=== PATIENT | female | born 1965 | race Caucasian/White ===

== ENCOUNTER → 2016-10-14 | Outpatient (CLI) | payer MEDICAID | LOC: RAD 07:37 | PROVIDERS: ATTEND Surgery | DX: R11.2 Nausea with vomiting, unspecified (principal); R10.11 Right upper quadrant pain | CPT/HCPCS: 78264; A9541 ==

== ENCOUNTER → 2016-12-02 | Outpatient (CLI) | payer MEDICAID | LOC: OD 09:18 | PROVIDERS: ATTEND Surgery | DX: R73.09 Other abnormal glucose (principal) | CPT/HCPCS: 36415; 83036 ==

== ENCOUNTER 2017-11-18 21:47 | Emergency (ER) | payer MEDICAID ==
--- NOTE | 2017-11-18 22:54 | ER Document Report ---
ED Medical Screen (RME) - General Chief Complaint: High Blood Sugar Stated Complaint: BLOOD SUGAR PROBLEMS Time Seen by Provider: 11/18/17 22:50 Mode of Arrival: Wheelchair Information source: Relative Notes: 52-year-old female presents to ED for very agitated shaken unable to stand on her feet. She is a diabetic but she also has a history of a DVT in his heart attack. states that she told him around 4 PM she took her insulin and then when she was trying to put the noodles and she got shaky and sweaty and hot and could not make any sense. He states he last saw her at 1:30 in the afternoon. Her Accu-Chek when she first came to the emergency room was 111 her Accu-Chek right now is 102. She is very shaky and agitated still at this time. She is not making complete sense. states this is not her normal self. There is no facial droop pupils are slow to respond, she cannot stand up. Will start blood work urine and CT the head and she will be examined by another provider. I have greeted and performed a rapid initial assessment of this patient. A comprehensive ED assessment and evaluation of the patient, analysis of test results and completion of medical decision making process will be conducted by an additional ED providers. TRAVEL OUTSIDE OF THE [place] IN LAST 30 DAYS: No - Related Data Allergies/Adverse Reactions: aspirin [Aspirin] Allergy (Severe, Verified 11/03/12 10:02) Hives Influenza A (H1N1)Vaccine 2009 * [Influenza A (H1N1)Vaccine 2009] Allergy ( Severe, Verified 11/03/12 10:02) Anaphylaxis Influenza Virus Vaccines [Influenza Virus Vaccine] Allergy (Severe, Verified 10:02) Anaphylaxis Tetanus Vaccines and Toxoid [Tetanus] Allergy (Severe, Verified 11/03/12 10:02) Anaphylaxis latex [Latex] Allergy (Intermediate, Verified 11/03/12 10:02) Hives Penicillins Allergy (Intermediate, Verified 01/12/13 15:23) Nausea miconazole [Miconazole] Allergy (Mild, Verified 11/03/12 10:02) Edema levothyroxine sodium [Levothyroxine Sodium] Allergy (Verified 11/03/12 10:02) swelling Past Medical History - Past Medical History Cardiac Medical History: Reports: Hx Coronary Artery Disease, Hx Heart Attack, Hx Hypercholesterolemia, Hx Hypertension, Hx Pulmonary Embolism - 2006 Denies: Hx Atrial Fibrillation, Hx Congestive Heart Failure, Hx Peripheral Vascular Disease, Hx Heart Murmur Pulmonary Medical History: Reports: Hx Asthma, Hx Bronchitis, Hx Pneumonia, Hx Respiratory Failure Denies: Hx COPD, Hx Sleep Apnea, Hx Tuberculosis Neurological Medical History: Reports: Hx Cerebrovascular Accident - Memory loss , Hx Migraine. Denies: Hx Seizures Endocrine Medical History: Reports: Hx Diabetes Mellitus Type 2, Hx Hypothyroidism. Denies: Hx Graves' Disease, Hx Hyperthyroidism Renal/ Medical History: Reports: Hx Kidney Stones, Hx Pelvic Inflammatory Disease. Denies: Hx End Stage Renal Disease, Hx Ovarian Cysts, Hx Peritoneal Dialysis Malignancy Medical History: Denies: Hx Breast Cancer, Hx Cervical Cancer, Hx Leukemia, Hx Lung Cancer, Hx Ovarian Cancer GI Medical History: Reports: Hx Irritable Bowel, Hx Liver Failure - 2010, Hx Ulcer. Denies: Hx Crohn's Disease, Hx Gastroesophageal Reflux Disease, Hx Hiatal Hernia, Hx Pancreatitis Musculoskeltal Medical History: Reports Hx Arthritis, Denies Hx Fibromyalgia, Denies Hx Multiple Sclerosis, Denies Hx Muscular Dystrophy Psychiatric Medical History: Denies: Hx Bipolar Disorder, Hx Dementia, Hx Depression, Hx Post Traumatic Stress Disorder, Hx Schizophrenia Traumatic Medical History: Reports: Hx Fractures Infectious Medical History: Denies: Hx HIV Past Surgical History: Reports: Hx Cardiac Surgery - stent placed 2006, Hx Section - partial 2008, Hx Gynecologic Surgery - partial hysterectomy, Hx Hysterectomy, Hx Orthopedic Surgery - back, right knee, left ankle. Denies: Hx Appendectomy, Hx Bowel Surgery, Hx Cholecystectomy, Hx Colostomy, Hx Coronary Artery Bypass Graft, Hx Gastric Bypass Surgery, Hx Herniorrhaphy, Hx Mastectomy, Hx Pacemaker, Hx Tonsillectomy, Hx Tubal Ligation - Immunizations Hx Diphtheria, Pertussis, Tetanus Vaccination: No - allergic
--- NOTE | 2017-11-18 23:34 | RADIOLOGY REPORT (SQ) ---
EXAM DESCRIPTION: CT HEAD WITHOUT COMPLETED DATE/TIME: 11/18/2017 11:04 pm REASON FOR STUDY: confused shakey COMPARISON: None. TECHNIQUE: Axial images acquired through the brain without intravenous contrast. Images reviewed wi bone, brain and subdural windows. Images stored on PACS. All CT scanners at this facility use dose modulation, iterative reconstruction, and/or weight based d osing when appropriate to reduce radiation dose to as low as reasonably achievable (ALARA). [facility]: Dose Right [facility]: CareDose [facility]: Dose Right [facility]: Teradose 4D [facility]: [employer] RADIATION DOSE: CT Rad equipment meets quality standard of care and radiation dose reduction techniq ues were employed. CTDIvol: 67.0 mGy. DLP: 1182 mGy-cm. mGy. LIMITATIONS: None. FINDINGS: VENTRICLES: Normal size and contour. CEREBRUM: No masses. No hemorrhage. No midline shift. No evidence for acute infarction. Normal gra y/white matter differentiation. No areas of low density in the white matter. CEREBELLUM: No masses. No hemorrhage. No alteration of density. No evidence for acute infarction. EXTRAAXIAL SPACES: No fluid collections. No masses. ORBITS AND GLOBE: No intra- or extraconal masses. Normal contour of globe without masses. CALVARIUM: No fracture. PARANASAL SINUSES: Left maxillary fluid in bilateral maxillary, ethmoid, and frontal sinus mucosal th ickening. SOFT TISSUES: No mass or hematoma. OTHER: No other significant finding. IMPRESSION: No acute intracranial findings. Acute on chronic sinusitis. EVIDENCE OF ACUTE STROKE: NO. COMMENT: Quality ID # [id number]: Final reports with documentation of one or more dose reduction techniques (e.g., Automated exposure control, adjustment of the mA and/or kV according to patient size, use of iterative reconstruction technique) TECHNICAL DOCUMENTATION: JOB ID: [id number] [place]-72 2010 [employer]- All Rights Reserved
[2017-11-19] MEDS ORDERED: NORMAL SALINE 1000 ML 1,000 ML IV ONE (00:21)
--- NOTE | 2017-11-19 01:11 | ER Document Report ---
ED General - General Chief Complaint: High Blood Sugar Stated Complaint: BLOOD SUGAR PROBLEMS Time Seen by Provider: 11/18/17 22:50 Mode of Arrival: Wheelchair Notes: Patient is a 52-year-old female who presents with complaint of altered mental status. Patient and said the for last week her blood sugars have been fluctuating greatly. The blood sugars been running anywhere from 60-600. The said he left the house to go take care of some in town around 1:30 PM. When he returned around 7 PM he noticed that his was confused. Patient herself notes that she is having trouble walking and getting around and also that her speech has been slurred. She denies fevers. She does mentions that she has had a lot of nasal congestion and pressure in his sinuses that started last 24 hours. When I walked into the room she is blowing large amounts of mucus out of her nose. TRAVEL OUTSIDE OF THE [place] IN LAST 30 DAYS: No - Related Data Allergies/Adverse Reactions: aspirin [Aspirin] Allergy (Severe, Verified 11/03/12 10:02) Hives Influenza A (H1N1)Vaccine 2009 * [Influenza A (H1N1)Vaccine 2009] Allergy ( Severe, Verified 11/03/12 10:02) Anaphylaxis Influenza Virus Vaccines [Influenza Virus Vaccine] Allergy (Severe, Verified 10:02) Anaphylaxis Tetanus Vaccines and Toxoid [Tetanus] Allergy (Severe, Verified 11/03/12 10:02) Anaphylaxis latex [Latex] Allergy (Intermediate, Verified 11/03/12 10:02) Hives Penicillins Allergy (Intermediate, Verified 01/12/13 15:23) Nausea miconazole [Miconazole] Allergy (Mild, Verified 11/03/12 10:02) Edema levothyroxine sodium [Levothyroxine Sodium] Allergy (Verified 11/03/12 10:02) swelling Past Medical History - General Information source: Relative - Social History Smoking Status: Current Every Day Smoker Chew tobacco use (# tins/day): No Frequency of alcohol use: None Drug Abuse: None Family History: Reviewed & Not Pertinent Patient has suicidal ideation: No Patient has homicidal ideation: No - Past Medical History Cardiac Medical History: Reports: Hx Coronary Artery Disease, Hx Heart Attack, Hx Hypercholesterolemia, Hx Hypertension, Hx Pulmonary Embolism - 2006 Denies: Hx Atrial Fibrillation, Hx Congestive Heart Failure, Hx Peripheral Vascular Disease, Hx Heart Murmur Pulmonary Medical History: Reports: Hx Asthma, Hx Bronchitis, Hx Pneumonia, Hx Respiratory Failure Denies: Hx COPD, Hx Sleep Apnea, Hx Tuberculosis Neurological Medical History: Reports: Hx Cerebrovascular Accident - Memory loss , Hx Migraine. Denies: Hx Seizures Endocrine Medical History: Reports: Hx Diabetes Mellitus Type 2, Hx Hypothyroidism. Denies: Hx Graves' Disease, Hx Hyperthyroidism Renal/ Medical History: Reports: Hx Kidney Stones, Hx Pelvic Inflammatory Disease. Denies: Hx End Stage Renal Disease, Hx Ovarian Cysts, Hx Peritoneal Dialysis Malignancy Medical History: Denies: Hx Breast Cancer, Hx Cervical Cancer, Hx Leukemia, Hx Lung Cancer, Hx Ovarian Cancer GI Medical History: Reports: Hx Irritable Bowel, Hx Liver Failure - 2010, Hx Ulcer. Denies: Hx Crohn's Disease, Hx Gastroesophageal Reflux Disease, Hx Hiatal Hernia, Hx Pancreatitis Musculoskeltal Medical History: Reports Hx Arthritis, Denies Hx Fibromyalgia, Denies Hx Multiple Sclerosis, Denies Hx Muscular Dystrophy Psychiatric Medical History: Denies: Hx Bipolar Disorder, Hx Dementia, Hx Depression, Hx Post Traumatic Stress Disorder, Hx Schizophrenia Traumatic Medical History: Reports: Hx Fractures Infectious Medical History: Denies: Hx HIV Past Surgical History: Reports: Hx Cardiac Surgery - stent placed 2006, Hx Section - partial 2008, Hx Gynecologic Surgery - partial hysterectomy, Hx Hysterectomy, Hx Orthopedic Surgery - back, right knee, left ankle. Denies: Hx Appendectomy, Hx Bowel Surgery, Hx Cholecystectomy, Hx Colostomy, Hx Coronary Artery Bypass Graft, Hx Gastric Bypass Surgery, Hx Herniorrhaphy, Hx Mastectomy, Hx Pacemaker, Hx Tonsillectomy, Hx Tubal Ligation - Immunizations Hx Diphtheria, Pertussis, Tetanus Vaccination: No - allergic Review of Systems - Review of Systems Notes: My Normal Review Basic REVIEW OF SYSTEMS: CONSTITUTIONAL : Denies fever, chills, or sweats. Denies recent illness. EENT: Venous pressure. Nasal congestion. CARDIOVASCULAR: Denies chest pain. RESPIRATORY: Denies cough, cold, or chest congestion. Denies shortness of breath, difficulty breathing, or wheezing. GASTROINTESTINAL: Denies abdominal pain. Denies nausea, vomiting, or diarrhea. Denies constipation. Last BM: GENITOURINARY: Denies difficulty urinating, painful urination, burning, frequency, or blood in urine. MUSCULOSKELETAL: Denies neck or back pain or joint pain or swelling. SKIN: Denies rash or skin lesions. NEUROLOGICAL: Altered mental status with gait dysfunction. ALL OTHER SYSTEMS REVIEWED AND NEGATIVE. Physical Exam - Vital signs Vitals: Resp Pulse Ox 21 H 97 11/19/17 00:22 11/19/17 00:22 - Notes Notes: General Appearance: Well nourished, alert, cooperative, patient is awake and alert and cooperative and seems aware of what is going on around her however she also seems to be at times hallucinating and picking at things that are not there. Also at times is having garbled speech.. Vitals: reviewed, See vital signs table. Head: no swelling or tenderness to the head Eyes: PERRL, EOMI, Conjuctiva clear Mouth: No decreasd moisture Throat: No tonsillar inflammation, No airway obstruction, No lymphadenopathy Neck: Supple, no neck tenderness, No thyromegaly Nose: Patient is a large amount of yellowish greenish mucus in her nose. I do not see any black lesions or necrotic lesions in the nasopharynx. Lungs: No wheezing, No rales, No rhonci, No accessory muscle use, good air exchange bilaterally. Heart: Normal rate, Regular rythm, No murmur, no rub Abdomen: Normal BS, soft, No rigidity, No abdominal tenderness, No guarding, no rebound, no abdominal masses, no organomegaly Extremities: strength 5/5 in all extremities, good pulses in all extremities, no swelling or tenderness in the extremities, no edema. Skin: warm, dry, appropriate color, no rash Neuro: , oriented x 2, responds appropriately to most questions. Cranial nerves II through XII are intact except for occasional garbled speech. Upon trying to have the patient walk she has had difficulty standing up and getting off the bed. She is unable to get off the bed without my help to steady her. Without restarting her she immediately falls back onto the bed. She cannot take any steps forward. She has equal strength in all 4 extremities. She does not have any focal weakness on one side versus the other. Distal sensation is intact. Course - Re-evaluation Re-evalutation: 11/19/17 01:07 Patient does have some gati disturbances and corrdination issues on exam. This seems more concerning with a cerebellar stroke. She is outside window for thrombolytics as the says the las time he sw her asymptomatic was at 1: 30 pm. She does have some sinus congestion and her CT scan was read as acute on chronic sinusitis so I did call and speak with Dr. Woods, radiologist, and asked him if there were any findings on CT scan consistent with what would be seen with fungal sinusitis. He said there is not. I do understand that fungal sinusitis cannot be fully excluded with CT scan alone however they are usually some typical findings which the patient does not have on the scan. Also I think fungal sinusitis is much less likely being the patient's symptoms were very sudden in onset today. We will continue workup for transfer to the exact cause of the patient's coordination. 11/19/17 01:10 11/19/17 02:27 Patient's blood work came back with a leukocytosis of 27,000 suggests is that this could be meningitis. I will perform a lumbar puncture. I will place patient on isolation precautions. Also informed the and gave him a mask to wear in all as well as place mask and the patient. I have ordered Rocephin and inform the nurse to get that started. 11/19/17 02:57 Lumbar puncture was performed and CSF is clear and has been sent to the lab. 11/19/17 03:47 I have called lab and informed him the importance of needing to know the patient 's cell count on CSF. She says she is running it now and she will call me soon as the result is back. 11/19/17 03:59 Patient does not have elevated white blood cells in CSF. Her mental status is staying stable. She is able answer my questions appropriately but still has some coordination issues and is having headache and pressure in her sinuses. I am try to get in touch with infectious disease doctor and accepting facility to see if we need to start amphotericin B. I have called [facility] and [facility]. They are both on diversion and unable to help. I have called [facility]. They are also on diversion. I will will try to call [facility] in the next [place] to try to help. 11/19/17 04:00 11/19/17 04:23 I spoke with [facility]. They are contacting the infectious disease physician for me. 11/19/17 04:32 I am still having difficulty in touch with infectious disease doctor. Have not heard back from one. I went ahead and ordered amphotericin B as I do have suspicion for fungal sinusitis and I do not want delay treatment any further. 11/19/17 04:53 I did hear back from infectious disease and spoke with Dr. Jailyn Carbajal. She says that she feels that the patient needs to see ENT and have a sinus biopsy before starting antifungals being that the CT scan did not show evidence of fungal sinusitis. She will have me talk to the emergency medicine physician at [facility] to see if they can take the patient is an ER to ER transfer. The ER physician wants me to speak with the ENT doctor. I am waiting to hear back from the ENT doctor. 11/19/17 08:35 I did eventually speak with Dr. Sweeney, ENT physician, who agrees that the patient is to be evaluated. He requests that we do an ER to ER transfer and then he can come down and they can evaluate the patient determine whether not she does need to go to the OR for sinus biopsy. I again expressed to him that I do not know for sure if this is a fungal sinusitis but I have no way of ruling out and being that she has sinusitis on CT scan with altered mental status and she is a poorly controlled diabetic and she has large amount of mucus coming from her nose with a high leukocytosis I feel that this is a strong possibility. He agrees. I therefore spoke with the ER physician, Dr. Vanegas, is very kindly agreed to accept the patient for transfer. She received Rocephin and vancomycin. I will order repeat Accu-Chek to make sure her blood sugars are remaining stable. Dictation of this chart was performed using voice recognition software; therefore, there may be some unintended grammatical errors. 11/19/17 08:37 - Vital Signs Vital signs: Temp Pulse Resp BP Pulse Ox 98.8 F 16 116/82 100 11/19/17 06:19 11/19/17 07:36 11/19/17 07:00 11/19/17 07:36 - Laboratory Result Diagrams: 11/19/17 01:00 11/19/17 01:00 Laboratory results interpreted by me: 11/18/17 11/19/17 11/19/17 22:01 00:23 01:00 WBC 27.4 H RBC 5.29 H Hgb 15.7 H Band Neutrophils % 1 L Abs Neuts (Manual) 18.6 H Abs Lymphs (Manual) 6.0 H Abs Monocytes (Manual) 2.5 H Abs Basophils (Manual) 0.3 H Potassium Est GFR (Non-Af Amer) Glucose POC Glucose 111 H 63 L Calcium Direct Bilirubin Alkaline Phosphatase Ammonia Creatine Kinase Urine Protein Urine Glucose (UA) CSF Glucose Acetaminophen 11/19/17 11/19/17 11/19/17 01:00 02:38 03:30 WBC RBC Hgb Band Neutrophils % Abs Neuts (Manual) Abs Lymphs (Manual) Abs Monocytes (Manual) Abs Basophils (Manual) Potassium 3.1 L Est GFR (Non-Af Amer) 58 L Glucose 47 L POC Glucose Calcium 11.3 H Direct Bilirubin 0.5 H Alkaline Phosphatase 171 H Ammonia < 8.7 L Creatine Kinase 22 L Urine Protein Urine Glucose (UA) CSF Glucose 197 H Acetaminophen < 10 L 11/19/17 04:34 WBC RBC Hgb Band Neutrophils % Abs Neuts (Manual) Abs Lymphs (Manual) Abs Monocytes (Manual) Abs Basophils (Manual) Potassium Est GFR (Non-Af Amer) Glucose POC Glucose Calcium Direct Bilirubin Alkaline Phosphatase Ammonia Creatine Kinase Urine Protein 100 H Urine Glucose (UA) >=500 H CSF Glucose Acetaminophen Discharge - Discharge Referrals: PAUL KUMAR, [employer] [Primary Care Provider] - Follow up as needed
--- NOTE | 2017-11-19 01:12 | ER Document Report ---
ED NIH Stroke Scale - NIH Stroke Scale *: 1. NIH scale should be completed with appropriate accompanying assessment tools. *: 2. The NIH should reflect what the patient is capable of doing and should not be coached by the clinician. 1a. Level of Consciousness: 0=Alert;keenly responsive -: 1=Drowsy -: 2=Obtunded -: 3=Coma/unresponsive or reflex to noxious stimuli. 1a. Responses: 0 1b. Orientation Questions: a. What month is it? -: b. How old are you? -: 0=Answers both questions correctly. -: 1=Answers one question correctly or patient is intubated or has orotracheal trauma. -: 2=Answers neither question correctly. 1b. Responses: 0 1c. Response to commands: a. Open and close eyes? -: b. Redipper and release hand? -: Credit is given despite weakness. Demonstration of task is permitted. Substitute command if hands cannot be used. -: 0=Performs both tasks correctly -: 1=Performs one task correctly -: 2=Performs neither task correctly 1c. Responses: 0 2. Gaze: Establish eye contact and instruct patient to "Follow my finger" -: 0=Normal -: 1=Partial gaze palsy. Gaze is abnormal in one or both eyes, but where forced deviation or total gaze paresis is not present. -: 2=Forced deviation or total gaze paresis. 2. Responses: 0 3. Visual Kolb: Sees fingers in all four quadrants. -: 0=No visual loss. -: 1=Partial hemianopsia. -: 2=Complete hemianopsia. -: 3=Bilateral hemianopsia (including Cortical blindness) 3. Responses: 0 4. Facial Movement: Instruct patient to: -: a. Show me your teeth -: b. Raise your eyebrows -: c. Close your eyes -: d. Smile -: 0=Normal symmetrical movement -: 1=Minor paralysis (flattened nasolabial fold, asymmetry on smiling). -: 2=Partial paralysis (total or near total paralysis of lower face). -: 3=Complete paralysis of upper and lower face 4. Responses: 0 5. Motor functions (left arm): Alternate sides and extend each arm with palms down (90 degrees if sitting or 45 degrees for supine). -: 0=No drift;limb holds for full 10 seconds. -: 1=Drift; limb holds but drifts down before full 10 seconds, but does not hit bed. -: 2=Some effort against gravity; limb cannot get to or maintain position. -: 3=No effort against gravity; limb falls. -: 4=No movement. -: UN=Amputation, joint fusion, explain in comments. 5. Responses (left arm): 0 5. Motor Functions (right arm): Alternate sides and extend each arm with palms down (90 degrees if sitting or 45 degrees for supine). -: 0=No drift;limb holds for full 10 seconds. -: 1=Drift; limb holds but drifts down before full 10 seconds, but does not hit bed. -: 2=Some effort against gravity; limb cannot get to or maintain position. -: 3=No effort against gravity; limb falls. -: 4=No movement. -: UN=Amputation, joint fusion, explain in comments. 5. Responses (right arm): 0 6. Motor Functions (left leg): With patient lying supine, alternate sides and extend each leg (30 degrees always while supine). -: 0=No drift, leg holds position for full 5 seconds -: 1=Drift; leg falls before full 5 seconds but does not hit bed. -: 2=Some effort against gravity, leg falls to bed but some effort against gravity. -: 3=No effort against gravity, leg falls to bed immediately. -: 4=No movement. -: UN=Amputation, joint fusion; explain in comments. 6. Responses (left leg): 0 6. Motor Functions (right leg): With patient lying supine, alternate sides and extend each leg (30 degrees always while supine). -: 0=No drift, leg holds position for full 5 seconds -: 1=Drift; leg falls before full 5 seconds but does not hit bed. -: 2=Some effort against gravity, leg falls to bed but some effort against gravity. -: 3=No effort against gravity, leg falls to bed immediately. -: 4=No movement. -: UN=Amputation, joint fusion; explain in comments. 6. Responses (right leg): 0 7. Limb Ataxia: With eyes open instruct patient to: -: a. "Touch your finger to your nose". -: b. "Touch your heel to your arango" -: 0=Absent -: 1=Present in one limb. -: 2=Present in two limbs. -: UN=Amputation or joint fusion; explain in comments. 7. Responses: 2 8. Sensory: Test sensation using pinprick or noxious stimuli. Test as many body parts as possible. -: 0=Normal;no sensory loss -: 1=Mile to moderate sensory loss (patient feels pin prick but is less sharp on affected side). -: 2=Severe or total sensory loss. 8. Responses: 0 9. Best Language: Instruct patient to: -: a. "Describe what you see in this picture." -: b. "Name the items in this picture." -: c. "Read these sentences." -: 0=No aphasia, normal -: 1=Mild to moderate aphasia. -: 2=Severe aphasia -: 3=Mute, global aphasia, no usable speech or auditory comprehension. 9. Responses: 0 10. Articulation, Dysarthia: Instruct patient to: -: "Read these words" or "Repeat these words" -: 0=Normal -: 1=Mild to moderate; patient may slur some words but can be understood without difficulty. -: 2=Severe; patients speech so slurred as to be unintelligible in the absence of dysphasia. -: UN=Intubated or other physical barrier, explain in comments. 10. Responses: 1 11. Extinction or inattention: 0=No abnormality -: 1= Visual, tactile, auditory, spatial, or personal inattention or extinction to bilateral simulation in one or the sensory modalities. -: 2=Profound castro-inattention or castro-inattention to more than one modality; does not recognize own hand. 11. Responses: 0 Total Score: 3
[2017-11-19 01:18] LABS: HEMATOCRIT 45.7 % (36.0-47.0); HEMOGLOBIN 15.7 g/dL (12.0-15.5); MEAN CORPUSCULAR HEMOGLOBIN 29.6 pg (27.0-33.4); MEAN CORPUSCULAR HGB CONC 34.3 g/dL (32.0-36.0); MEAN CORPUSCULAR VOLUME 86 fl (80-97); PLATELET COUNT 354 10^3/uL (150-450); RED BLOOD COUNT 5.29 10^6/uL (3.72-5.28); RED CELL DISTRIBUTION WIDTH 12.5 % (11.5-14.0); WHITE BLOOD COUNT 27.4 10^3/uL (4.0-10.5)
[2017-11-19 01:20] LABS: VENOUS BLOOD HCO3 28.8 mmol/L (20-32); VENOUS BLOOD PH 7.4 (7.30-7.42)
[2017-11-19 01:36] LABS: ABSOLUTE MONOCYTES # (MANUAL) 2.5 10^3/uL (0.1-1.4); ABSOLUTE NEUTROPHILS# (MANUAL) 18.6 10^3/uL (1.7-8.2); ACETAMINOPHEN < 10 ug/mL (10-30); ALANINE AMINOTRANSFERASE 45 U/L (9-52); ALBUMIN 4.4 g/dL (3.5-5.0); ALCOHOL < 10 mg/dL (NONE DETECTED); ALKALINE PHOSPHATASE 171 U/L (38-126); ANION GAP 16 (5-19); ASPARTATE AMINO TRANSFERASE 33 U/L (14-36); BAND NEUTROPHILS % (MANUAL) 1 % (3-5); BASOPHILS % (MANUAL) 1 % (0-2); BILIRUBIN,DIRECT 0.5 mg/dL (0.0-0.4); BILIRUBIN,TOTAL 0.5 mg/dL (0.2-1.3); BLOOD UREA NITROGEN 10 mg/dL (7-20); CALCIUM 11.3 mg/dL (8.4-10.2); CARBON DIOXIDE 25 mmol/L (22-30); CHLORIDE 99 mmol/L (98-107); CREATINE KINASE 22 U/L (30-135); EOSINOPHILS % (MANUAL) 0 % (0-6); GLUCOSE 47 mg/dL (75-110); LYMPHOCYTES % (MANUAL) 19 % (13-45); MONOCYTES % (MANUAL) 9 % (3-13); POTASSIUM 3.1 mmol/L (3.6-5.0); SEGMENTED NEUTROPHILS % (MAN) 67 % (42-78); SODIUM 140.4 mmol/L (137-145); TOTAL CELLS COUNTED 100; TOTAL PROTEIN 8.1 g/dL (6.3-8.2)
[2017-11-19 01:39] LABS: PLATELET COMMENT ADEQUATE; RBC MORPHOLOGY COMMENT NORMO-CYTIC/CHROMIC; TOXIC GRANULATION 1+
--- NOTE | 2017-11-19 01:59 | RADIOLOGY REPORT (SQ) ---
EXAM DESCRIPTION: CHEST SINGLE VIEW CLINICAL HISTORY: altered mental status COMPARISON: 11/10/2015 FINDINGS: Single frontal view of the chest. Atherosclerotic calcification aortic arch. Leads overlie the chest. No consolidation, pneumothorax, or pleural effusion. No displaced rib fractures identified. Upper abdominal soft tissues are unremarkable. IMPRESSION: 1. No acute pulmonary process identified.
[2017-11-19] MEDS ORDERED: CEFTRIAXONE INJ 1000 MG VIAL IV ONE (02:22)
[2017-11-19] MEDS ORDERED: LIDOCAINE 1% INJ-PF (10 MG/ML) 30 ML SDV INJ ONE (02:27)
[2017-11-19 03:37] LABS: GLUCOSE,CSF 197 mg/dL (40-70); PROTEIN,CSF 49 mg/dL (12-60)
[2017-11-19 04:05] LABS: APPEARANCE ALL TUBES CLEAR; APPEARANCE TUBE 1 CLEAR; APPEARANCE TUBE 2 CLEAR; APPEARANCE TUBE 3 CLEAR; APPEARANCE TUBE 4 CLEAR; COLOR ALL TUBES COLORLESS; COLOR TUBE 1 COLORLESS; COLOR TUBE 2 COLORLESS; COLOR TUBE 3 COLORLESS; COLOR TUBE 4 COLORLESS; CSF TUBE NUMBER 1
[2017-11-19 04:06] LABS: CSF TOTAL VOLUME 4.5 CC; RED BLOOD CELL,CSF 0 /uL (0-10); VOLUME TUBE 2 1.5 CC
[2017-11-19 04:07] LABS: WHITE BLOOD CELL,CSF 0 /uL (0-5)
[2017-11-19] MEDS ORDERED: AMPHOTERICIN B 50 MG VIAL IV ONE (04:31)
[2017-11-19] MEDS ORDERED: VANCOMYCIN HCL INJ 1000 MG VIAL IV ONE (04:46)
[2017-11-19 04:48] LABS: A TYPE INFLUENZA AG NEGATIVE (NEGATIVE); B INFLUENZA AG NEGATIVE (NEGATIVE)
[2017-11-19 05:08] LABS: APPEARANCE,URINE SLIGHTLY-CLOUDY; BILIRUBIN,URINE NEGATIVE (NEGATIVE); COLOR,URINE YELLOW; GLUCOSE, URINE >=500 mg/dL (NEGATIVE); KETONES,URINE NEGATIVE (NEGATIVE); LEUKOCYTE ESTERASE,URINE NEGATIVE (NEGATIVE); NITRITE,URINE NEGATIVE (NEGATIVE); PROTEIN,URINE 100 mg/dL (NEGATIVE); URINE SPECIFIC GRAVITY 1.023; UROBILINOGEN,URINE NEGATIVE mg/dL (<2.0)
[2017-11-19 05:18] LABS: URINE AMPHETAMINES SCREEN NEGATIVE; URINE BARBITURATES SCREEN NEGATIVE; URINE BENZODIAZEPINES SCREEN NEGATIVE; URINE COCAINE SCREEN NEGATIVE; URINE MARIJUANA (THC) SCREEN NEGATIVE; URINE METHADONE SCREEN NEGATIVE; URINE PHENCYCLIDINE SCREEN NEGATIVE
[2017-11-19] MEDS ORDERED: INSULIN REG, HUMAN 100 UNIT/ML 3 ML VIAL (PYX) SUBCUT ONE (08:59)
[2017-11-19] MEDS ORDERED: MORPHINE SULFATE 10 MG/ML INJ IV ONE (09:00)
--- NOTE | 2017-11-19 09:17 | EKG REPORT ---
SEVERITY:- ABNORMAL ECG - SINUS TACHYCARDIA LEFT ATRIAL ABNORMALITY PROBABLE LEFT VENTRICULAR HYPERTROPHY BORDERLINE T ABNORMALITIES, INFERIOR LEADS BORDERLINE PROLONGED QT INTERVAL : Confirmed by: Darien Diggs 19-Nov-2017 09:17:09
[2017-11-19] MEDS ORDERED: FENTANYL CITRATE INJ/PF 100 MCG/2 ML AMPUL IV ONE (14:21)
[2017-11-19 19:23] VITALS: BP 130/95
== END 2017-11-19 19:20 | disposition short-term general hospital (02) ==
LOC: ER 21:47
PROC: 00JU3ZZ Inspection of Spinal Canal, Percutaneous Approach (ICD-10-PCS; principal; 2017-11-18)
DX: E11.65 Type 2 diabetes mellitus with hyperglycemia (principal); J32.9 Chronic sinusitis, unspecified; R51 Headache; D72.829 Elevated white blood cell count, unspecified; R41.82 Altered mental status, unspecified; Z79.4 Long term (current) use of insulin; I25.10 Atherosclerotic heart disease of native coronary artery without angina pectoris; I10 Essential (primary) hypertension; E78.00 Pure hypercholesterolemia, unspecified; Z86.718 Personal history of other venous thrombosis and embolism; I25.2 Old myocardial infarction; Z88.6 Allergy status to analgesic agent; Z88.7 Allergy status to serum and vaccine; Z88.0 Allergy status to penicillin; Z86.73 Personal history of transient ischemic attack (TIA), and cerebral infarction without residual deficits; Z87.442 Personal history of urinary calculi; Z90.710 Acquired absence of both cervix and uterus
CPT/HCPCS: 93005; 99283; 36415; 87040; 87070; 87205; 82553; 82962; 80307 ×3; 82140; 82550; 85025; 89050; 82945; 84157; 80053; 81001; 82803; 83605; 87804; 71045; 70450; 93010; 62270; J3010; J3490; J2270; J1815; J0696; J7030; J3370

== ENCOUNTER 2018-03-05 15:40 | Inpatient (IN) | payer MEDICAID ==
--- NOTE | 2018-03-05 16:33 | ER Document Report ---
ED Medical Screen (RME) - General Chief Complaint: Chest Pain Stated Complaint: CHEST PAIN Time Seen by Provider: 03/05/18 16:18 Mode of Arrival: Ambulatory Information source: Patient Notes: 52-year-old female presents altered patient admits to chest pain confusion slurred speech I have greeted and performed a rapid initial assessment of this patient. A comprehensive ED assessment and evaluation of the patient, analysis of test results and completion of the medical decision making process will be conducted by additional ED providers. PHYSICAL EXAMINATION: GENERAL: Chronically ill-appearing female HEAD: Atraumatic, normocephalic. EYES: Pupils equal round extraocular movements intact, conjunctiva are normal. ENT: Nares patent NECK: Normal range of motion LUNGS: No respiratory distress Musculoskeletal: Normal range of motion NEUROLOGICAL: Normal speech, normal gait. PSYCH: Normal mood, normal affect. SKIN: Dry lips TRAVEL OUTSIDE OF THE [place] IN LAST 30 DAYS: No - Related Data Allergies/Adverse Reactions: aspirin [Aspirin] Allergy (Severe, Verified 03/05/18 15:46) Hives Influenza A (H1N1)Vaccine 2009 * [Influenza A (H1N1)Vaccine 2009] Allergy ( Severe, Verified 03/05/18 15:46) Anaphylaxis Influenza Virus Vaccines [Influenza Virus Vaccine] Allergy (Severe, Verified 15:46) Anaphylaxis Tetanus Vaccines and Toxoid [Tetanus] Allergy (Severe, Verified 03/05/18 15:46) Anaphylaxis latex [Latex] Allergy (Intermediate, Verified 03/05/18 15:46) Hives Penicillins Allergy (Intermediate, Verified 03/05/18 15:46) Nausea miconazole [Miconazole] Allergy (Mild, Verified 03/05/18 15:46) Edema levothyroxine sodium [Levothyroxine Sodium] Allergy (Verified 03/05/18 15:46) swelling Past Medical History - Social History Chew tobacco use (# tins/day): No Frequency of alcohol use: None Drug Abuse: None - Past Medical History Cardiac Medical History: Reports: Hx Coronary Artery Disease, Hx Heart Attack, Hx Hypercholesterolemia, Hx Hypertension, Hx Pulmonary Embolism - 2006 Denies: Hx Atrial Fibrillation, Hx Congestive Heart Failure, Hx Peripheral Vascular Disease, Hx Heart Murmur Pulmonary Medical History: Reports: Hx Asthma, Hx Bronchitis, Hx Pneumonia, Hx Respiratory Failure Denies: Hx COPD, Hx Sleep Apnea, Hx Tuberculosis Neurological Medical History: Reports: Hx Cerebrovascular Accident - Memory loss , Hx Migraine. Denies: Hx Seizures Endocrine Medical History: Reports: Hx Diabetes Mellitus Type 2, Hx Hypothyroidism. Denies: Hx Graves' Disease, Hx Hyperthyroidism Renal/ Medical History: Reports: Hx Kidney Stones, Hx Pelvic Inflammatory Disease. Denies: Hx End Stage Renal Disease, Hx Ovarian Cysts, Hx Peritoneal Dialysis Malignancy Medical History: Denies: Hx Breast Cancer, Hx Cervical Cancer, Hx Leukemia, Hx Lung Cancer, Hx Ovarian Cancer GI Medical History: Reports: Hx Irritable Bowel, Hx Liver Failure - 2010, Hx Ulcer. Denies: Hx Crohn's Disease, Hx Gastroesophageal Reflux Disease, Hx Hiatal Hernia, Hx Pancreatitis Musculoskeltal Medical History: Reports Hx Arthritis, Denies Hx Fibromyalgia, Denies Hx Multiple Sclerosis, Denies Hx Muscular Dystrophy Psychiatric Medical History: Denies: Hx Bipolar Disorder, Hx Dementia, Hx Depression, Hx Post Traumatic Stress Disorder, Hx Schizophrenia Traumatic Medical History: Reports: Hx Fractures Infectious Medical History: Denies: Hx HIV Past Surgical History: Reports: Hx Cardiac Surgery - stent placed 2006, Hx Section - partial 2008, Hx Gynecologic Surgery - partial hysterectomy, Hx Hysterectomy, Hx Orthopedic Surgery - back, right knee, left ankle. Denies: Hx Appendectomy, Hx Bowel Surgery, Hx Cholecystectomy, Hx Colostomy, Hx Coronary Artery Bypass Graft, Hx Gastric Bypass Surgery, Hx Herniorrhaphy, Hx Mastectomy, Hx Pacemaker, Hx Tonsillectomy, Hx Tubal Ligation - Immunizations Hx Diphtheria, Pertussis, Tetanus Vaccination: No - allergic Physical Exam - Vital signs Vitals: Temp Pulse Resp BP Pulse Ox 96.7 F L 50 L 16 100/80 100 03/05/18 16:03/05/18 16:02 03/05/18 16:02 03/05/18 16:02 03/05/18 16:02 Course - Vital Signs Vital signs: Temp Pulse Resp BP Pulse Ox 96.7 F L 50 L 16 100/80 100 03/05/18 16:02 03/05/18 16:02 03/05/18 16:02 03/05/18 16:02 03/05/18 16:02
--- NOTE | 2018-03-05 16:50 | RADIOLOGY REPORT (SQ) ---
EXAM DESCRIPTION: CT HEAD WITHOUT COMPLETED DATE/TIME: 03/05/2018 4:42 pm REASON FOR STUDY: altered COMPARISON: 11/18/2017. TECHNIQUE: Axial images acquired through the brain without intravenous contrast. Images reviewed wi th bone, brain and subdural windows. Additional sagittal and coronal reconstructions were generated. Images stored on PACS. All CT scanners at this facility use dose modulation, iterative reconstruction, and/or weight based d osing when appropriate to reduce radiation dose to as low as reasonably achievable (ALARA). [facility]: Dose Right [facility]: CareDose [facility]: Dose Right [facility]: Teradose 4D [facility]: Smart StudioEX RADIATION DOSE: CT Rad equipment meets quality standard of care and radiation dose reduction techniq ues were employed. CTDIvol: 53.2 mGy. DLP: 991 mGy-cm. mGy. LIMITATIONS: None. FINDINGS: VENTRICLES: Normal size and contour. CEREBRUM: No masses. No hemorrhage. No midline shift. No evidence for acute infarction. Normal gra y/white matter differentiation. No areas of low density in the white matter. CEREBELLUM: No masses. No hemorrhage. No alteration of density. No evidence for acute infarction. EXTRAAXIAL SPACES: No fluid collections. No masses. ORBITS AND GLOBE: No intra- or extraconal masses. Normal contour of globe without masses. CALVARIUM: No fracture. PARANASAL SINUSES: Mucous membrane thickening in the right maxillary sinus. SOFT TISSUES: No mass or hematoma. OTHER: No other significant finding. IMPRESSION: NORMAL BRAIN CT WITHOUT CONTRAST. EVIDENCE OF ACUTE STROKE: NO. COMMENT: Quality ID # 436: Final reports with documentation of one or more dose reduction techniques (e.g., Automated exposure control, adjustment of the mA and/or kV according to patient size, use of iterative reconstruction technique) TECHNICAL DOCUMENTATION: JOB ID: [id number] [employer]- All Rights Reserved Reading location - IP/workstation name: [email or web address]
--- NOTE | 2018-03-05 16:55 | RADIOLOGY REPORT (SQ) ---
EXAM DESCRIPTION: CHEST SINGLE VIEW COMPLETED DATE/TIME: 03/05/2018 4:45 pm REASON FOR STUDY: altered COMPARISON: 11/19/2017 EXAM PARAMETERS: NUMBER OF VIEWS: One view. TECHNIQUE: Single frontal radiographic view of the chest acquired. RADIATION DOSE: NA LIMITATIONS: None. FINDINGS: LUNGS AND PLEURA: No opacities, masses or pneumothorax. No pleural effusion. MEDIASTINUM AND HILAR STRUCTURES: No masses. Contour normal. HEART AND VASCULAR STRUCTURES: Heart normal in size. Normal vasculature. BONES: No acute findings. HARDWARE: None in the chest. OTHER: No other significant finding. IMPRESSION: NO ACUTE RADIOGRAPHIC FINDING IN THE CHEST. TECHNICAL DOCUMENTATION: JOB ID: [id number] [employer]- All Rights Reserved Reading location - IP/workstation name: [email or web address]
[2018-03-05 17:02] LABS: INTERNATIONAL RATION (INR) 0.94
[2018-03-05 17:05] LABS: ABSOLUTE BASOPHILS # (AUTO) 0.2 10^3/uL (0.0-0.2); ABSOLUTE EOSINOPHILS # (AUTO) 0.4 10^3/uL (0.0-0.6); ABSOLUTE LYMPHOCYTES (AUTO) 5.7 10^3/uL (0.5-4.7); ABSOLUTE MONOCYTES (AUTO) 1.5 10^3/uL (0.1-1.4); ABSOLUTE NEUT (AUTO) 10.9 10^3/uL (1.7-8.2); BASOPHILS % (AUTO) 1.3 % (0-2); EOSINOPHILS % (AUTO) 2.1 % (0-6); HEMATOCRIT 44.7 % (36.0-47.0); HEMOGLOBIN 15.6 g/dL (12.0-15.5); LYMPHOCYTES % (AUTO) 30.7 % (13-45); MEAN CORPUSCULAR HGB CONC 34.8 g/dL (32.0-36.0); MEAN CORPUSCULAR VOLUME 89 fl (80-97); MONOCYTES % (AUTO) 7.9 % (3-13); PLATELET COUNT 372 10^3/uL (150-450); RED BLOOD COUNT 5.03 10^6/uL (3.72-5.28); TOTAL CELLS COUNTED % (AUTO) 100 %; WHITE BLOOD COUNT 18.7 10^3/uL (4.0-10.5)
[2018-03-05 17:06] LABS: PROTHROMBIN TIME 13.1 SEC (11.4-15.4)
[2018-03-05 17:10] LABS: ALANINE AMINOTRANSFERASE 65 U/L (9-52); ALBUMIN 4.7 g/dL (3.5-5.0); ALKALINE PHOSPHATASE 177 U/L (38-126); ANION GAP 15 (5-19); ASPARTATE AMINO TRANSFERASE 55 U/L (14-36); BILIRUBIN,DIRECT 0.5 mg/dL (0.0-0.4); BILIRUBIN,TOTAL 0.6 mg/dL (0.2-1.3); BLOOD UREA NITROGEN 15 mg/dL (7-20); CALCIUM 11.3 mg/dL (8.4-10.2); CARBON DIOXIDE 28 mmol/L (22-30); CHLORIDE 97 mmol/L (98-107); CREATINE KINASE 26 U/L (30-135); GLUCOSE 50 mg/dL (75-110); POTASSIUM 3.2 mmol/L (3.6-5.0); SODIUM 139.7 mmol/L (137-145); TOTAL PROTEIN 8.6 g/dL (6.3-8.2)
[2018-03-05] MEDS: NORMAL SALINE 1000 ML 1,000 ML IV PRN ×2 (17:20→21:14)
[2018-03-05 17:22] LABS: CREATINE KINASE MB 0.47 ng/mL (<4.55); TROPONIN I 0.022 ng/mL
[2018-03-05] MEDS ORDERED: POTASSIUM CHLORIDE 20 MEQ/15 ML UDCUP PO ONE (17:26)
[2018-03-05] MEDS ORDERED: RINGERS SOLUTION,LACTATED 1,000 ML IV ONE ×2 (17:28→21:09)
--- NOTE | 2018-03-05 17:35 | ER Document Report ---
ED General - General Chief Complaint: Chest Pain Stated Complaint: CHEST PAIN Time Seen by Provider: 03/05/18 16:18 Mode of Arrival: Ambulatory Information source: Patient, Relative Notes: This is a 52-year-old female with a history of coronary artery disease (1 stent) , diabetes (insulin requiring), CVA in the past, chronic back pain who presents to the emergency room with confusion after a syncopal episode at home in the setting of recent elevated blood sugar. Patient states she started a new cream on her legs for chronic pain (diclofenac, lidocaine, prilocaine, cyclobenzaprine , gabapentin) and she started to feel weird afterwards. Patient's states that the patient has been confused and that she fell and was complaining of generalized weakness. He denies that she had any head trauma and that she just got a slouched to the ground. He states that the patient definitely appears confused at this time. TRAVEL OUTSIDE OF THE [place] IN LAST 30 DAYS: No - HPI Onset: Just prior to arrival Onset/Duration: Gradual Quality of pain: No pain Severity: None Pain Level: Denies Associated symptoms: denies: Chest pain, Fever, Shortness of breath Exacerbated by: Denies Relieved by: Denies Similar symptoms previously: Yes Recently seen / treated by doctor: No - Related Data Allergies/Adverse Reactions: aspirin [Aspirin] Allergy (Severe, Verified 03/05/18 15:46) Hives Influenza A (H1N1)Vaccine 2009 * [Influenza A (H1N1)Vaccine 2008] Allergy ( Severe, Verified 03/05/18 15:46) Anaphylaxis Influenza Virus Vaccines [Influenza Virus Vaccine] Allergy (Severe, Verified 15:46) Anaphylaxis Tetanus Vaccines and Toxoid [Tetanus] Allergy (Severe, Verified 03/05/18 15:46) Anaphylaxis latex [Latex] Allergy (Intermediate, Verified 03/05/18 15:46) Hives Penicillins Allergy (Intermediate, Verified 03/05/18 15:46) Nausea miconazole [Miconazole] Allergy (Mild, Verified 03/05/18 15:46) Edema levothyroxine sodium [Levothyroxine Sodium] Allergy (Verified 03/05/18 15:46) swelling Past Medical History - General Information source: Patient - Social History Smoking Status: Current Every Day Smoker Chew tobacco use (# tins/day): No Frequency of alcohol use: None Drug Abuse: None Lives with: Spouse/Significant other Family History: Reviewed & Not Pertinent Patient has suicidal ideation: No Patient has homicidal ideation: No - Past Medical History Cardiac Medical History: Reports: Hx Coronary Artery Disease, Hx Heart Attack, Hx Hypercholesterolemia, Hx Hypertension, Hx Pulmonary Embolism - 2006 Denies: Hx Atrial Fibrillation, Hx Congestive Heart Failure, Hx Peripheral Vascular Disease, Hx Heart Murmur Pulmonary Medical History: Reports: Hx Asthma, Hx Bronchitis, Hx Pneumonia, Hx Respiratory Failure Denies: Hx COPD, Hx Sleep Apnea, Hx Tuberculosis Neurological Medical History: Reports: Hx Cerebrovascular Accident - Memory loss , Hx Migraine. Denies: Hx Seizures Endocrine Medical History: Reports: Hx Diabetes Mellitus Type 2, Hx Hypothyroidism. Denies: Hx Graves' Disease, Hx Hyperthyroidism Renal/ Medical History: Reports: Hx Kidney Stones, Hx Pelvic Inflammatory Disease. Denies: Hx End Stage Renal Disease, Hx Ovarian Cysts, Hx Peritoneal Dialysis Malignancy Medical History: Denies: Hx Breast Cancer, Hx Cervical Cancer, Hx Leukemia, Hx Lung Cancer, Hx Ovarian Cancer GI Medical History: Reports: Hx Irritable Bowel, Hx Liver Failure - 2010, Hx Ulcer. Denies: Hx Crohn's Disease, Hx Gastroesophageal Reflux Disease, Hx Hiatal Hernia, Hx Pancreatitis Musculoskeltal Medical History: Reports Hx Arthritis, Denies Hx Fibromyalgia, Denies Hx Multiple Sclerosis, Denies Hx Muscular Dystrophy Psychiatric Medical History: Denies: Hx Bipolar Disorder, Hx Dementia, Hx Depression, Hx Post Traumatic Stress Disorder, Hx Schizophrenia Traumatic Medical History: Reports: Hx Fractures Infectious Medical History: Denies: Hx HIV Past Surgical History: Reports: Hx Cardiac Surgery - stent placed 2006, Hx Section - partial 2008, Hx Gynecologic Surgery - partial hysterectomy, Hx Hysterectomy, Hx Orthopedic Surgery - back, right knee, left ankle. Denies: Hx Appendectomy, Hx Bowel Surgery, Hx Cholecystectomy, Hx Colostomy, Hx Coronary Artery Bypass Graft, Hx Gastric Bypass Surgery, Hx Herniorrhaphy, Hx Mastectomy, Hx Pacemaker, Hx Tonsillectomy, Hx Tubal Ligation - Immunizations Hx Diphtheria, Pertussis, Tetanus Vaccination: No - allergic Review of Systems - Review of Systems Constitutional: denies: Chills, Fever EENT: No symptoms reported Cardiovascular: See HPI, Syncope Respiratory: No symptoms reported Gastrointestinal: No symptoms reported Genitourinary: No symptoms reported Female Genitourinary: No symptoms reported Musculoskeletal: No symptoms reported Skin: No symptoms reported Hematologic/Lymphatic: No symptoms reported Neurological/Psychological: See HPI, Confusion Physical Exam - Vital signs Vitals: Temp Pulse Resp BP Pulse Ox 96.7 F L 50 L 16 100/80 100 03/05/18 16:02 03/05/18 16:02 03/05/18 16:02 03/05/18 16:02 03/05/18 16:02 Notes: Physical exam: GENERAL: 52-year-old female, she is alert and answering questions, she does appear somewhat confused. Her blood pressure is 82/60. Her heart rate is 95. HEAD: Atraumatic, normocephalic. Is no evidence of any type of head impact. EYES: Pupils equal round and reactive to light, extraocular movements intact, sclera anicteric, conjunctiva are normal. ENT: TMs normal, nares patent, oropharynx clear without exudates. Moist mucous membranes. NECK: Normal range of motion, supple without obvious mass or JVD. Patient's cervical spine is nontender. LUNGS: Breath sounds clear to auscultation bilaterally and equal. No wheezes rales or rhonchi. HEART: Regular rate and rhythm without murmurs, rubs or gallops. ABDOMEN: Soft, normoactive bowel sounds. No tenderness to palpation. No guarding, no rebound. No masses appreciated. EXTREMITIES: Normal range of motion, no pitting or edema. No clubbing or cyanosis. NEUROLOGICAL: Cranial nerves II through XII grossly intact. Patient is moving all extremities she does appear weak generalized. She has no focal motor weakness. She denies any sensory loss. Her reflexes are symmetrical. Her finger to nose is grossly okay. PSYCH: Normal mood, normal affect. SKIN: Warm, Dry, normal turgor, no rashes or lesions noted. Course - Re-evaluation Re-evalutation: 03/05/18 22:12 Note: Patient initially presented with a syncopal episode in the setting of suspected medication interaction/drug use. Patient was afebrile and had no symptoms of infection. Workup showed a leukocytosis and an elevated lactate. This began a workup for infection which is so far been fruitless. Head CT was clear. LP was performed and the fluid looks clear to this point. Chest x-ray/ CTA of the chest shows no evidence of infection. The patient's skin is clear. The urine is negative. Blood and urine cultures have been sent along with CSF cultures and antibiotics have been started. It is possible this is still a medicine related encephalopathy, but sepsis without a source is a definite possibility. Patient to be admitted to the hospital. 03/05/18 22:16 Patient does have a magnesium of 1.5 and was given IV mag - Vital Signs Vital signs: Temp Pulse Resp BP Pulse Ox 98.4 F 50 L 13 101/66 94 03/05/18 20:12 03/05/18 16:02 03/05/18 22:00 03/05/18 22:00 03/05/18 22:00 - Laboratory Result Diagrams: 03/05/18 16:49 03/05/18 16:49 Laboratory results interpreted by me: 03/05/18 03/05/18 03/05/18 16:49 16:49 16:49 WBC 18.7 H Hgb 15.6 H Absolute Neutrophils 10.9 H Absolute Lymphocytes 5.7 H Absolute Monocytes 1.5 H APTT 23.0 L Potassium 3.2 L Chloride 97 L Glucose 50 L Lactic Acid Calcium 11.3 H Magnesium Direct Bilirubin 0.5 H AST 55 H ALT 65 H Alkaline Phosphatase 177 H Creatine Kinase 26 L Total Protein 8.6 H Urine Glucose (UA) CSF Glucose CSF Total Protein 03/05/18 03/05/18 03/05/18 16:49 18:05 19:05 WBC Hgb Absolute Neutrophils Absolute Lymphocytes Absolute Monocytes APTT Potassium Chloride Glucose Lactic Acid 4.2 H Calcium Magnesium 1.5 L Direct Bilirubin AST ALT Alkaline Phosphatase Creatine Kinase Total Protein Urine Glucose (UA) >=500 H CSF Glucose CSF Total Protein 03/05/18 19:44 WBC Hgb Absolute Neutrophils Absolute Lymphocytes Absolute Monocytes APTT Potassium Chloride Glucose Lactic Acid Calcium Magnesium Direct Bilirubin AST ALT Alkaline Phosphatase Creatine Kinase Total Protein Urine Glucose (UA) CSF Glucose 201 H CSF Total Protein 65 H - Diagnostic Test Radiology reviewed: Image reviewed, Reports reviewed - CT of the head shows no acute bleed or obvious stroke. Chest x-ray is clear. - EKG Interpretation by Me Rate: Tachycardia Rhythm: NSR - EKG shows sinus tachycardia with a ventricular rate of 103, no acute ST-T wave changes, there is LVH pattern Procedures - Lumbar Puncture Lumbar puncture Time completed: 20:41 Consent obtained: Yes - Verbal consent from ex- Lumbar puncture pre-procedure: Chloraprep applied, Sterile drapes applied Patient position: Sitting Needle size: 18 Lumbar puncture location: L4-L5 Anesthetic type: 1% Lidocaine mL's of anesthetic: 4 Amount/type of drainage: Clear Number of attempts: 2 Complications: No Critical Care Note - Critical Care Note Total time excluding time spent on procedures (mins): 60 Discharge - Discharge Clinical Impression: Encephalopathy, Sepsis Condition: Serious Disposition: ADMITTED INPATIENT Admitting Provider: Garrett Eng is covering Unit Admitted: [facility]
--- NOTE | 2018-03-05 18:20 | EKG REPORT ---
SEVERITY:- ABNORMAL ECG - SINUS TACHYCARDIA BIATRIAL ABNORMALITIES PROBABLE LVH WITH SECONDARY REPOL ABNRM BORDERLINE PROLONGED QT INTERVAL : Confirmed by: Elfego Lugo MD 05-Mar-2018 18:19:12
--- NOTE | 2018-03-05 18:43 | RADIOLOGY REPORT (SQ) ---
EXAM DESCRIPTION: CTA CHEST COMPLETED DATE/TIME: 03/05/2018 6:26 pm REASON FOR STUDY: syncope COMPARISON: None. TECHNIQUE: CT scan of the chest performed using helical scanning technique with dynamic intravenous contrast injection. Images reviewed with lung, soft tissue and bone windows. Reconstructed coronal and sagittal MPR images reviewed. Additional 3 dimensional post-processing performed to develop Maximal Intensity Projection images ([place] P). All images stored on PACS. All CT scanners at this facility use dose modulation, iterative reconstruction, and/or weight based d osing when appropriate to reduce radiation dose to as low as reasonably achievable (ALARA). [facility]: Dose Right [facility]: CareDose [facility]: Dose Right [facility]: Teradose 4D [facility]: [place] CONTRAST TYPE AND DOSE: contrast/concentration: Isovue 370.00 mg/ml; Total Contrast Delivered: 62.0 ml; Total Saline Delivered: 73.7 ml Contrast bolus optimized for the pulmonary arteries. Not diagnostic for the aorta. RENAL FUNCTION: BUN 15 CREATININE 0.86 RADIATION DOSE: CT Rad equipment meets quality standard of care and radiation dose reduction techniq ues were employed. CTDIvol: 5.0 - 24.8 mGy. DLP: 567 mGy-cm. . LIMITATIONS: None. FINDINGS: LUNGS AND PLEURA: No masses, infiltrates, pneumothorax. No pleural effusions, calcificati ons. AORTA AND GREAT VESSELS: No aneurysm. Contrast bolus not optimized for the aorta. HEART: No pericardial effusion. No significant coronary artery calcifications. PULMONARY ARTERIES: No emboli visualized in the main pulmonary arteries or the segmental branches. HILAR AND MEDIASTINAL STRUCTURES: No identified masses or abnormal nodes. HARDWARE: None in the chest. UPPER ABDOMEN: No significant findings. Limited exam. THYROID AND OTHER SOFT TISSUES: Small low-density area in the right lobe of the thyroid. BONES: No acute or significant finding. 3D MIPS: Confirm above findings. OTHER: No other significant finding. IMPRESSION: 1. There is no evidence of pulmonary embolus. 2. There is a small low-density lesion in the right lobe of the thyroid, possibly a cyst. COMMENT: Quality ID # [id number]: Final reports with documentation of one or more dose reduction techniques (e.g., Automated exposure control, adjustment of the mA and/or kV according to patient size, use of iterative reconstruction technique) TECHNICAL DOCUMENTATION: JOB ID: [id number]- All Rights Reserved Reading location - IP/workstation name: [email or web address]
[2018-03-05] MEDS: MAGNESIUM SULFATE/D5W 1 GM/100 ML RTUPB IV SCH ×2 (18:52→20:26)
[2018-03-05 19:31] LABS: APPEARANCE,URINE CLEAR; BILIRUBIN,URINE NEGATIVE (NEGATIVE); COLOR,URINE STRAW; GLUCOSE, URINE >=500 mg/dL (NEGATIVE); KETONES,URINE NEGATIVE (NEGATIVE); LEUKOCYTE ESTERASE,URINE NEGATIVE (NEGATIVE); NITRITE,URINE NEGATIVE (NEGATIVE); PROTEIN,URINE NEGATIVE (NEGATIVE); UROBILINOGEN,URINE NEGATIVE mg/dL (<2.0)
[2018-03-05] MEDS ORDERED: LIDOCAINE 1% INJ-PF (10 MG/ML) 30 ML SDV ONE (19:36)
[2018-03-05] MEDS ORDERED: CEFTRIAXONE 2 GM/D5W RTU 2 GM/50 ML RTUPB IV ONE (19:49)
[2018-03-05 20:01] LABS: URINE AMPHETAMINES SCREEN NEGATIVE; URINE BARBITURATES SCREEN NEGATIVE; URINE BENZODIAZEPINES SCREEN NEGATIVE; URINE COCAINE SCREEN NEGATIVE; URINE MARIJUANA (THC) SCREEN NEGATIVE; URINE METHADONE SCREEN NEGATIVE; URINE PHENCYCLIDINE SCREEN NEGATIVE
[2018-03-05 20:35] LABS: GLUCOSE,CSF 201 mg/dL (40-70); PROTEIN,CSF 65 mg/dL (12-60)
[2018-03-05 20:39] LABS: CSF TUBE NUMBER 1
[2018-03-05 20:40] LABS: APPEARANCE ALL TUBES CLEAR; COLOR ALL TUBES COLORLESS; RED BLOOD CELL,CSF 372 /uL (0-10)
[2018-03-05 20:41] LABS: CSF TUBE NUMBER 4; WHITE BLOOD CELL,CSF 0 /uL (0-5)
[2018-03-05 20:42] LABS: APPEARANCE ALL TUBES CLEAR; COLOR ALL TUBES COLORLESS; RED BLOOD CELL,CSF 0 /uL (0-10); WHITE BLOOD CELL,CSF 1 /uL (0-5)
[2018-03-05] MEDS ORDERED: POTASSI CL 20 MEQ/50 ML RIDER 20 MEQ/50 ML RTUPB IV ONE (20:42)
[2018-03-05] MEDS ORDERED: LEVOFLOXACIN 500 MG/D5W RTU 500 MG/100 ML RTUPB IV ONE (21:06)
[2018-03-06] MEDS ORDERED: ACETAMINOPHEN 325 MG TABLET PO PRN (01:01)
[2018-03-06] MEDS ORDERED: DEXTROSE 40% GEL 15 GM TUBE PO PRN (04:41)
[2018-03-06] MEDS ORDERED: DEXTROSE 50%-WATER SYRINGE 12.5 GM/25 ML DOSE IV PRN (04:41)
[2018-03-06] MEDS ORDERED: GLUCAGON,HUMAN RECOMB 1 MG INJ IM PRN (04:41)
[2018-03-06] MEDS ORDERED: DEXTROSE 40% GEL 15 GM TUBE X 2 PO PRN (04:41)
[2018-03-06] MEDS ORDERED: DEXTROSE 50%-WATER SYRINGE 25 GM/50 ML DOSE IV PRN (04:41)
[2018-03-06] MEDS: LANSOPRAZOLE 30 MG TAB.RAP.DR PO SCH (06:23)
[2018-03-06 06:36] LABS: ABSOLUTE BASOPHILS # (AUTO) 0.1 10^3/uL (0.0-0.2); ABSOLUTE EOSINOPHILS # (AUTO) 0.2 10^3/uL (0.0-0.6); ABSOLUTE LYMPHOCYTES (AUTO) 2.9 10^3/uL (0.5-4.7); ABSOLUTE MONOCYTES (AUTO) 0.5 10^3/uL (0.1-1.4); BASOPHILS % (AUTO) 1.2 % (0-2); EOSINOPHILS % (AUTO) 2.7 % (0-6); HEMATOCRIT 39.4 % (36.0-47.0); HEMOGLOBIN 13.6 g/dL (12.0-15.5); LYMPHOCYTES % (AUTO) 32.8 % (13-45); MEAN CORPUSCULAR HGB CONC 34.5 g/dL (32.0-36.0); MEAN CORPUSCULAR VOLUME 90 fl (80-97); MONOCYTES % (AUTO) 5.9 % (3-13); PLATELET COUNT 236 10^3/uL (150-450); RED CELL DISTRIBUTION WIDTH 13.4 % (11.5-14.0); SEGMENTED NEUTROPHILS % (AUTO) 57.4 % (42-78); TOTAL CELLS COUNTED % (AUTO) 100 %; WHITE BLOOD COUNT 8.7 10^3/uL (4.0-10.5)
[2018-03-06 06:58] LABS: ALANINE AMINOTRANSFERASE 47 U/L (9-52); ALBUMIN 3.1 g/dL (3.5-5.0); ALKALINE PHOSPHATASE 147 U/L (38-126); ANION GAP 11 (5-19); ASPARTATE AMINO TRANSFERASE 40 U/L (14-36); BILIRUBIN,DIRECT 0.4 mg/dL (0.0-0.4); BILIRUBIN,TOTAL 0.4 mg/dL (0.2-1.3); BLOOD UREA NITROGEN 18 mg/dL (7-20); CALCIUM 9.2 mg/dL (8.4-10.2); CARBON DIOXIDE 23 mmol/L (22-30); CHLORIDE 109 mmol/L (98-107); GLUCOSE 121 mg/dL (75-110); SODIUM 142.7 mmol/L (137-145); TOTAL PROTEIN 6.1 g/dL (6.3-8.2)
[2018-03-06] MEDS: ENOXAPARIN SODIUM INJ 40 MG/0.4 ML DISP.SYRIN SUBCUT SCH (08:48)
[2018-03-06] MEDS: NORMAL SALINE 1000 ML 1,000 ML IV PRN (12:21)
[2018-03-06] MEDS: INSULIN LISPRO 100 UNIT/ML 3 ML VIAL SUBCUT PRN ×3 (12:21→22:06)
[2018-03-06] MEDS: CEFTRIAXONE SODIUM 1,000 MG in DEXTROSE 5%-WATER 50 ML IV SCH (17:09)
--- NOTE | 2018-03-06 17:16 | PDOC H&P ---
History of Present Illness Admission Date/PCP: 03/05/18 21:27 DEVAN PUGH-C Patient complains of: Altered mental state History of Present Illness: DEMETRICE MOORE is a 52 year old female who have not seen Dr Tucker for over ten years. She is currently under the care of DEVAN Carreon. She presented to the ED with complain of change in mental status and syncopal episode after use of a topical cream with Lidocaine. She denied any preceding fever, chills, headache, or dizziness. She denied any preceding palpitation or chest pain. She denied any difficulty with her breathing. Patient reported use of topical cream for management of her chronic back pain but her recently dispensed cream contain Lidocaine which is new to her. Her spouse witnessed her fall and denied any head injury or seizure activity. He asserted that she was definitely confused at home. Her initial evaluation in the ED was remarkable for hypothermia, hypotension, tachycardia, tachypenia, and leukocytosis. In view of concern for infectious process she had sepsis workup including chest X ray, CT head, and Lumbar puncture but no identified source of infection. She was advised hospitalization for further evaluation and management. At the time of my bedside assessment she reported recurrent UTI over several months with history of Kidney stones. Her morbidities are extensive and include Coronary Artery Disease, Old [place] s/p stent angioplasty, Hypertension, Hyperlipidemia, Cerebrovascular Accident with Memory loss, Migraine, Diabetes Mellitus Type 2, Hypothyroidism, Irritable Bowel, History Liver Failure - 2010, Peptic Ulcer, chronic back pain and Osteoarthritis Past Medical History Cardiac Medical History: Reports: Coronary Artery Disease, Myocardial Infarction , Hyperlipidema, Hypertension, Pulmonary Embolism - 2006 Denies: Atrial Fibrillation, Congestive Heart Failure, Peripheral Vascular Disease, Heart Murmur Pulmonary Medical History: Reports: Asthma, Bronchitis, Pneumonia, Respiratory Failure Denies: Chronic Obstructive Pulmonary Disease (COPD), Sleep Apnea, Tuberculosis Neurological Medical History: Reports: Migraine Denies: Seizures Endocrine Medical History: Reports: Diabetes Mellitus Type 2, Hypothyroidism Denies: Hyperthyroidism Renal/ Medical History: Denies: End Stage Renal Disease Malignancy Medical History: Denies: Breast Cancer, Cervical Cancer, Leukemia, Lung Cancer, Ovarian Cancer GI Medical History: Denies: Crohn's Disease, Gastroesophageal Reflux Disease, Hiatal Hernia Musculoskeltal Medical History: Reports: Arthritis Denies: Fibromyalgia Psychiatric Medical History: Reports: Depression Denies: Bipolar Disorder, Dementia, Post Traumatic Stress Disorder Hematology: Denies: Anemia, Hemophilia, Sickle Cell Disease Infectious Medical History: Denies: HIV Past Surgical History Past Surgical History: Reports: Section - partial 2009, Hysterectomy, Orthopedic Surgery - back, right knee, left ankle Denies: Amputation, Appendectomy, Cholecystectomy, Colostomy, Coronary Artery Bypass Graft, Gastric Bypass Surgery, Herniorrhaphy, Mastectomy, Pacemaker, Tonsillectomy, Tubal Ligation Social History Information Source: Patient Lives with: Spouse/Significant other Smoking Status: Current Every Day Smoker Cigarettes Packs Per Day: 0.5 Number of Years Smokin Frequency of Alcohol Use: None Hx Recreational Drug Use: No Hx Prescription Drug Abuse: No - Advance Directive Resuscitation Status: Full Code Family History Family History: Reviewed & Not Pertinent Parental Family History Reviewed: Yes Children Family History Reviewed: Yes Sibling(s) Family History Reviewed.: Yes Medication/Allergy Home Medications: Cyclobenzaprine HCl [Flexeril 10 mg Tablet] 10 mg PO Q8 03/06/18 Gabapentin [Neurontin 300 mg Capsule] 600 mg PO Q8 03/06/18 Hum Insulin NPH/Reg Insulin Hm [Novolin 70-30 100 Unit/Ml Vial] 13 unit SQ DAILY 03/06/18 Allergies/Adverse Reactions: aspirin [Aspirin] Allergy (Severe, Verified 03/05/18 15:46) Hives Influenza A (H1N1)Vaccine 2009 * [Influenza A (H1N1)Vaccine 2008] Allergy ( Severe, Verified 03/05/18 15:46) Anaphylaxis Influenza Virus Vaccines [Influenza Virus Vaccine] Allergy (Severe, Verified 15:46) Anaphylaxis Tetanus Vaccines and Toxoid [Tetanus] Allergy (Severe, Verified 03/05/18 15:46) Anaphylaxis latex [Latex] Allergy (Intermediate, Verified 03/05/18 15:46) Hives Penicillins Allergy (Intermediate, Verified 03/05/18 15:46) Nausea miconazole [Miconazole] Allergy (Mild, Verified 03/05/18 15:46) Edema levothyroxine sodium [Levothyroxine Sodium] Allergy (Verified 03/05/18 15:46) swelling Review of Systems Constitutional: ABSENT: chills, fever(s), headache(s), weight gain, weight loss Eyes: ABSENT: visual disturbances Nose, Mouth, and Throat: ABSENT: as per HPI, headache(s), mouth pain, sore throat, vertigo, other Cardiovascular: ABSENT: as per HPI, chest pain, dyspnea on exertion, edema, orthropnea, palpitations, other Respiratory: ABSENT: as per HPI, cough, dyspnea, hemoptysis, sputum, other Gastrointestinal: ABSENT: as per HPI, abdominal pain, bloating, coffee ground emesis, constipation, diarrhea, dysphagia, heartburn, hematemesis, hematochezia , melena, nausea, vomiting, other Musculoskeletal: PRESENT: back pain Integumentary: ABSENT: rash, wounds Neurological: PRESENT: confusion. ABSENT: as per HPI, abnormal gait, abnormal movements, abnormal speech, convulsions, dizziness, focal weakness, frequent falls, lack of coordination, memory loss, numbness, paresthesias, restless legs , syncope, tingling, tremor(s), vertigo, weakness, other Psychiatric: ABSENT: anxiety, depression, homidical ideation, suicidal ideation Endocrine: ABSENT: cold intolerance, heat intolerance, polydipsia, polyuria Hematologic/Lymphatic: ABSENT: easy bleeding, easy bruising, lymphadenopathy Allergic/Immunologic: ABSENT: seasonal rhinorrhea Physical Exam Vital Signs: Temp Pulse Resp BP Pulse Ox 98.0 F 73 16 172/80 H 97 03/06/18 15:34 03/06/18 15:34 03/06/18 15:34 03/06/18 15:34 03/06/18 15:34 Intake & Output 03/05/18 03/06/18 03/07/18 06:59 06:59 06:59 Intake Total 471 591 Output Total 600 100 Balance -129 491 Weight 55.7 kg General appearance: PRESENT: no acute distress, well-developed, well-nourished Head exam: PRESENT: atraumatic, normocephalic Eye exam: PRESENT: conjunctiva pink, EOMI, PERRLA. ABSENT: scleral icterus Ear exam: PRESENT: normal external ear exam Mouth exam: PRESENT: moist, tongue midline Throat exam: ABSENT: post pharyngeal erythema, tonsillar erythema, tonsillar exudate, tonsillogmegaly, other Neck exam: PRESENT: full ROM. ABSENT: carotid bruit, JVD, lymphadenopathy, thyromegaly Respiratory exam: PRESENT: clear to auscultation tobi Cardiovascular exam: PRESENT: RRR. ABSENT: diastolic murmur, rubs, systolic murmur Vascular exam: PRESENT: normal capillary refill. ABSENT: pallor GI/Abdominal exam: PRESENT: normal bowel sounds, soft. ABSENT: distended, guarding, mass, organolmegaly, rebound, tenderness Rectal exam: PRESENT: deferred Extremities exam: ABSENT: pedal edema Musculoskeletal exam: PRESENT: ambulatory Neurological exam: PRESENT: alert, awake, oriented to person, oriented to place , oriented to time, oriented to situation, CN II-XII grossly intact. ABSENT: motor sensory deficit Psychiatric exam: PRESENT: appropriate affect, normal mood. ABSENT: homicidal ideation, suicidal ideation Skin exam: PRESENT: dry, intact, warm. ABSENT: cyanosis, rash Results Laboratory Results: 03/06/18 05:31 03/06/18 05:31 03/06/18 03/06/18 05:31 05:31 WBC 8.7 RBC 4.40 Hgb 13.6 Hct 39.4 MCV 90 MCH 31.0 MCHC 34.5 RDW 13.4 Plt Count 236 Seg Neutrophils % 57.4 Lymphocytes % 32.8 Monocytes % 5.9 Eosinophils % 2.7 Basophils % 1.2 Absolute Neutrophils 5.0 Absolute Lymphocytes 2.9 Absolute Monocytes 0.5 Absolute Eosinophils 0.2 Absolute Basophils 0.1 Sodium 142.7 Potassium 4.0 Chloride 109 H Carbon Dioxide 23 Anion Gap 11 BUN 18 Creatinine 0.48 L Est GFR ( Amer) > 60 Est GFR (Non-Af Amer) > 60 Glucose 121 H Calcium 9.2 Total Bilirubin 0.4 AST 40 H ALT 47 Alkaline Phosphatase 147 H Total Protein 6.1 L Albumin 3.1 L Impressions: Chest X-Ray 03/05/18 16:31 IMPRESSION: NO ACUTE RADIOGRAPHIC FINDING IN THE CHEST. Head CT 03/05/18 16:31 IMPRESSION: NORMAL BRAIN CT WITHOUT CONTRAST. EVIDENCE OF ACUTE STROKE: NO. Chest/Abdomen CTA 03/05/18 17:29 IMPRESSION: 1. There is no evidence of pulmonary embolus. 2. There is a small low-density lesion in the right lobe of the thyroid, possibly a cyst. Assessment & Plan - Diagnosis (1) Systemic inflammatory response syndrome (SIRS) due to infectious process Is this a current diagnosis for this admission?: Yes Plan: See covering admitting attending physician orders. (2) Bacterial sepsis Is this a current diagnosis for this admission?: Yes Plan: See covering admitting attending physician orders. (3) Diabetes mellitus type 2 in obese Is this a current diagnosis for this admission?: Yes Plan: See covering admitting attending physician orders. (4) HTN (hypertension) Qualifiers: Hypertension type: essential hypertension Qualified Code(s): I10 - Essential (primary) hypertension Is this a current diagnosis for this admission?: Yes Plan: See covering admitting attending physician orders. (5) CAD S/P percutaneous coronary angioplasty Is this a current diagnosis for this admission?: Yes Plan: See covering admitting attending physician orders. (6) HLD (hyperlipidemia) Qualifiers: Hyperlipidemia type: pure hypercholesterolemia Qualified Code(s): E78.00 - Pure hypercholesterolemia, unspecified; E78.0 - Pure hypercholesterolemia Is this a current diagnosis for this admission?: Yes Plan: See covering admitting attending physician orders. - Time Time Spent: 50 to 70 Minutes Medications reviewed and adjusted accordingly: Yes Anticipated discharge: Home Within: Other - Inpatient Certification Based on my medical assessment, after consideration of the patient's comorbidities, presenting symptoms, or acuity I expect that the services needed warrant INPATIENT care.: Yes I certify that my determination is in accordance with my understanding of Medicare's requirements for reasonable and necessary INPATIENT services [42 CFR 412.3e].: Yes Medical Necessity: Need Close Monitoring Due to Risk of Patient Decompensation, Need For IV Fluids, Need For Continuous Telemetry Monitoring, Need for IV Antibiotics, Risk of Complication if Not Cared For in Hospital Post Hospital Care: D/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
[2018-03-06 17:49] LABS: CHOLESTEROL 153.95 mg/dL (0-200); TRIGLYCERIDES 196 mg/dL (<150)
[2018-03-06 18:00] LABS: DIRECT LDL 96 mg/dL (<100)
[2018-03-06] MEDS ORDERED: LISINOPRIL 10 MG TABLET PO ONE (18:00)
[2018-03-06] MEDS ORDERED: CEFTRIAXONE 1 GM/D5W RTU 1 GM/50 ML RTUPB IV SCH (18:00)
[2018-03-06 18:25] LABS: VLDL CHOLESTEROL 39.2 mg/dL (10-31)
[2018-03-06] MEDS ORDERED: ENALAPRILAT DIHYDRATE INJ/PF 2.5 MG/2 ML SDV IV ONE (20:30)
[2018-03-06] MEDS: GABAPENTIN 300 MG CAPSULE PO SCH (20:30)
[2018-03-06] MEDS ORDERED: VANCOMYCIN HCL INJ 1000 MG VIAL IV PRN (21:12)
[2018-03-06] MEDS ORDERED: VANCOMYCIN HCL 1,000 MG in DEXTROSE 5%-WATER 250 ML IV ONE (21:15)
[2018-03-06] MEDS ORDERED: LEVOFLOXACIN 750 MG/D5W RTU 750 MG/150 ML RTUPB IV SCH (22:00)
[2018-03-06] MEDS ORDERED: VANCOMYCIN HCL INJ 1000 MG VIAL ONE (22:01)
[2018-03-07] MEDS: LANSOPRAZOLE 30 MG TAB.RAP.DR PO SCH (05:20)
[2018-03-07] MEDS: GABAPENTIN 300 MG CAPSULE PO SCH ×3 (05:21→21:13)
[2018-03-07 06:27] LABS: ABSOLUTE EOSINOPHILS # (AUTO) 0.2 10^3/uL (0.0-0.6); ABSOLUTE LYMPHOCYTES (AUTO) 2.2 10^3/uL (0.5-4.7); ABSOLUTE MONOCYTES (AUTO) 0.4 10^3/uL (0.1-1.4); ABSOLUTE NEUT (AUTO) 2.8 10^3/uL (1.7-8.2); BASOPHILS % (AUTO) 0.8 % (0-2); EOSINOPHILS % (AUTO) 4.2 % (0-6); HEMATOCRIT 38.7 % (36.0-47.0); HEMOGLOBIN 13.3 g/dL (12.0-15.5); MEAN CORPUSCULAR HEMOGLOBIN 30.8 pg (27.0-33.4); MEAN CORPUSCULAR HGB CONC 34.4 g/dL (32.0-36.0); MEAN CORPUSCULAR VOLUME 90 fl (80-97); MONOCYTES % (AUTO) 7.3 % (3-13); PLATELET COUNT 184 10^3/uL (150-450); RED BLOOD COUNT 4.33 10^6/uL (3.72-5.28); SEGMENTED NEUTROPHILS % (AUTO) 48.7 % (42-78); TOTAL CELLS COUNTED % (AUTO) 100 %; WHITE BLOOD COUNT 5.7 10^3/uL (4.0-10.5)
[2018-03-07 07:09] LABS: ALANINE AMINOTRANSFERASE 51 U/L (9-52); ALBUMIN 2.9 g/dL (3.5-5.0); ALKALINE PHOSPHATASE 134 U/L (38-126); ANION GAP 8 (5-19); ASPARTATE AMINO TRANSFERASE 38 U/L (14-36); BILIRUBIN,DIRECT 0.2 mg/dL (0.0-0.4); BILIRUBIN,TOTAL 0.2 mg/dL (0.2-1.3); BLOOD UREA NITROGEN 17 mg/dL (7-20); CALCIUM 8.8 mg/dL (8.4-10.2); CARBON DIOXIDE 24 mmol/L (22-30); CHLORIDE 110 mmol/L (98-107); GLUCOSE 228 mg/dL (75-110); POTASSIUM 3.9 mmol/L (3.6-5.0); SODIUM 142.3 mmol/L (137-145); TOTAL PROTEIN 5.8 g/dL (6.3-8.2)
[2018-03-07] MEDS: INSULIN LISPRO 100 UNIT/ML 3 ML VIAL SUBCUT PRN ×4 (07:45→22:44)
[2018-03-07] MEDS: ENOXAPARIN SODIUM INJ 40 MG/0.4 ML DISP.SYRIN SUBCUT SCH (09:45)
[2018-03-07] MEDS ORDERED: HUM INSULIN NPH/REG INSULIN HM 100 UNIT/1 ML 3 ML SUBCUT SCH (10:00)
[2018-03-07] MEDS ORDERED: LISINOPRIL 10 MG TABLET PO SCH (10:00)
[2018-03-07] MEDS: VANCOMYCIN HCL 1,000 MG in DEXTROSE 5%-WATER 250 ML IV SCH ×2 (13:13→21:14)
[2018-03-07] MEDS: NORMAL SALINE 1000 ML 1,000 ML IV PRN (13:14)
[2018-03-07] MEDS: CEFTRIAXONE SODIUM 1,000 MG in DEXTROSE 5%-WATER 50 ML IV SCH (17:09)
--- NOTE | 2018-03-07 19:35 | PDOC PROGRESS REPORT ---
Subjective Progress Note for:: 03/07/18 Subjective:: No abdominal pain, nausea or vomiting. No fever or chills. No chest pain or difficulty with breathing. Patient reported 3 days of constipation. She denied any recurrent confusional state. Reason For Visit: SEPSIS Physical Exam Vital Signs: Temp Pulse Resp BP Pulse Ox 98.7 F 69 16 128/67 H 100 03/07/18 15:37 03/07/18 15:37 03/07/18 15:37 03/07/18 15:37 03/07/18 15:37 Intake & Output 03/06/18 03/07/18 03/08/18 06:59 06:59 06:59 Intake Total 471 4402 3582 Output Total 600 1900 3000 Balance -129 2502 582 Weight 55.7 kg 58.9 kg General appearance: PRESENT: no acute distress Head exam: PRESENT: atraumatic, normocephalic Eye exam: PRESENT: conjunctiva pink, EOMI, PERRLA. ABSENT: scleral icterus Mouth exam: PRESENT: moist Respiratory exam: PRESENT: clear to auscultation tobi Cardiovascular exam: PRESENT: RRR. ABSENT: diastolic murmur, rubs, systolic murmur Vascular exam: PRESENT: normal capillary refill. ABSENT: pallor GI/Abdominal exam: PRESENT: normal bowel sounds, soft. ABSENT: distended, guarding, mass, organolmegaly, rebound, tenderness Extremities exam: ABSENT: pedal edema Musculoskeletal exam: PRESENT: normal inspection Neurological exam: PRESENT: alert, awake, oriented to person, oriented to place , oriented to time, oriented to situation, CN II-XII grossly intact. ABSENT: motor sensory deficit Psychiatric exam: PRESENT: appropriate affect, normal mood. ABSENT: homicidal ideation, suicidal ideation Skin exam: PRESENT: dry, intact, warm. ABSENT: cyanosis, rash Results Laboratory Results: 03/07/18 05:41 03/07/18 05:41 03/07/18 03/07/18 05:41 05:41 WBC 5.7 RBC 4.33 Hgb 13.3 Hct 38.7 MCV 90 MCH 30.8 MCHC 34.4 RDW 13.0 Plt Count 184 Seg Neutrophils % 48.7 Lymphocytes % 39.0 Monocytes % 7.3 Eosinophils % 4.2 Basophils % 0.8 Absolute Neutrophils 2.8 Absolute Lymphocytes 2.2 Absolute Monocytes 0.4 Absolute Eosinophils 0.2 Absolute Basophils 0.0 Sodium 142.3 Potassium 3.9 Chloride 110 H Carbon Dioxide 24 Anion Gap 8 BUN 17 Creatinine 0.44 L Est GFR ( Amer) > 60 Est GFR (Non-Af Amer) > 60 Glucose 228 H Calcium 8.8 Total Bilirubin 0.2 AST 38 H ALT 51 Alkaline Phosphatase 134 H Total Protein 5.8 L Albumin 2.9 L Impressions: Chest X-Ray 03/05/18 16:31 IMPRESSION: NO ACUTE RADIOGRAPHIC FINDING IN THE CHEST. Head CT 03/05/18 16:31 IMPRESSION: NORMAL BRAIN CT WITHOUT CONTRAST. EVIDENCE OF ACUTE STROKE: NO. Chest/Abdomen CTA 03/05/18 17:29 IMPRESSION: 1. There is no evidence of pulmonary embolus. 2. There is a small low-density lesion in the right lobe of the thyroid, possibly a cyst. Assessment & Plan - Diagnosis (1) Systemic inflammatory response syndrome (SIRS) due to infectious process Is this a current diagnosis for this admission?: Yes (2) Bacterial sepsis Is this a current diagnosis for this admission?: Yes (3) Diabetes mellitus type 2 in obese Is this a current diagnosis for this admission?: Yes (4) HTN (hypertension) Qualifiers: Hypertension type: essential hypertension Qualified Code(s): I10 - Essential (primary) hypertension Is this a current diagnosis for this admission?: Yes (5) CAD S/P percutaneous coronary angioplasty Is this a current diagnosis for this admission?: Yes (6) HLD (hyperlipidemia) Qualifiers: Hyperlipidemia type: pure hypercholesterolemia Qualified Code(s): E78.00 - Pure hypercholesterolemia, unspecified; E78.0 - Pure hypercholesterolemia Is this a current diagnosis for this admission?: Yes (7) Constipation Qualifiers: Constipation type: unspecified constipation type Qualified Code(s): K59.00 - Constipation, unspecified Is this a current diagnosis for this admission?: Yes Plan: See covering attending physician orders. - Time Time Spent with patient: 25-34 minutes Medications reviewed and adjusted accordingly: Yes Anticipated discharge: Home Within: Other - Inpatient Certification Based on my medical assessment, after consideration of the patient's comorbidities, presenting symptoms, or acuity I expect that the services needed warrant INPATIENT care.: Yes I certify that my determination is in accordance with my understanding of Medicare's requirements for reasonable and necessary INPATIENT services [42 CFR 412.3e].: Yes Medical Necessity: Need Close Monitoring Due to Risk of Patient Decompensation, Need For IV Fluids, Need For Continuous Telemetry Monitoring, Need for IV Antibiotics, Risk of Complication if Not Cared For in Hospital Post Hospital 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 Administer Senokot 2 tablets tonight. Increase Lisinopril to 20 mg po daily. Adjust Insulin dosage to reflect her fasting accuchek reading. Patient reported hyperglycemic reading at home on current dosing. Still awaiting patient's medication list for reconciliation. Continue IV Vancomycin and Rocephin coverage Follow up on blood culture findings.
[2018-03-07] MEDS: SIMVASTATIN 10 MG TABLET PO SCH (21:13)
[2018-03-08] MEDS: GABAPENTIN 300 MG CAPSULE PO SCH ×3 (05:30→21:33)
[2018-03-08] MEDS: LANSOPRAZOLE 30 MG TAB.RAP.DR PO SCH (05:30)
[2018-03-08] MEDS: VANCOMYCIN HCL 1,000 MG in DEXTROSE 5%-WATER 250 ML IV SCH ×2 (05:31→15:33)
[2018-03-08] MEDS: ENOXAPARIN SODIUM INJ 40 MG/0.4 ML DISP.SYRIN SUBCUT SCH (09:09)
[2018-03-08] MEDS ORDERED: LISINOPRIL 10 MG TABLET PO SCH (10:00)
[2018-03-08] MEDS ORDERED: HUM INSULIN NPH/REG INSULIN HM 100 UNIT/1 ML 3 ML SUBCUT SCH (10:00)
[2018-03-08] MEDS: INSULIN LISPRO 100 UNIT/ML 3 ML VIAL SUBCUT PRN ×2 (12:46→17:52)
[2018-03-08 14:31] LABS: VANCOMYCIN,TROUGH 10.4 ug/mL (5.0-20.0)
[2018-03-08] MEDS: CEFTRIAXONE SODIUM 1,000 MG in DEXTROSE 5%-WATER 50 ML IV SCH (17:37)
--- NOTE | 2018-03-08 18:20 | PDOC PROGRESS REPORT ---
Subjective Progress Note for:: 03/08/18 Subjective:: No chest pain or difficulty with breathing. No abdominal pain, nausea or vomiting. No fever or chills. Hyperglycemia persist. Still no medication list from spouse as earlier promised to bring to the hospital. Patient reported satisfactory bowel movement. Reason For Visit: SEPSIS Physical Exam Vital Signs: Temp Pulse Resp BP Pulse Ox 98.0 F 68 14 148/79 H 100 03/08/18 15:30 03/08/18 15:30 03/08/18 15:30 03/08/18 15:30 03/08/18 15:30 Intake & Output 03/07/18 03/08/18 03/09/18 06:59 06:59 06:59 Intake Total 4402 6122 814 Output Total 1900 5600 900 Balance 2502 522 -86 Weight 58.9 kg 59.3 kg Physical Exam: General appearance: PRESENT: no acute distress Head exam: PRESENT: atraumatic, normocephalic Eye exam: PRESENT: conjunctiva pink, EOMI, PERRLA. ABSENT: scleral icterus Mouth exam: PRESENT: moist Respiratory exam: PRESENT: clear to auscultation tobi Cardiovascular exam: PRESENT: RRR. ABSENT: diastolic murmur, rubs, systolic murmur Vascular exam: PRESENT: normal capillary refill. ABSENT: pallor GI/Abdominal exam: PRESENT: normal bowel sounds, soft. ABSENT: distended, guarding, mass, organomegaly, rebound, tenderness Extremities exam: ABSENT: pedal edema Musculoskeletal exam: PRESENT: normal inspection Neurological exam: PRESENT: alert, awake, oriented to person, oriented to place , oriented to time, oriented to situation, CN II-XII grossly intact. ABSENT: motor sensory deficit Psychiatric exam: PRESENT: appropriate affect, normal mood. ABSENT: homicidal ideation, suicidal ideation Skin exam: PRESENT: dry, intact, warm. ABSENT: cyanosis, rash Results Laboratory Results: 03/07/18 05:41 03/07/18 05:41 Impressions: Chest X-Ray 03/05/18 16:31 IMPRESSION: NO ACUTE RADIOGRAPHIC FINDING IN THE CHEST. Head CT 03/05/18 16:31 IMPRESSION: NORMAL BRAIN CT WITHOUT CONTRAST. EVIDENCE OF ACUTE STROKE: NO. Chest/Abdomen CTA 03/05/18 17:29 IMPRESSION: 1. There is no evidence of pulmonary embolus. 2. There is a small low-density lesion in the right lobe of the thyroid, possibly a cyst. Assessment & Plan - Diagnosis (1) Systemic inflammatory response syndrome (SIRS) due to infectious process Is this a current diagnosis for this admission?: Yes (2) Bacterial sepsis Is this a current diagnosis for this admission?: Yes (3) Diabetes mellitus type 2 in obese Is this a current diagnosis for this admission?: Yes (4) HTN (hypertension) Qualifiers: Hypertension type: essential hypertension Qualified Code(s): I10 - Essential (primary) hypertension Is this a current diagnosis for this admission?: Yes (5) CAD S/P percutaneous coronary angioplasty Is this a current diagnosis for this admission?: Yes (6) HLD (hyperlipidemia) Qualifiers: Hyperlipidemia type: pure hypercholesterolemia Qualified Code(s): E78.00 - Pure hypercholesterolemia, unspecified; E78.0 - Pure hypercholesterolemia Is this a current diagnosis for this admission?: Yes (7) Constipation Qualifiers: Constipation type: unspecified constipation type Qualified Code(s): K59.00 - Constipation, unspecified Is this a current diagnosis for this admission?: Yes - Time Time Spent with patient: 25-34 minutes Medications reviewed and adjusted accordingly: Yes Anticipated discharge: Home Within: Other - Inpatient Certification Based on my medical assessment, after consideration of the patient's comorbidities, presenting symptoms, or acuity I expect that the services needed warrant INPATIENT care.: Yes I certify that my determination is in accordance with my understanding of Medicare's requirements for reasonable and necessary INPATIENT services [42 CFR 412.3e].: Yes Medical Necessity: Need Close Monitoring Due to Risk of Patient Decompensation, Need For IV Fluids, Need For Continuous Telemetry Monitoring, Need for IV Antibiotics, Risk of Complication if Not Cared For in Hospital Post Hospital Care: 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
[2018-03-08] MEDS ORDERED: HUM INSULIN NPH/REG INSULIN HM 100 UNIT/1 ML 3 ML SUBCUT ONE (19:00)
[2018-03-08] MEDS: VANCOMYCIN HCL 1,500 MG in DEXTROSE 5%-WATER 250 ML IV SCH (21:32)
[2018-03-08] MEDS: SIMVASTATIN 10 MG TABLET PO SCH (21:33)
[2018-03-09] MEDS: NORMAL SALINE 1000 ML 1,000 ML IV PRN (02:06)
[2018-03-09] MEDS: GABAPENTIN 300 MG CAPSULE PO SCH ×3 (05:58→21:34)
[2018-03-09] MEDS: VANCOMYCIN HCL 1,500 MG in DEXTROSE 5%-WATER 250 ML IV SCH ×3 (05:59→21:39)
[2018-03-09] MEDS: LANSOPRAZOLE 30 MG TAB.RAP.DR PO SCH (05:59)
[2018-03-09] MEDS: LISINOPRIL 10 MG TABLET PO SCH (09:45)
[2018-03-09] MEDS: ENOXAPARIN SODIUM INJ 40 MG/0.4 ML DISP.SYRIN SUBCUT SCH (09:45)
[2018-03-09] MEDS ORDERED: HUM INSULIN NPH/REG INSULIN HM 100 UNIT/1 ML 3 ML SUBCUT SCH (10:00)
[2018-03-09] MEDS: CEFTRIAXONE SODIUM 1,000 MG in DEXTROSE 5%-WATER 50 ML IV SCH (18:22)
[2018-03-09] MEDS: INSULIN LISPRO 100 UNIT/ML 3 ML VIAL SUBCUT PRN ×2 (18:22→22:41)
[2018-03-09] MEDS ORDERED: SODIUM CHLORIDE NASAL SPRAY 44 ML NASL PRN (18:53)
--- NOTE | 2018-03-09 19:56 | PDOC PROGRESS REPORT ---
Subjective Progress Note for:: 03/09/18 Subjective:: No chest pain or difficulty with breathing. No abdominal pain, nausea or vomiting. No fever or chills. Fasting hyperglycemia persist. Reason For Visit: SEPSIS Physical Exam Vital Signs: Temp Pulse Resp BP Pulse Ox 98.0 F 68 18 149/72 H 97 03/09/18 15:34 03/09/18 15:34 03/09/18 15:34 03/09/18 15:34 03/09/18 15:34 Intake & Output 03/08/18 03/09/18 03/10/18 06:59 06:59 06:59 Intake Total 6122 4456 2153 Output Total 5600 1400 500 Balance 522 3056 1653 Weight 59.3 kg 58.3 kg Physical Exam: General appearance: PRESENT: no acute distress Head exam: PRESENT: atraumatic, normocephalic Eye exam: PRESENT: conjunctiva pink, EOMI, PERRLA. ABSENT: scleral icterus Mouth exam: PRESENT: moist Respiratory exam: PRESENT: clear to auscultation tobi Cardiovascular exam: PRESENT: RRR. ABSENT: diastolic murmur, rubs, systolic murmur Vascular exam: ABSENT: pallor GI/Abdominal exam: PRESENT: normal bowel sounds, soft. ABSENT: distended, guarding, mass, organomegaly, rebound, tenderness Extremities exam: ABSENT: pedal edema Musculoskeletal exam: PRESENT: normal inspection Neurological exam: PRESENT: alert, awake, oriented to person, oriented to place , oriented to time, oriented to situation, CN II-XII grossly intact. ABSENT: motor sensory deficit Psychiatric exam: PRESENT: appropriate affect, normal mood. ABSENT: homicidal ideation, suicidal ideation Skin exam: PRESENT: dry, intact, warm. ABSENT: cyanosis, rash Results Laboratory Results: 03/07/18 05:41 03/07/18 05:41 Impressions: Chest X-Ray 03/05/18 16:31 IMPRESSION: NO ACUTE RADIOGRAPHIC FINDING IN THE CHEST. Head CT 03/05/18 16:31 IMPRESSION: NORMAL BRAIN CT WITHOUT CONTRAST. EVIDENCE OF ACUTE STROKE: NO. Chest/Abdomen CTA 03/05/18 17:29 IMPRESSION: 1. There is no evidence of pulmonary embolus. 2. There is a small low-density lesion in the right lobe of the thyroid, possibly a cyst. Assessment & Plan - Diagnosis (1) Systemic inflammatory response syndrome (SIRS) due to infectious process Is this a current diagnosis for this admission?: Yes (2) Bacterial sepsis Is this a current diagnosis for this admission?: Yes (3) Diabetes mellitus type 2 in obese Is this a current diagnosis for this admission?: Yes (4) HTN (hypertension) Qualifiers: Hypertension type: essential hypertension Qualified Code(s): I10 - Essential (primary) hypertension Is this a current diagnosis for this admission?: Yes (5) CAD S/P percutaneous coronary angioplasty Is this a current diagnosis for this admission?: Yes (6) HLD (hyperlipidemia) Qualifiers: Hyperlipidemia type: pure hypercholesterolemia Qualified Code(s): E78.00 - Pure hypercholesterolemia, unspecified; E78.0 - Pure hypercholesterolemia Is this a current diagnosis for this admission?: Yes (7) Constipation Qualifiers: Constipation type: unspecified constipation type Qualified Code(s): K59.00 - Constipation, unspecified Is this a current diagnosis for this admission?: Yes - Time Time Spent with patient: 25-34 minutes Medications reviewed and adjusted accordingly: Yes Anticipated discharge: Home Within: Other - Inpatient Certification Based on my medical assessment, after consideration of the patient's comorbidities, presenting symptoms, or acuity I expect that the services needed warrant INPATIENT care.: Yes I certify that my determination is in accordance with my understanding of Medicare's requirements for reasonable and necessary INPATIENT services [42 CFR 412.3e].: Yes Medical Necessity: Need Close Monitoring Due to Risk of Patient Decompensation, Need For IV Fluids, Need For Continuous Telemetry Monitoring, Need for IV Antibiotics, Risk of Complication if Not Cared For in Hospital Post Hospital Care: D/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 Patient will be accepted to my service while on this admission. There was a mutual disengagement with Dr. Tucker in the past.
[2018-03-09] MEDS: SIMVASTATIN 10 MG TABLET PO SCH (21:34)
[2018-03-09] MEDS: QUETIAPINE FUMARATE 25 MG TABLET PO SCH (21:34)
[2018-03-10] MEDS: VANCOMYCIN HCL 1,500 MG in DEXTROSE 5%-WATER 250 ML IV SCH ×2 (05:21→14:03)
[2018-03-10] MEDS: GABAPENTIN 300 MG CAPSULE PO SCH ×3 (05:21→21:24)
[2018-03-10] MEDS: LANSOPRAZOLE 30 MG TAB.RAP.DR PO SCH (05:22)
[2018-03-10] MEDS: INSULIN LISPRO 100 UNIT/ML 3 ML VIAL SUBCUT PRN ×3 (08:39→22:26)
[2018-03-10] MEDS ORDERED: AZELASTINE HCL 205.5 MCG NS SCH (10:00)
[2018-03-10] MEDS: PAROXETINE HCL 20 MG TABLET PO SCH (10:45)
[2018-03-10] MEDS: LISINOPRIL 10 MG TABLET PO SCH (10:45)
[2018-03-10] MEDS: HUM INSULIN NPH/REG INSULIN HM 100 UNIT/1 ML 3 ML SUBCUT SCH (10:48)
[2018-03-10] MEDS: ENOXAPARIN SODIUM INJ 40 MG/0.4 ML DISP.SYRIN SUBCUT SCH (10:48)
[2018-03-10 14:51] LABS: VANCOMYCIN,TROUGH 19.7 ug/mL (5.0-20.0)
[2018-03-10] MEDS: CEFTRIAXONE SODIUM 1,000 MG in DEXTROSE 5%-WATER 50 ML IV SCH (18:32)
--- NOTE | 2018-03-10 18:40 | PDOC PROGRESS REPORT ---
Subjective Progress Note for:: 03/10/18 Subjective:: No chest pain or difficulty with breathing. No abdominal pain, nausea or vomiting. No fever or chills. Fasting hyperglycemia persist. Nursing staff reported that patient is not compliant with dietary restrictions and has been taking food from hospice patient cart on the floor. Reason For Visit: SEPSIS Physical Exam Vital Signs: Temp Pulse Resp BP Pulse Ox 98.1 F 81 16 138/73 H 98 03/10/18 17:05 03/10/18 17:05 03/10/18 17:05 03/10/18 17:05 03/10/18 17:05 Intake & Output 03/09/18 03/10/18 03/11/18 06:59 06:59 06:59 Intake Total 4456 3558 3169 Output Total 1400 500 Balance 3056 3058 3169 Weight 58.3 kg 58.7 kg Physical Exam: General appearance: PRESENT: no acute distress Head exam: PRESENT: atraumatic, normocephalic Eye exam: PRESENT: conjunctiva pink, EOMI, PERRLA. ABSENT: scleral icterus Mouth exam: PRESENT: moist Respiratory exam: PRESENT: clear to auscultation tobi Cardiovascular exam: PRESENT: RRR. ABSENT: diastolic murmur, rubs, systolic murmur Vascular exam: ABSENT: pallor GI/Abdominal exam: PRESENT: normal bowel sounds, soft. ABSENT: distended, guarding, mass, organomegaly, rebound, tenderness Extremities exam: ABSENT: pedal edema Musculoskeletal exam: PRESENT: normal inspection Neurological exam: PRESENT: alert, awake, oriented to person, oriented to place , oriented to time, oriented to situation, CN II-XII grossly intact. ABSENT: motor sensory deficit Psychiatric exam: PRESENT: appropriate affect, normal mood. ABSENT: homicidal ideation, suicidal ideation Skin exam: PRESENT: dry, intact, warm. ABSENT: cyanosis, rash Results Laboratory Results: 03/07/18 05:41 03/10/18 13:33 03/10/18 13:33 Creatinine 0.72 Est GFR ( Amer) > 60 Est GFR (Non-Af Amer) > 60 Impressions: Chest X-Ray 03/05/18 16:31 IMPRESSION: NO ACUTE RADIOGRAPHIC FINDING IN THE CHEST. Head CT 03/05/18 16:31 IMPRESSION: NORMAL BRAIN CT WITHOUT CONTRAST. EVIDENCE OF ACUTE STROKE: NO. Chest/Abdomen CTA 03/05/18 17:29 IMPRESSION: 1. There is no evidence of pulmonary embolus. 2. There is a small low-density lesion in the right lobe of the thyroid, possibly a cyst. Assessment & Plan - Diagnosis (1) Systemic inflammatory response syndrome (SIRS) due to infectious process Is this a current diagnosis for this admission?: Yes Plan: Resolved. (2) Bacterial sepsis Is this a current diagnosis for this admission?: Yes Plan: See attending physician orders. D/C Cefepime and Vancomycin. Blood culture is no growth to date. CSF culture no growth. (3) Diabetes mellitus type 2 in obese Is this a current diagnosis for this admission?: Yes Plan: See attending physician orders. Emphasized compliance with dietary restrictions. (4) HTN (hypertension) Qualifiers: Hypertension type: essential hypertension Qualified Code(s): I10 - Essential (primary) hypertension Is this a current diagnosis for this admission?: Yes Plan: See attending physician orders. (5) CAD S/P percutaneous coronary angioplasty Is this a current diagnosis for this admission?: Yes Plan: See attending physician orders. (6) HLD (hyperlipidemia) Qualifiers: Hyperlipidemia type: pure hypercholesterolemia Qualified Code(s): E78.00 - Pure hypercholesterolemia, unspecified; E78.0 - Pure hypercholesterolemia Is this a current diagnosis for this admission?: Yes Plan: See attending physician orders. (7) Constipation Qualifiers: Constipation type: unspecified constipation type Qualified Code(s): K59.00 - Constipation, unspecified Is this a current diagnosis for this admission?: Yes Plan: Resolved - Time Time Spent with patient: 25-34 minutes Medications reviewed and adjusted accordingly: Yes Anticipated discharge: Home Within: within 24 hours - Inpatient Certification Based on my medical assessment, after consideration of the patient's comorbidities, presenting symptoms, or acuity I expect that the services needed warrant INPATIENT care.: Yes I certify that my determination is in accordance with my understanding of Medicare's requirements for reasonable and necessary INPATIENT services [42 CFR 412.3e].: Yes Medical Necessity: Need Close Monitoring Due to Risk of Patient Decompensation, Need For IV Fluids, Need For Continuous Telemetry Monitoring, Need for IV Antibiotics, Risk of Complication if Not Cared For in Hospital Post Hospital Care: D/C Manager Educational Documentation - Plan Summary Plan Summary: See attending physician orders.
[2018-03-10] MEDS: DOXYCYCLINE HYCLATE 100 MG TABLET PO SCH (21:24)
[2018-03-10] MEDS: SIMVASTATIN 10 MG TABLET PO SCH (21:24)
[2018-03-10] MEDS: QUETIAPINE FUMARATE 25 MG TABLET PO SCH (21:24)
[2018-03-11] MEDS: GABAPENTIN 300 MG CAPSULE PO SCH ×2 (05:41→14:31)
[2018-03-11] MEDS: LANSOPRAZOLE 30 MG TAB.RAP.DR PO SCH (05:42)
[2018-03-11] MEDS: HUM INSULIN NPH/REG INSULIN HM 100 UNIT/1 ML 3 ML SUBCUT SCH (10:50)
[2018-03-11] MEDS: INSULIN LISPRO 100 UNIT/ML 3 ML VIAL SUBCUT PRN ×2 (10:51→16:37)
[2018-03-11] MEDS: ENOXAPARIN SODIUM INJ 40 MG/0.4 ML DISP.SYRIN SUBCUT SCH (10:51)
[2018-03-11] MEDS: LISINOPRIL 10 MG TABLET PO SCH (10:52)
[2018-03-11] MEDS: DOXYCYCLINE HYCLATE 100 MG TABLET PO SCH (10:53)
[2018-03-11] MEDS: PAROXETINE HCL 20 MG TABLET PO SCH (10:53)
--- NOTE | 2018-03-11 19:10 | PDOC DISCHARGE SUMMARY ---
General - Admit/Disc Date/PCP Admission Date/Primary Care Provider: 03/05/18 21:27 MAYO PUGH Discharge Date: 03/11/18 - Discharge Diagnosis (1) Systemic inflammatory response syndrome (SIRS) due to infectious process Is this a current diagnosis for this admission?: Yes Summary: Resolved (2) Other bacterial infections of unspecified site Is this a current diagnosis for this admission?: Yes Summary: Patient will be discharge home on Oral Doxycycline therapy for 5 more days. (3) Diabetes mellitus type 2 in obese Is this a current diagnosis for this admission?: Yes Summary: Improving glycemic control but patient is not compliant with dietary restrictions. She will follow up with her PCP and boardmarker for further evaluation and management (4) HTN (hypertension) Is this a current diagnosis for this admission?: Yes Summary: Continue on current mediation management (5) CAD S/P percutaneous coronary angioplasty Is this a current diagnosis for this admission?: Yes Summary: Continue current mediation management (6) HLD (hyperlipidemia) Is this a current diagnosis for this admission?: Yes Summary: Continue current medication management (7) Constipation Is this a current diagnosis for this admission?: Yes Summary: Continue current mediation management - Additional Information Resuscitation Status: Full Code Prescriptions: Doxycycline Hyclate [Vibramycin 100 mg Tablet] 100 mg PO Q12 #10 tablet Hum Insulin NPH/Reg Insulin Hm [Novolin 70-30 100 Unit/ml Vial] 23 unit SQ DAILY #1 vial Insulin Lispro [Humalog Insulin (Lispro) 100 unit/mL] 0 - 12 unit SUBCUT ACHSP PRN #1 vial PRN Reason: Lisinopril [Prinivil 30 mg Tablet] 30 mg PO DAILY #30 tablet Simvastatin [Zocor 10 mg Tablet] 20 mg PO QHS #30 tablet Home Medications: Cyclobenzaprine HCl [Flexeril 10 mg Tablet] 10 mg PO Q8 03/06/18 Gabapentin [Neurontin 300 mg Capsule] 600 mg PO Q8 03/06/18 Azelastine HCl 205.5 mcg NS BID 03/09/18 Benzonatate 100 mg PO TID PRN 03/09/18 Dicyclomine HCl 20 mg PO QID PRN 03/09/18 Emollient [Cream Base] 454 gm TP Q3 PRN 03/09/18 Fluticasone Propionate [24 Hour Allergy] 50 mcg NS DAILY 03/09/18 Hyoscyamine 0.125 mg PO Q4HP PRN 03/09/18 Ondansetron [Ondansetron Odt] 4 mg PO Q12 PRN 03/09/18 Paroxetine HCl 20 mg PO DAILY 03/09/18 Sodium Chloride [Saline Nasal [place]] 44 ml NS ASDIR PRN 03/09/18 Doxycycline Hyclate [Vibramycin 100 mg Tablet] 100 mg PO Q12 #10 tablet Hum Insulin NPH/Reg Insulin Hm [Novolin 70-30 100 Unit/ml Vial] 23 unit SQ DAILY #1 vial 03/11/18 Insulin Lispro [Humalog Insulin (Lispro) 100 unit/mL] 0 - 12 unit SUBCUT ACHSP PRN #1 vial 03/11/18 Lisinopril [Prinivil 30 mg Tablet] 30 mg PO DAILY #30 tablet 03/11/18 Quetiapine Fumarate 50 mg PO QHS #0 03/11/18 Simvastatin [Zocor 10 mg Tablet] 20 mg PO QHS #30 tablet 03/11/18 History of Present Illness Patient complains of: Chnage in mental status, syncope History of Present Illness: DEMETRICE MOORE is a 52 year old female who have not seen Dr Tucker for over ten years. She is currently under the care of DEVAN Carreon. She presented to the ED with complain of change in mental status and syncopal episode after use of a topical cream with Lidocaine. She denied any preceding fever, chills, headache, or dizziness. She denied any preceding palpitation or chest pain. She denied any difficulty with her breathing. Patient reported use of topical cream for management of her chronic back pain but her recently dispensed cream contain Lidocaine which is new to her. Her spouse witnessed her fall and denied any head injury or seizure activity. He asserted that she was definitely confused at home. Her initial evaluation in the ED was remarkable for hypothermia, hypotension, tachycardia, tachypenia, and leukocytosis. In view of concern for infectious process she had sepsis workup including chest X ray, CT head, and Lumbar puncture but no identified source of infection. She was advised hospitalization for further evaluation and management. At the time of my bedside assessment she reported recurrent UTI over several months with history of Kidney stones. Her morbidities are extensive and include Coronary Artery Disease, [place] s/p stent angioplasty, Hypertension, Hyperlipidemia, Cerebrovascular Accident with Memory loss, Migraine, Diabetes Mellitus Type 2, Hypothyroidism, Irritable Bowel, History Liver Failure - 2011, Peptic Ulcer, chronic back pain and Osteoarthritis Hospital Course Hospital Course: Patient did respond to IV antibiotic therapy and IV fluid infusion. Her associated presenting symptoms and leukocytosis did resolved. Her CSF and blood culture were no growth after appropriate period of incubation. Her blood blood pressure was eventually adequately controlled with adjustment in her Lisinopril dosage. Her hyperglycemia remain oa problem despite increase dose of basal insulin and mostly due to her indiscretion with food selection and quantity. She will follow up with her boardmarker for further management. She will be discharge home today and follow up with her PCP, Niurka HUBER, within 7 days upon discharge. Physical Exam Vital Signs: Temp Pulse Resp BP Pulse Ox 98.1 F 70 16 147/79 H 97 03/11/18 15:00 03/11/18 15:00 03/11/18 15:00 03/11/18 15:00 03/11/18 15:00 Intake & Output 03/10/18 03/11/18 03/12/18 06:59 06:59 06:59 Intake Total 3558 3287 1983 Output Total 500 237 Balance 3058 3050 1983 Weight 58.7 kg 58.6 kg Physical Exam: General appearance: PRESENT: no acute distress Head exam: PRESENT: atraumatic, normocephalic Eye exam: PRESENT: conjunctiva pink, EOMI, PERRLA. ABSENT: scleral icterus Mouth exam: PRESENT: moist Respiratory exam: PRESENT: clear to auscultation tobi Cardiovascular exam: PRESENT: RRR. ABSENT: diastolic murmur, rubs, systolic murmur Vascular exam: ABSENT: pallor GI/Abdominal exam: PRESENT: normal bowel sounds, soft. ABSENT: distended, guarding, mass, organomegaly, rebound, tenderness Extremities exam: ABSENT: pedal edema Musculoskeletal exam: PRESENT: normal inspection Neurological exam: PRESENT: alert, awake, oriented to person, oriented to place , oriented to time, oriented to situation, CN II-XII grossly intact. ABSENT: motor sensory deficit Psychiatric exam: PRESENT: appropriate affect, normal mood. ABSENT: homicidal ideation, suicidal ideation Skin exam: PRESENT: dry, intact, warm. ABSENT: cyanosis, rash Results Laboratory Results: 03/07/18 05:41 03/10/18 13:33 Impressions: Chest X-Ray 03/05/18 16:31 IMPRESSION: NO ACUTE RADIOGRAPHIC FINDING IN THE CHEST. Head CT 03/05/18 16:31 IMPRESSION: NORMAL BRAIN CT WITHOUT CONTRAST. EVIDENCE OF ACUTE STROKE: NO. Chest/Abdomen CTA 03/05/18 17:29 IMPRESSION: 1. There is no evidence of pulmonary embolus. 2. There is a small low-density lesion in the right lobe of the thyroid, possibly a cyst. Qualifiers - * PATIENT BEING DISCHARGED WITH ANY OF THE FOLLOWING DIAGNOSIS: No Plan Discharge Plan: Discharge home today. Follow with PCP, Niurka HUBER, within 7 days as instructed upon discharge. Time Spent: Greater than 30 Minutes - I spent more than 50% on my 40 minutes in her discharge eforts in care coordination and eductaion on morbities, self management regarding diabetes mellitus, dietary restriction compliance and follow up with boardmarker. Patient will follow up with her PCP, Niurka HUBER. She is not Dr Ordonez nor my patient. If she need further admission, she will be admitted to the hospitalist program.
[2018-03-11 19:22] VITALS: BP 128/85
== END 2018-03-11 19:31 | disposition home or self-care (01) | DRG 92 ==
LOC: ER 15:40 → EH 21:27 → 3S 23:00
PROVIDERS: ADMIT Internal Medicine; ATTEND Internal Medicine Geriatric Medicine
PROC: 009U3ZZ Drainage of Spinal Canal, Percutaneous Approach (ICD-10-PCS; principal; 2018-03-05)
DX: G92 Toxic encephalopathy (principal); R65.10 Systemic inflammatory response syndrome (SIRS) of non-infectious origin without acute organ dysfunction; T41.3X5A Adverse effect of local anesthetics, initial encounter; R55 Syncope and collapse; B96.89 Other specified bacterial agents as the cause of diseases classified elsewhere; R07.9 Chest pain, unspecified; E03.9 Hypothyroidism, unspecified; E78.00 Pure hypercholesterolemia, unspecified; E11.65 Type 2 diabetes mellitus with hyperglycemia; I25.10 Atherosclerotic heart disease of native coronary artery without angina pectoris; M54.9 Dorsalgia, unspecified; K59.00 Constipation, unspecified; F17.210 Nicotine dependence, cigarettes, uncomplicated; Y92.89 Other specified places as the place of occurrence of the external cause; I25.2 Old myocardial infarction; Z86.73 Personal history of transient ischemic attack (TIA), and cerebral infarction without residual deficits
CPT/HCPCS: 36415; 51702; 70450; 71045; 71275; 80053; 80061; 80202; 80307; 81001; 82550; 82553; 82565; 82945; 82962; 83605; 83735; 84157; 84484; 85025; 85610; 85730; 87040; 87070; 87205; 89050; 93005; 93010; 96361; 96365; 99291; J0696; J1650; J1815; J1956; J3370; J3475; J3480; J3490; J7030; J7060; J7120

== ENCOUNTER 2018-09-15 20:12 | Emergency (ER) | payer MEDICAID ==
--- NOTE | 2018-09-15 21:46 | RADIOLOGY REPORT (SQ) ---
XR CHEST 1 VIEW HISTORY: Shortness of breath. COMPARISON: 03/05/2018 FINDINGS: The cardiomediastinal silhouette is unremarkable. The lungs are clear. No pleural effusion or pneumothorax is identified. No acute osseous findings are seen. IMPRESSION: No acute cardiopulmonary abnormality.
--- NOTE | 2018-09-15 22:22 | ER Document Report ---
ED General - General Chief Complaint: Respiratory Distress Stated Complaint: SHORTNESS OF BREATH Time Seen by Provider: 09/15/18 22:20 Notes: Patient is a 53-year-old female presents with complaint of runny nose cough congestion. She says she feels like she is in a lot of phlegm stuck in her throat and her airway. She also has some sinus pressure across her forehead. No fevers. No vomiting. No diarrhea. She is a diabetic. She says her sugars have not been well controlled. Does have a history of asthma. She is a smoker. She says she is trying to quit smoking. Denies any chest pain. She says the only time she ever has pain in her chest is when she is coughing forcefully. Otherwise she is chest pain-free. No other complaints at this time. TRAVEL OUTSIDE OF THE [place] IN LAST 30 DAYS: No - Related Data Allergies/Adverse Reactions: aspirin [Aspirin] Allergy (Severe, Verified 09/15/18 20:14) Hives Influenza A (H1N1)Vaccine 2009 * [Influenza A (H1N1)Vaccine 2008] Allergy ( Severe, Verified 09/15/18 20:14) Anaphylaxis Influenza Virus Vaccines [Influenza Virus Vaccine] Allergy (Severe, Verified 02/26 20:14) Anaphylaxis Tetanus Vaccines and Toxoid [Tetanus] Allergy (Severe, Verified 09/15/18 20:14) Anaphylaxis latex [Latex] Allergy (Intermediate, Verified 09/15/18 20:14) Hives levofloxacin [From Levaquin] Allergy (Intermediate, Verified 09/15/18 20:14) Hives Penicillins Allergy (Intermediate, Verified 09/15/18 20:14) Hives miconazole [Miconazole] Allergy (Mild, Verified 09/15/18 20:14) Edema levothyroxine sodium [Levothyroxine Sodium] Allergy (Verified 09/15/18 20:14) swelling lidocaine Allergy (Verified 09/15/18 20:14) Past Medical History - Social History Smoking Status: Current Every Day Smoker Frequency of alcohol use: None Drug Abuse: None Family History: Reviewed & Not Pertinent - Past Medical History Cardiac Medical History: Reports: Hx Coronary Artery Disease, Hx Heart Attack, Hx Hypercholesterolemia, Hx Hypertension, Hx Pulmonary Embolism - 2006 Denies: Hx Atrial Fibrillation, Hx Congestive Heart Failure, Hx Peripheral Vascular Disease, Hx Heart Murmur Pulmonary Medical History: Reports: Hx Asthma, Hx Bronchitis, Hx Pneumonia, Hx Respiratory Failure Denies: Hx COPD, Hx Sleep Apnea, Hx Tuberculosis Neurological Medical History: Reports: Hx Cerebrovascular Accident - Memory loss , Hx Migraine. Denies: Hx Seizures Endocrine Medical History: Reports: Hx Diabetes Mellitus Type 2, Hx Hypothyroidism. Denies: Hx Graves' Disease, Hx Hyperthyroidism Renal/ Medical History: Reports: Hx Kidney Stones, Hx Pelvic Inflammatory Disease. Denies: Hx End Stage Renal Disease, Hx Ovarian Cysts, Hx Peritoneal Dialysis Malignancy Medical History: Denies: Hx Breast Cancer, Hx Cervical Cancer, Hx Leukemia, Hx Lung Cancer, Hx Ovarian Cancer GI Medical History: Reports: Hx Irritable Bowel, Hx Liver Failure - 2010, Hx Ulcer. Denies: Hx Crohn's Disease, Hx Gastroesophageal Reflux Disease, Hx Hiatal Hernia, Hx Pancreatitis Musculoskeletal Medical History: Reports Hx Arthritis, Denies Hx Fibromyalgia, Denies Hx Multiple Sclerosis, Denies Hx Muscular Dystrophy Psychiatric Medical History: Reports: Hx Depression Denies: Hx Bipolar Disorder, Hx Dementia, Hx Post Traumatic Stress Disorder, Hx Schizophrenia Traumatic Medical History: Reports: Hx Fractures Infectious Medical History: Denies: Hx HIV Past Surgical History: Reports: Hx Cardiac Surgery - stent placed 2006, Hx Section - partial 2008, Hx Gynecologic Surgery - partial hysterectomy, Hx Hysterectomy, Hx Orthopedic Surgery - back, right knee, left ankle. Denies: Hx Appendectomy, Hx Bowel Surgery, Hx Cholecystectomy, Hx Colostomy, Hx Coronary Artery Bypass Graft, Hx Gastric Bypass Surgery, Hx Herniorrhaphy, Hx Mastectomy, Hx Pacemaker, Hx Tonsillectomy, Hx Tubal Ligation - Immunizations Hx Diphtheria, Pertussis, Tetanus Vaccination: No - allergic Review of Systems - Review of Systems Notes: My Normal Review Basic REVIEW OF SYSTEMS: CONSTITUTIONAL : Denies fever, chills, or sweats. Denies recent illness. EENT: Denies eye, ear, throat, or mouth pain or symptoms. Denies nasal or sinus congestion. CARDIOVASCULAR: Denies chest pain. RESPIRATORY: Cough GASTROINTESTINAL: Denies abdominal pain. Denies nausea, vomiting, or diarrhea. GENITOURINARY: Denies difficulty urinating, painful urination, burning, frequency, or blood in urine. MUSCULOSKELETAL: Denies neck or back pain or joint pain or swelling. SKIN: Denies rash or skin lesions. NEUROLOGICAL: Denies altered mental status or loss of consciousness. Has a frontal headache. Denies weakness or paralysis or loss of use of either side. Denies problems with gait or speech. Denies sensory or motor loss. ALL OTHER SYSTEMS REVIEWED AND NEGATIVE. Physical Exam - Vital signs Vitals: Temp Pulse Resp BP Pulse Ox 98.6 F 95 24 H 141/93 H 97 09/15/18 20:37 09/15/18 20:37 09/15/18 20:37 09/15/18 20:37 09/15/18 20:37 - Notes Notes: General Appearance: Well nourished, alert, cooperative, no acute distress, no obvious discomfort. Well-appearing. Audible nasal congestion on exam. Vitals: reviewed, See vital signs table. Head: no swelling or tenderness to the head Eyes: PERRL, EOMI, Conjuctiva clear Mouth: No decreasd moisture Throat: No tonsillar inflammation, No airway obstruction, No lymphadenopathy Neck: Supple, no neck tenderness, No thyromegaly Lungs: No wheezing, No rales, few scattered rhonchorous breath sounds., No accessory muscle use, good air exchange bilaterally. Heart: Normal rate, Regular rythm, No murmur, no rub Abdomen: Normal BS, soft, No rigidity, No abdominal tenderness, No guarding, no rebound, Extremities: good pulses in all extremities, no swelling or tenderness in the extremities, no edema. Skin: warm, dry, appropriate color, no rash Neuro: speech clear, oriented x 3, normal affect, responds appropriately to questions. Course - Re-evaluation Re-evalutation: 09/16/18 02:21 Patient has what appears to be sinusitis and upper extremity infection. She has a large amount of congestion on exam. She has a pressure over her sinuses. She had a just a few rhonchorous breath sounds which cleared with the breathing treatment. She otherwise had hyperglycemia. She says her sugars not well controlled and she has seen endocrinology about this. I did give her some insulin here and her blood sugars trend down trending appropriately. Patient later became very emotionally upset and apparently this was after she spoke with her sister on the phone. She says that her sister tries to control her. She said she is otherwise fine and has no further concerns at this time. We will place patient on doxycycline.we will have her follow-up closely with her primary care doctor. I encouraged her return to ER anytime if she has difficulty breathing, fevers, recurrent high blood sugars not responding to her insulin, or if she has any further concerns. Patient agrees with plan and she will be discharged home. EKG did have some changes that she has some T wave inversions in the anterolateral precordial leads. I think this is more related to left ventricular hypertrophy and that she has very large R wave. I did repeat her EKG. Is negative. The only chest pain she ever has this when she is coughing forcefully. Otherwise she has no chest pain. Her troponin is negative. I do not feel that she is having any acute cardiac ischemia. Dictation of this chart was performed using voice recognition software; therefore, there may be some unintended grammatical errors. - Vital Signs Vital signs: Temp Pulse Resp BP Pulse Ox 98.0 F 80 22 H 134/84 H 98 09/15/18 22:17 09/15/18 22:17 09/16/18 01:01 09/16/18 01:00 09/16/18 01:01 - Laboratory Result Diagrams: 09/15/18 21:05 09/15/18 21:05 Laboratory results interpreted by me: 09/15/18 09/15/18 21:05 21:05 Hgb 16.1 H Sodium 136.0 L Chloride 95 L Glucose 551 H* Calcium 10.4 H Alkaline Phosphatase 136 H Creatine Kinase 25 L - EKG Interpretation by Me Additional EKG results interpreted by me: 09/15/18 22:21 EKG is reviewed and interpreted by me. EKG shows sinus rhythm with a rate of [address] segment elevation. While ST segment depression in lateral precordial leads. T wave inversion in leads V3 and V4. He does have large R waves making this is likely to be related to LVH. Old EKG for comparison is from March 05, 2018. MI interval, QRS duration, QT intervals are within normal range. 09/16/18 00:18 EKG #2 was reviewed and interpreted by me. EKG shows sinus rhythm with a rate of [address] segment elevation. Very mild ST segment depression in the lateral precordial leads. T wave inversions again in leads V3 and V4 with large R waves consistent with LVH. Discharge - Discharge Clinical Impression: Hyperglycemia Sinusitis Qualifiers: Sinusitis location: unspecified location Chronicity: subacute Qualified Code(s) : J01.90 - Acute sinusitis, unspecified URI (upper respiratory infection) Qualifiers: URI type: unspecified URI Qualified Code(s): J06.9 - Acute upper respiratory infection, unspecified Condition: Good Disposition: HOME, SELF-CARE Additional Instructions: Please take the antibiotics as prescribed. please keep a close eye on your blood sugar and take your insulin as prescribed. Please return to the ER immediately if you develop fevers, blood sugars over 500, vomiting, difficulty breathing, chest pain occurring without coughing, or feel that you are worsening in any way. Doxycycline will make your skin more sensitive to the sun so please make sure you keep your skin covered or wear sunscreen whenever out in the sun. Prescriptions: Doxycycline Hyclate 100 mg PO BID #14 capsule Referrals: PAUL KUMAR FNP-C [COMMUNITY BASED STAFF] - 09/17/18
[2018-09-15 22:28] LABS: ABSOLUTE BASOPHILS # (AUTO) 0.1 10^3/uL (0.0-0.2); ABSOLUTE EOSINOPHILS # (AUTO) 0.2 10^3/uL (0.0-0.6); ABSOLUTE LYMPHOCYTES (AUTO) 2.9 10^3/uL (0.5-4.7); ABSOLUTE MONOCYTES (AUTO) 0.6 10^3/uL (0.1-1.4); ABSOLUTE NEUT (AUTO) 4.8 10^3/uL (1.7-8.2); BASOPHILS % (AUTO) 0.9 % (0-2); EOSINOPHILS % (AUTO) 2.6 % (0-6); HEMATOCRIT 46.1 % (36.0-47.0); HEMOGLOBIN 16.1 g/dL (12.0-15.5); LYMPHOCYTES % (AUTO) 33.4 % (13-45); MEAN CORPUSCULAR HEMOGLOBIN 31.2 pg (27.0-33.4); MEAN CORPUSCULAR HGB CONC 34.9 g/dL (32.0-36.0); MEAN CORPUSCULAR VOLUME 90 fl (80-97); MONOCYTES % (AUTO) 7.1 % (3-13); PLATELET COUNT 243 10^3/uL (150-450); RED BLOOD COUNT 5.16 10^6/uL (3.72-5.28); RED CELL DISTRIBUTION WIDTH 13.4 % (11.5-14.0); TOTAL CELLS COUNTED % (AUTO) 100 %; WHITE BLOOD COUNT 8.7 10^3/uL (4.0-10.5)
[2018-09-15] MEDS ORDERED: ALBUTEROL SULFATE 0.083% NEB 2.5 MG/3 ML AMPUL NEB ONE (22:30)
[2018-09-15 22:36] LABS: ALANINE AMINOTRANSFERASE 37 U/L (9-52); ALBUMIN 4.4 g/dL (3.5-5.0); ALKALINE PHOSPHATASE 136 U/L (38-126); ANION GAP 15 (5-19); ASPARTATE AMINO TRANSFERASE 25 U/L (14-36); BILIRUBIN,DIRECT 0.2 mg/dL (0.0-0.4); BILIRUBIN,TOTAL 0.4 mg/dL (0.2-1.3); BLOOD UREA NITROGEN 8 mg/dL (7-20); CALCIUM 10.4 mg/dL (8.4-10.2); CARBON DIOXIDE 26 mmol/L (22-30); CHLORIDE 95 mmol/L (98-107); CREATINE KINASE 25 U/L (30-135); POTASSIUM 3.9 mmol/L (3.6-5.0); TOTAL PROTEIN 7.8 g/dL (6.3-8.2)
[2018-09-15 22:48] LABS: CREATINE KINASE MB 0.95 ng/mL (<4.55); TROPONIN I 0.019 ng/mL
[2018-09-15 22:51] LABS: GLUCOSE 551 mg/dL (75-110)
[2018-09-15] MEDS ORDERED: INSULIN REG, HUMAN 100 UNIT/ML 3 ML VIAL (PYX) SUBCUT ONE (23:45)
[2018-09-16] MEDS ORDERED: ACETAMINOPHEN 325 MG TABLET PO ONE (00:59)
[2018-09-16] MEDS ORDERED: DOXYCYCLINE HYCLATE 100 MG TABLET PO ONE (02:15)
[2018-09-16 03:09] VITALS: BP 144/87
--- NOTE | 2018-09-16 09:27 | EKG REPORT ---
SEVERITY:- ABNORMAL ECG - SINUS RHYTHM PROBABLE LEFT VENTRICULAR HYPERTROPHY BORDERLINE T ABNORMALITIES : Confirmed by: Darien Diggs 16-Sep-2018 09:26:51
--- NOTE | 2018-09-16 09:27 | EKG REPORT ---
SEVERITY:- ABNORMAL ECG - SINUS RHYTHM PROBABLE LEFT VENTRICULAR HYPERTROPHY : Confirmed by: Darien Diggs 16-Sep-2018 09:27:05
== END 2018-09-16 03:18 | disposition home or self-care (01) ==
LOC: ER 20:12
DX: J01.90 Acute sinusitis, unspecified (principal); E11.65 Type 2 diabetes mellitus with hyperglycemia; R09.89 Other specified symptoms and signs involving the circulatory and respiratory systems; R05 Cough; R09.81 Nasal congestion; R07.89 Other chest pain; F17.200 Nicotine dependence, unspecified, uncomplicated; J45.909 Unspecified asthma, uncomplicated; I25.10 Atherosclerotic heart disease of native coronary artery without angina pectoris; I10 Essential (primary) hypertension; Z91.040 Latex allergy status; Z88.6 Allergy status to analgesic agent; Z88.7 Allergy status to serum and vaccine; Z88.1 Allergy status to other antibiotic agents; Z88.0 Allergy status to penicillin; Z88.4 Allergy status to anesthetic agent; Z88.3 Allergy status to other anti-infective agents; Z87.01 Personal history of pneumonia (recurrent); Z95.5 Presence of coronary angioplasty implant and graft
CPT/HCPCS: 93005; 94640; 99285; 36415; 82553; 82962; 82550; 85025; 80053; 84484; 83880; 71045; 93010; J3490 ×2; J1815

== ENCOUNTER 2020-06-06 15:54 | Emergency (ER) | payer SELFPAY ==
--- NOTE | 2020-06-06 16:44 | RADIOLOGY REPORT (SQ) ---
EXAM DESCRIPTION: CT HEAD WITHOUT IMAGES COMPLETED DATE/TIME: 06/06/2020 4:36 pm REASON FOR STUDY: near syncope event, may have hit her head COMPARISON: None. TECHNIQUE: Axial images acquired through the brain without intravenous contrast. Images reviewed wi th bone, brain and subdural windows. Additional sagittal and coronal reconstructions were generated. Images stored on PACS. All CT scanners at this facility use dose modulation, iterative reconstruction, and/or weight based d osing when appropriate to reduce radiation dose to as low as reasonably achievable (ALARA). [facility]: Dose Right [facility]: CareDose [facility]: Dose Right [facility]: Teradose 4D [facility]: Cura TV RADIATION DOSE: CT Rad equipment meets quality standard of care and radiation dose reduction techniq ues were employed. CTDIvol: 53.2 mGy. DLP: 991 mGy-cm. mGy. LIMITATIONS: None. FINDINGS: VENTRICLES: Normal size and contour. CEREBRUM: No masses. No hemorrhage. No midline shift. No evidence for acute infarction. Normal gra y/white matter differentiation. No areas of low density in the white matter. CEREBELLUM: No masses. No hemorrhage. No alteration of density. No evidence for acute infarction. EXTRAAXIAL SPACES: No fluid collections. No masses. ORBITS AND GLOBE: No intra- or extraconal masses. Normal contour of globe without masses. CALVARIUM: No fracture. PARANASAL SINUSES: No fluid or mucosal thickening. SOFT TISSUES: No mass or hematoma. OTHER: No other significant finding. IMPRESSION: NORMAL BRAIN CT WITHOUT CONTRAST. EVIDENCE OF ACUTE STROKE: NO. COMMENT: Quality ID # [id number]: Final reports with documentation of one or more dose reduction techniques (e.g., Automated exposure control, adjustment of the mA and/or kV according to patient size, use of iterative reconstruction technique) TECHNICAL DOCUMENTATION: JOB ID: [id number] 2010 [employer]- All Rights Reserved Reading location - IP/workstation name: UNDERGROUND [email or web address]
[2020-06-06 17:01] LABS: ABSOLUTE BASOPHILS # (AUTO) 0.1 10^3/uL (0.0-0.2); ABSOLUTE EOSINOPHILS # (AUTO) 0.5 10^3/uL (0.0-0.6); ABSOLUTE LYMPHOCYTES (AUTO) 6.5 10^3/uL (0.5-4.7); ABSOLUTE MONOCYTES (AUTO) 1.2 10^3/uL (0.1-1.4); ABSOLUTE NEUT (AUTO) 7.3 10^3/uL (1.7-8.2); BASOPHILS % (AUTO) 0.5 % (0-2); EOSINOPHILS % (AUTO) 3.1 % (0-6); HEMATOCRIT 40.9 % (36.0-47.0); HEMOGLOBIN 14.2 g/dL (12.0-15.5); LYMPHOCYTES % (AUTO) 41.9 % (13-45); MEAN CORPUSCULAR HEMOGLOBIN 30.2 pg (27.0-33.4); MEAN CORPUSCULAR HGB CONC 34.7 g/dL (32.0-36.0); MEAN CORPUSCULAR VOLUME 87 fl (80-97); MONOCYTES % (AUTO) 7.5 % (3-13); PLATELET COUNT 228 10^3/uL (150-450); TOTAL CELLS COUNTED % (AUTO) 100 %; WHITE BLOOD COUNT 15.5 10^3/uL (4.0-10.5)
[2020-06-06 17:05] LABS: INTERNATIONAL RATION (INR) 1.01; PROTHROMBIN TIME 13.5 SEC (11.4-15.4)
[2020-06-06 17:06] LABS: PARTIAL THROMBOPLASTIN TIME 24.5 SEC (23.5-35.8)
[2020-06-06 17:14] LABS: ALKALINE PHOSPHATASE 83 U/L (38-126); ANION GAP 9 (5-19); ASPARTATE AMINO TRANSFERASE 19 U/L (14-36); BILIRUBIN,DIRECT 0.4 mg/dL (0.0-0.4); BILIRUBIN,TOTAL 0.9 mg/dL (0.2-1.3); BLOOD UREA NITROGEN 18 mg/dL (7-20); CARBON DIOXIDE 28 mmol/L (22-30); CHLORIDE 100 mmol/L (98-107); TOTAL PROTEIN 6.6 g/dL (6.3-8.2)
[2020-06-06 17:26] LABS: ALCOHOL < 10 mg/dL (NONE DETECTED)
[2020-06-06 17:29] LABS: GLUCOSE 45 mg/dL (75-110); POTASSIUM 2.9 mmol/L (3.6-5.0)
[2020-06-06] MEDS ORDERED: DEXTROSE 50%-WATER 25 GM/50 ML DISP.SYRIN IV ONE (17:34)
[2020-06-06] MEDS ORDERED: MAGNESIUM SULFATE/D5W 1 GM/100 ML RTUPB IV ONE (17:36)
[2020-06-06] MEDS ORDERED: NORMAL SALINE 1000 ML 1,000 ML IV ONE (17:36)
[2020-06-06] MEDS ORDERED: POTASSIUM CHLORIDE 20 MEQ PACKET PO ONE (17:37)
[2020-06-06] MEDS ORDERED: POTASSI CL 20 MEQ/50 ML RIDER 20 MEQ/50 ML RTUPB IV ONE (17:37)
--- NOTE | 2020-06-06 17:41 | RADIOLOGY REPORT (SQ) ---
EXAM DESCRIPTION: CHEST SINGLE VIEW IMAGES COMPLETED DATE/TIME: 06/06/2020 5:28 pm REASON FOR STUDY: ams COMPARISON: 09/15/2018 EXAM PARAMETERS: NUMBER OF VIEWS: One view. TECHNIQUE: Single frontal radiographic view of the chest acquired. RADIATION DOSE: NA LIMITATIONS: None. FINDINGS: LUNGS AND PLEURA: No opacities, masses or pneumothorax. No pleural effusion. MEDIASTINUM AND HILAR STRUCTURES: No masses. Contour normal. HEART AND VASCULAR STRUCTURES: Heart normal in size. Normal vasculature. BONES: No acute findings. HARDWARE: None in the chest. OTHER: No other significant finding. IMPRESSION: NO ACUTE RADIOGRAPHIC FINDING IN THE CHEST. TECHNICAL DOCUMENTATION: JOB ID: [id number] 2010 [employer]- All Rights Reserved Reading location - IP/workstation name: [email or web address]
--- NOTE | 2020-06-06 18:19 | ER Document Report ---
ED General - General TRAVEL OUTSIDE OF THE [place].S. IN LAST 30 DAYS: No <CARROLL HARO E - Last Filed: 06/06/20 19:04> <STANISLAV AMADOR P - Last Filed: 06/07/20 00:08> - General Chief Complaint: Near Syncope Stated Complaint: SYNCOPE Time Seen by Provider: 06/06/20 16:24 Primary Care Provider: SHARI LAMAS PA-C [Primary Care Provider] - Follow up as needed - [facility] Notes: Chief complaint: Syncope History of present illness: This is a 54-year-old female with a history of poorly controlled diabetes mellitus, hypertension, hyperlipidemia and CAD with past stent placement currently followed by primary care practitioner in [facility] who now presents by EMS after having a momentary syncopal episode at home. Patient says her legs "just got weak" and she crumpled to the floor and thinks she may have passed out momentarily. EMS thought she had mildly slurred speech and transported her here without any other intervention. Upon arrival here patient denies any focal neurologic symptoms. She denies use of drugs or alcohol. She denies any chest pain or shortness of breath. She denies nausea vomiting. (CARROLL HARO) - Related Data Allergies/Adverse Reactions: aspirin [Aspirin] Allergy (Severe, Verified 09/15/18 20:14) Hives Influenza A (H1N1)Vaccine 2009 * [Influenza A (H1N1)Vaccine 2008] Allergy (Severe, Verified 09/15/18 20:14) Anaphylaxis Influenza Virus Vaccines [Influenza Virus Vaccine] Allergy (Severe, Verified 09/15/18 20:14) Anaphylaxis Tetanus Vaccines and Toxoid [Tetanus] Allergy (Severe, Verified 09/15/18 20:14) Anaphylaxis latex [Latex] Allergy (Intermediate, Verified 09/15/18 20:14) Hives levofloxacin [From Levaquin] Allergy (Intermediate, Verified 09/15/18 20:14) Hives Penicillins Allergy (Intermediate, Verified 09/15/18 20:14) Hives miconazole [Miconazole] Allergy (Mild, Verified 09/15/18 20:14) Edema levothyroxine sodium [Levothyroxine Sodium] Allergy (Verified 09/15/18 20:14) swelling lidocaine Allergy (Verified 09/15/18 20:14) Past Medical History - General Information source: Patient, [facility] Records - Social History Smoking Status: Current Every Day Smoker Chew tobacco use (# tins/day): No Frequency of alcohol use: None Drug Abuse: None Family History: Reviewed & Not Pertinent Patient has homicidal ideation: No - Past Medical History Cardiac Medical History: Reports: Hx Coronary Artery Disease, Hx Heart Attack, Hx Hypercholesterolemia, Hx Hypertension, Hx Pulmonary Embolism - 2006 Denies: Hx Atrial Fibrillation, Hx Congestive Heart Failure, Hx Peripheral Vascular Disease, Hx Heart Murmur Pulmonary Medical History: Reports: Hx Asthma, Hx Bronchitis, Hx Pneumonia, Hx Respiratory Failure Denies: Hx COPD, Hx Sleep Apnea, Hx Tuberculosis Neurological Medical History: Reports: Hx Cerebrovascular Accident - Memory loss, Hx Migraine. Denies: Hx Seizures, Hx Parkinson's Disease Endocrine Medical History: Reports: Hx Diabetes Mellitus Type 2, Hx Hypothyroidism. Denies: Hx Graves' Disease, Hx Hyperthyroidism Renal/ Medical History: Reports: Hx Kidney Stones, Hx Pelvic Inflammatory Disease. Denies: Hx End Stage Renal Disease, Hx Ovarian Cysts, Hx Peritoneal Dialysis Malignancy Medical History: Denies: Hx Breast Cancer, Hx Cervical Cancer, Hx Leukemia, Hx Lung Cancer, Hx Ovarian Cancer GI Medical History: Reports: Hx Irritable Bowel, Hx Liver Failure - 2010, Hx Ulcer. Denies: Hx Crohn's Disease, Hx Gastroesophageal Reflux Disease, Hx Hiatal Hernia, Hx Pancreatitis Musculoskeletal Medical History: Reports Hx Arthritis, Denies Hx Fibromyalgia, Denies Hx Multiple Sclerosis, Denies Hx Muscular Dystrophy, Denies Hx Systemic Lupus Erythematosus Psychiatric Medical History: Reports: Hx Depression Denies: Hx Bipolar Disorder, Hx Dementia, Hx Post Traumatic Stress Disorder, Hx Schizophrenia Traumatic Medical History: Reports: Hx Fractures Infectious Medical History: Denies: Hx HIV Past Surgical History: Reports: Hx Cardiac Surgery - stent placed 2006, Hx Section - partial 2008, Hx Gynecologic Surgery - partial hysterectomy, Hx Hysterectomy, Hx Orthopedic Surgery - back, right knee, left ankle. Denies: Hx Appendectomy, Hx Bowel Surgery, Hx Cholecystectomy, Hx Colostomy, Hx Coronary Artery Bypass Graft, Hx Gastric Bypass Surgery, Hx Herniorrhaphy, Hx Mastectomy, Hx Pacemaker, Hx Tonsillectomy, Hx Tubal Ligation - Immunizations Hx Diphtheria, Pertussis, Tetanus Vaccination: No - allergic <CARROLL HARO E - Last Filed: 06/06/20 19:04> Review of Systems <CARROLL HARO E - Last Filed: 06/06/20 19:04> - Review of Systems Notes: Constitutional: Negative for fever. HENT: Negative for sore throat. Eyes: Negative for visual changes. Cardiovascular: Negative for chest pain. Respiratory: Negative for shortness of breath. Gastrointestinal: Negative for abdominal pain, vomiting or diarrhea. Genitourinary: Negative for dysuria. Musculoskeletal: Generalized muscular weakness. Skin: Negative for rash. Neurological: As per HPI. 10 point ROS negative except as marked above and in HPI. (CARROLL HARO) Physical Exam <CARROLL HARO - Last Filed: 06/06/20 19:04> - Vital signs Vitals: Temp 97.8 F 06/06/20 15:54 - Notes Notes: GENERAL: Frail somewhat chronically ill-appearing female approximately stated age noted to have mildly slurred speech which she says is her baseline. SKIN: Mildly diminished turgor no rashes. HEAD: Normocephalic atraumatic. EYES: PERRLA. EOMI. Conjunctivae and sclerae clear. EARS: CANALS AND TMS CLEAR. NOSE: CLEAR. MOUTH: Tacky oral mucosa. Edentulous. Mild chelitis present no stridor or edema. No drooling. NECK: Supple. No masses or thyromegaly. No adenopathy. Carotids 2+ without bruits. No JVD. BACK: Symmetrical without tenderness. CHEST: Respirations unlabored. Breath sounds clear and symmetrical. HEART: Regular rhythm. No murmur gallop or rub. ABDOMEN: Soft nontender without masses, organomegaly or rebound. Bowel sounds normally active. No bruits. GENITALIA: Normal female. EXTREMITIES: No edema. No calf tenderness. Cap refill less than 1.5 seconds. Dorsalis pedis and posterior tibial pulses 3+ and symmetrical. NEUROLOGICAL: GCS 15. Alert and oriented x3. Mildly slurred speech. Cranial nerves II through XII intact. Sensorimotor and cerebellar normal. Normal tone. PSYCHIATRIC: Flat affect. (CARROLL HARO) Course - Laboratory Result Diagrams: 06/06/20 16:10 06/06/20 16:10 <CARROLL HARO - Last Filed: 06/06/20 19:04> - Laboratory Result Diagrams: 06/06/20 16:10 06/06/20 16:10 - Diagnostic Test Radiology reviewed: Reports reviewed - EKG Interpretation by Me EKG shows normal: Sinus rhythm Rate: Normal Rhythm: NSR - NSR NL [place] [address] elevation or depression my interpretation. <STANISLAV AMADOR - Last Filed: 06/07/20 00:08> - Re-evaluation Re-evalutation: 06/06/20 19:04 Urinalysis remarkable for glycosuria. Urine drug screen is negative. Blood alcohol is less than 10. Negative head CT. Patient's potassium and magnesium are both low. We are giving her some IV hydration and replacement of potassium and magnesium IV as well as some oral potassium. Further care of this patient is turned over to Dr. Valenzuela at 1900 hrs. with final disposition pending (CARROLL HARO) 06/07/20 00:01 MDM Received pt from Dr. Haro and pt was weak and nearly passed out. K a bit low here. Medical workup is reassuring and she looks improved here and ambulates without any difficulty here and I feel is safe for follow up. Discussed follow up and she expressed understanding. No SI or HI and no concerning findings here. (STANISLAV AMADOR) - Vital Signs Vital signs: Temp Pulse Resp BP Pulse Ox 97.8 F 21 H 98 06/06/20 15:54 06/06/20 16:09 06/06/20 16:09 - Laboratory Laboratory results interpreted by me: 06/06/20 06/06/20 06/06/20 16:10 16:10 18:20 WBC 15.5 H Absolute Lymphs (auto) 6.5 H Potassium 2.9 L* Glucose 45 L Magnesium 1.5 L Urine Glucose (UA) >=500 H Discharge <CARROLL HARO - Last Filed: 06/06/20 19:04> <STANISLAV AMADOR - Last Filed: 06/07/20 00:08> - Discharge Clinical Impression: Syncope, near, Hypokalemia Condition: Stable Disposition: HOME, SELF-CARE Instructions: Hypokalemia ([facility]), Near Syncopal Episode ([facility]), Weakness ([facility]) Additional Instructions: Your potassium was a bit low. It needs to be rechecked. Take your medicine as directed. Please return here for any problems or any concerns including but not limited to chest pain or shortness of breath. Your medicine was sent to [facility] in [place]. Prescriptions: Potassium Chloride 20 meq PO DAILY #7 packet Referrals: SHARI LAMAS PA-C [Primary Care Provider] - Follow up as needed
[2020-06-06 18:40] LABS: APPEARANCE,URINE CLEAR; BILIRUBIN,URINE NEGATIVE (NEGATIVE); COLOR,URINE YELLOW; GLUCOSE, URINE >=500 mg/dL (NEGATIVE); KETONES,URINE NEGATIVE (NEGATIVE); PROTEIN,URINE NEGATIVE (NEGATIVE); URINE SPECIFIC GRAVITY 1.005; UROBILINOGEN,URINE NEGATIVE mg/dL (<2.0)
[2020-06-06 18:58] LABS: URINE AMPHETAMINES SCREEN NEGATIVE; URINE BARBITURATES SCREEN NEGATIVE; URINE BENZODIAZEPINES SCREEN NEGATIVE; URINE COCAINE SCREEN NEGATIVE; URINE MARIJUANA (THC) SCREEN NEGATIVE; URINE METHADONE SCREEN NEGATIVE; URINE PHENCYCLIDINE SCREEN NEGATIVE
--- NOTE | 2020-06-06 21:52 | EKG REPORT ---
SEVERITY:- ABNORMAL ECG - SINUS RHYTHM ATRIAL PREMATURE COMPLEX PROBABLE LVH WITH SECONDARY REPOL ABNRM : Confirmed by: Fernanda Edwards MD 06-Jun-2020 21:51:33
[2020-06-07 01:00] VITALS: BP 101/63
== END 2020-06-07 01:00 | disposition home or self-care (01) ==
LOC: EEVIPCON 15:54 → ER 15:54
DX: R55 Syncope and collapse (principal); E87.6 Hypokalemia; R47.81 Slurred speech; W19.XXXA Unspecified fall, initial encounter; Z88.8 Allergy status to other drugs, medicaments and biological substances; Z88.0 Allergy status to penicillin; F17.200 Nicotine dependence, unspecified, uncomplicated; E11.9 Type 2 diabetes mellitus without complications; I10 Essential (primary) hypertension; E78.5 Hyperlipidemia, unspecified; I25.10 Atherosclerotic heart disease of native coronary artery without angina pectoris; I25.2 Old myocardial infarction
CPT/HCPCS: 93005; 99285; 96361; 96375; 96365; 96366; 96368; 36415; 87040; 82962; 80307 ×2; 82140; 83605; 83735; 84443; 85025; 85610; 85730; 80053; 81001; 84484; 71045; 70450; 93010; J3490 ×2; J3475; J3480; J7030

== ENCOUNTER 2020-08-27 20:51 | Observation (INO) | payer MEDICAID ==
--- NOTE | 2020-08-27 22:37 | ER Document Report ---
ED GI/ - General Chief Complaint: Nausea/Vomiting Stated Complaint: VOMITTING AND SPIDER BITE Time Seen by Provider: 08/27/20 22:34 Primary Care Provider: SHARI LAMAS PA-C [Primary Care Provider] - Follow up as needed Mode of Arrival: Medic Information source: Patient Notes: 08/27/20 21:03 - ED Nursing Note by BEKA RICON Acct Num: [id number] : 1965 Patient Age: 55 PT PRESENTS TO ED VIA EMS W/ C/O OF ABD PAIN, N/V SINCE TODAY. PT STATES SHE WAS ALSO RUNNING A FEVER OF 101.2f AT HOME THAT WAS RELIEVED BY IBUPROFEN. PT ALSO STATES SHE HAS HAD A SPIDER BITE ON HER LEFT CALF X1 MONTH THAT IS RED AND WARM TO TOUCH. VSS IN ED, AOX4, BREATHES E/U. DENIES ABD AT THIS TIME MY NOTES 55-year-old female arrives with chief complaint of having nausea and vomiting more than 10 times a day after she was cleaning her left lower leg spider bite wound that has been present for more than 1.5-month. She cleaned the wound with some alcohol first then some peroxide and then applied A and D ointment and a covering to her left lower anterior leg spider bite wound which appears to have an eschar over it at this time. She reports all members of her family have had a nausea vomiting diarrhea virus go throughout the family to include her daughter Vaishnavi Flor who came here last week with similar symptoms as well as her stepdaughter and her boyfriend and her 11-year-old granddaughter went back to [place] over the last day or so. Patient denies any sore throat admits to some anterior abdominal pain denies any fever or coronavirus exposure. She denies any skin rash. She denies any nuchal rigidity headache hemoptysis black tarry stools. She reports 10 days ago she got her Pneumovax shot in her left shoulder. She reports she cannot take the flu shot because she has an anaphylactic reaction to this. Patient saw Dr. Tucker in the past and has a prior history of diabetes nausea vomiting gastroparesis sepsis hepatitis C RAD. She no longer sees Dr. Tucker but rather sees Dr. De La Torre. Patient just got back from [place] where she stayed for 4 years. She reports she has been IDDM all her life since a little girl. She takes Lantus 20 at nighttime and NovoLog sliding scale throughout the day. TRAVEL OUTSIDE OF THE [place]. IN LAST 30 DAYS: No - Related Data Allergies/Adverse Reactions: aspirin [Aspirin] Allergy (Severe, Verified 09/15/18 20:14) Hives Influenza A (H1N1)Vaccine 2009 * [Influenza A (H1N1)Vaccine 2009] Allergy (Severe, Verified 09/15/18 20:14) Anaphylaxis Influenza Virus Vaccines [Influenza Virus Vaccine] Allergy (Severe, Verified 09/15/18 20:14) Anaphylaxis Tetanus Vaccines and Toxoid [Tetanus] Allergy (Severe, Verified 09/15/18 20:14) Anaphylaxis latex [Latex] Allergy (Intermediate, Verified 09/15/18 20:14) Hives levofloxacin [From Levaquin] Allergy (Intermediate, Verified 09/15/18 20:14) Hives Penicillins Allergy (Intermediate, Verified 09/15/18 20:14) Hives miconazole [Miconazole] Allergy (Mild, Verified 09/15/18 20:14) Edema levothyroxine sodium [Levothyroxine Sodium] Allergy (Verified 09/15/18 20:14) swelling lidocaine Allergy (Verified 09/15/18 20:14) Past Medical History - General Information source: Patient - Social History Smoking Status: Unknown if Ever Smoked Cigarette use (# per day): Yes Chew tobacco use (# tins/day): No Smoking Education Provided: Yes Frequency of alcohol use: None Drug Abuse: None Family History: Reviewed & Not Pertinent Patient has suicidal ideation: No Patient has homicidal ideation: No - Past Medical History Cardiac Medical History: Reports: Hx Coronary Artery Disease, Hx Heart Attack, Hx Hypercholesterolemia, Hx Hypertension, Hx Pulmonary Embolism - 2006 Denies: Hx Atrial Fibrillation, Hx Congestive Heart Failure, Hx Peripheral Vascular Disease, Hx Heart Murmur Pulmonary Medical History: Reports: Hx Asthma, Hx Bronchitis, Hx Pneumonia, Hx Respiratory Failure Denies: Hx COPD, Hx Sleep Apnea, Hx Tuberculosis Neurological Medical History: Reports: Hx Cerebrovascular Accident - Memory loss, Hx Migraine. Denies: Hx Seizures, Hx Parkinson's Disease Endocrine Medical History: Reports: Hx Diabetes Mellitus Type 2, Hx Hypothyroidism. Denies: Hx Graves' Disease, Hx Hyperthyroidism Renal/ Medical History: Reports: Hx Kidney Stones, Hx Pelvic Inflammatory Disease. Denies: Hx End Stage Renal Disease, Hx Ovarian Cysts, Hx Peritoneal Dialysis Malignancy Medical History: Denies: Hx Breast Cancer, Hx Cervical Cancer, Hx Leukemia, Hx Lung Cancer, Hx Ovarian Cancer GI Medical History: Reports: Hx Irritable Bowel, Hx Liver Failure - 2010, Hx Ulcer. Denies: Hx Crohn's Disease, Hx Gastroesophageal Reflux Disease, Hx Hiatal Hernia, Hx Pancreatitis Musculoskeletal Medical History: Reports Hx Arthritis, Denies Hx Fibromyalgia, Denies Hx Multiple Sclerosis, Denies Hx Muscular Dystrophy, Denies Hx Systemic Lupus Erythematosus Psychiatric Medical History: Reports: Hx Depression Denies: Hx Bipolar Disorder, Hx Dementia, Hx Post Traumatic Stress Disorder, Hx Schizophrenia Traumatic Medical History: Reports: Hx Fractures Infectious Medical History: Denies: Hx HIV Past Surgical History: Reports: Hx Cardiac Surgery - stent placed 2019, Hx Section - partial 2008, Hx Gynecologic Surgery - partial hysterectomy, Hx Hysterectomy, Hx Orthopedic Surgery - back, right knee, left ankle. Denies: Hx Appendectomy, Hx Bowel Surgery, Hx Cholecystectomy, Hx Colostomy, Hx Coronary Artery Bypass Graft, Hx Gastric Bypass Surgery, Hx Herniorrhaphy, Hx Mastectomy, Hx Pacemaker, Hx Tonsillectomy, Hx Tubal Ligation - Immunizations Hx Diphtheria, Pertussis, Tetanus Vaccination: No - allergic Review of Systems - Review of Systems Constitutional: See HPI, Malaise, Weakness EENT: No symptoms reported Cardiovascular: No symptoms reported Respiratory: No symptoms reported Gastrointestinal: See HPI, Abdominal pain, Diarrhea, Nausea, Vomiting Genitourinary: No symptoms reported Female Genitourinary: No symptoms reported Musculoskeletal: No symptoms reported Skin: No symptoms reported Hematologic/Lymphatic: No symptoms reported Neurological/Psychological: See HPI, Weakness -: Yes All other systems reviewed and negative Physical Exam - Vital signs Vitals: BP 110/75 08/27/20 20:55 Interpretation: Normal - General General appearance: Appears well, Alert - HEENT Head: Normocephalic, Atraumatic Eyes: Normal Pupils: PERRL - Respiratory Respiratory status: No respiratory distress Chest status: Nontender Breath sounds: Normal Chest palpation: Normal - Cardiovascular Rhythm: Regular Heart sounds: Normal auscultation Murmur: No - Abdominal Inspection: Normal Distension: No distension Bowel sounds: Normal Tenderness: Nontender Organomegaly: No organomegaly - Rectal Hemorrhoids: Other - deferred - Genitourinary Bimanuel exam: Other - deferred - Back Back: Normal, Nontender - Extremities General upper extremity: Normal inspection, Nontender, Normal color, Normal ROM, Normal temperature General lower extremity: Tender - Left lower extremity with a central eschar approximately 1 cm diameter distal tibia arango with no obvious surrounding cellulitis, Normal color, Normal ROM, Normal temperature, Normal weight bearing. No: Sheron's sign - Neurological Neuro grossly intact: Yes Cognition: Normal Orientation: AAOx4 Alli Coma Scale Eye Opening: Spontaneous [place] Coma Scale Verbal: Oriented Alli Coma Scale Motor: Obeys Commands [place] Coma Scale Total: 15 Speech: Normal Motor strength normal: LUE, RUE, LLE, RLE Sensory: Normal - Psychological Associated symptoms: Normal affect, Normal mood - Skin Skin Temperature: Warm Skin Moisture: Dry Skin Color: Normal Course - Vital Signs Vital signs: Temp Pulse Resp BP Pulse Ox 97.5 F 76 16 110/75 93 08/27/20 21:02 08/27/20 21:02 08/27/20 21:02 08/27/20 21:02 08/27/20 22:01 - Laboratory Result Diagrams: 08/27/20 21:00 08/27/20 21:00 Laboratory results interpreted by me: 08/27/20 08/27/20 21:00 21:00 WBC 18.7 H Lymph % (Auto) 11.4 L Absolute Neuts (auto) 15.3 H Seg Neutrophils % 81.8 H Sodium 131.5 L Chloride 91 L BUN 41 H Glucose 454 H* Calcium 11.4 H - Diagnostic Test Radiology reviewed: Reports reviewed - EKG Interpretation by Me EKG shows normal: Sinus rhythm Rate: Normal Rhythm: NSR - [address] elevation no ST depression no T wave elevation no T wave depression and this EKG was read by myself and I agree with the EKG interpretation. Critical Care Note - Critical Care Note Comments: I spoke with Dr. Lamberto Donahue @ 0015 and he advises he will come evaluate the patient and will admit patient. Patient appears to be dehydrated and perhaps gastroparesis versus norovirus gastroenteritis. Insulin Humulin was given by nursing staff and also IV fluids 2 L wide open. Discharge - Discharge Clinical Impression: Gastroenteritis, Hyperglycemia Spider bite wound Qualifiers: Encounter type: initial encounter Injury intent: accidental or unintentional Qualified Code(s): T63.301A - Toxic effect of unspecified spider venom, accidental (unintentional), initial encounter Sepsis Qualifiers: Sepsis type: sepsis due to unspecified organism Sepsis acute organ dysfunction status: unspecified Qualified Code(s): A41.9 - Sepsis, unspecified organism Condition: Stable Disposition: ADMITTED INPATIENT Admitting Provider: [facility]iaim[facility] Unit Admitted: Medical Floor Referrals: SHARI LAMAS PA-C [Primary Care Provider] - Follow up as needed
[2020-08-27 22:45] LABS: ABSOLUTE BASOPHILS # (AUTO) 0.1 10^3/uL (0.0-0.2); ABSOLUTE EOSINOPHILS # (AUTO) 0.2 10^3/uL (0.0-0.6); ABSOLUTE LYMPHOCYTES (AUTO) 2.1 10^3/uL (0.5-4.7); ABSOLUTE NEUT (AUTO) 15.3 10^3/uL (1.7-8.2); BASOPHILS % (AUTO) 0.5 % (0-2); EOSINOPHILS % (AUTO) 0.8 % (0-6); HEMATOCRIT 44.1 % (36.0-47.0); HEMOGLOBIN 15.1 g/dL (12.0-15.5); LYMPHOCYTES % (AUTO) 11.4 % (13-45); MEAN CORPUSCULAR HEMOGLOBIN 30.5 pg (27.0-33.4); MEAN CORPUSCULAR HGB CONC 34.2 g/dL (32.0-36.0); MEAN CORPUSCULAR VOLUME 89 fl (80-97); MONOCYTES % (AUTO) 5.5 % (3-13); PLATELET COUNT 257 10^3/uL (150-450); RED BLOOD COUNT 4.95 10^6/uL (3.72-5.28); RED CELL DISTRIBUTION WIDTH 13.3 % (11.5-14.0); SEGMENTED NEUTROPHILS % (AUTO) 81.8 % (42-78); TOTAL CELLS COUNTED % (AUTO) 100 %; WHITE BLOOD COUNT 18.7 10^3/uL (4.0-10.5)
[2020-08-27 22:59] LABS: ALBUMIN 4.5 g/dL (3.5-5.0); ALKALINE PHOSPHATASE 111 U/L (38-126); ANION GAP 11 (5-19); ASPARTATE AMINO TRANSFERASE 18 U/L (14-36); BILIRUBIN,DIRECT 0.2 mg/dL (0.0-0.4); BILIRUBIN,TOTAL 0.6 mg/dL (0.2-1.3); BLOOD UREA NITROGEN 41 mg/dL (7-20); CALCIUM 11.4 mg/dL (8.4-10.2); CARBON DIOXIDE 30 mmol/L (22-30); CHLORIDE 91 mmol/L (98-107); POTASSIUM 4.7 mmol/L (3.6-5.0); TOTAL PROTEIN 7.7 g/dL (6.3-8.2)
[2020-08-27] MEDS: NORMAL SALINE 1000 ML 1,000 ML IV PRN (23:20)
[2020-08-27 23:23] LABS: GLUCOSE 454 mg/dL (75-110)
--- NOTE | 2020-08-27 23:26 | RADIOLOGY REPORT (SQ) ---
CHEST X-RAY 1 VIEW on 08/27/2020 at 10:41 PM CLINICAL INDICATION: Weakness COMPARISON: 06/06/2020 FINDINGS: The lungs are clear. Cardiac, hilar and mediastinal contours are within normal limits. Pulmonary vascularity is within normal limits. No bony abnormality is noted. IMPRESSION: No active disease.
[2020-08-27] MEDS ORDERED: INSULIN REG, HUMAN 100 UNIT/ML 3 ML VIAL (PYX) IV ONE (23:46)
[2020-08-27] MEDS ORDERED: PROMETHAZINE HCL INJ 25 MG/1 ML VIAL IV ONE (23:49)
[2020-08-28] MEDS ORDERED: VANCOMYCIN HCL INJ 1000 MG VIAL IV ONE
--- NOTE | 2020-08-28 00:42 | RADIOLOGY REPORT (SQ) ---
CT ABDOMEN PELVIS WITH IV CONTRAST HISTORY: Abdominal pain. Nausea and vomiting. COMPARISON: None. TECHNIQUE: CT scan of the abdomen and pelvis was performed with IV contrast. This exam was performed according to our departmental dose-optimization program, which includes automated exposure control, adjustment of the mA and/or kV according to patient size and/or use of iterative reconstruction technique. FINDINGS: The lung bases are clear. No pleural or pericardial effusions. There is no hiatal hernia. The liver, spleen, pancreas, gallbladder, adrenal glands, and kidneys are unremarkable. No hydronephrosis or urinary stones are seen. There has been a prior hysterectomy. The urinary bladder is unremarkable. The stomach and duodenum are unremarkable. No small bowel obstruction is seen. The appendix is normal in caliber. There is a moderate amount of stool throughout the large bowel and rectum. No adenopathy, free fluid, or free air is identified. There has been prior fixation at L4-L5. The aorta is normal caliber and contains atherosclerotic calcifications. There is a tiny fat-containing umbilical hernia. IMPRESSION: 1. No acute abdominal or pelvic findings. 2. Findings which may represent constipation but without bowel obstruction or inflammation.
[2020-08-28] MEDS ORDERED: ACETAMINOPHEN 325 MG TABLET PO PRN (00:56)
[2020-08-28] MEDS ORDERED: PROMETHAZINE HCL INJ 25 MG/1 ML VIAL IV PRN (00:56)
[2020-08-28] MEDS ORDERED: DEXTROSE 50%-WATER 25 GM/50 ML DISP.SYRIN IV PRN ×2 (01:12)
[2020-08-28] MEDS ORDERED: DEXTROSE 40% GEL 15 GM TUBE PO PRN ×2 (01:12)
[2020-08-28] MEDS ORDERED: GLUCAGON,HUMAN RECOMB 1 MG INJ IM PRN (01:12)
[2020-08-28] MEDS ORDERED: INSULIN GLARGINE,HUM.REC.ANLOG 1,000 UNIT/10 ML VIAL SUBCUT SCH (01:15)
[2020-08-28] MEDS: FAMOTIDINE INJ/PF 20 MG/2 ML SDV IV SCH ×2 (01:52→10:00)
[2020-08-28] MEDS: NORMAL SALINE 1000 ML 1,000 ML IV PRN ×4 (02:07→19:35)
--- NOTE | 2020-08-28 03:55 | PDOC H&P ---
History of Present Illness Admission Date/PCP: SHARI LAMAS PA-C Patient complains of: Nausea, vomiting History of Present Illness: DEMETRICE MOORE is a 55 year old female with a history of type 1 diabetes, hypertension and hyperlipidemia who presents to the ER with a 1 day duration of intractable nausea and vomiting of ingested matter. She states that she had 10 episodes of nonbloody, nonbilious vomiting since this morning and she has not been able to keep anything down. Associated with this she also reports cramping intermittent epigastric pain of the same duration. Patient states that pain is 9-10/10 intensity at its worst, has no radiation and she has not noticed any clear provoking or relieving factor. She states that she feels lightheaded rey cially when she tries to move. She also reports that she had a fever of one 1.2 before presenting to the ER which subsided after she took ibuprofen. Patient also states that she recently had a spider bite a month and half ago on the left lower extremity and the wound has been getting worse. She states that her daughter and her daughter's boyfriend have been having similar symptoms the past 2 days. She denies any cough, shortness of breath, chest pain, palpitation, diarrhea, leg swelling. She states that she has been compliant with her insulin. Past Medical History Cardiac Medical History: Reports: Coronary Artery Disease, Myocardial Infarction, Hyperlipidema, Hypertension, Pulmonary Embolism - 2006 Denies: Atrial Fibrillation, Congestive Heart Failure, Peripheral Vascular Disease, Heart Murmur Pulmonary Medical History: Reports: Asthma, Bronchitis, Pneumonia, Respiratory Failure Denies: Chronic Obstructive Pulmonary Disease (COPD), Sleep Apnea, Tuberculosis Neurological Medical History: Reports: Migraine Denies: Seizures Endocrine Medical History: Reports: Diabetes Mellitus Type 2, Hypothyroidism Denies: Hyperthyroidism Renal/ Medical History: Denies: End Stage Renal Disease Malignancy Medical History: Denies: Breast Cancer, Cervical Cancer, Leukemia, Lung Cancer, Ovarian Cancer GI Medical History: Denies: Crohn's Disease, Gastroesophageal Reflux Disease, Hiatal Hernia Musculoskeltal Medical History: Reports: Arthritis Denies: Fibromyalgia Psychiatric Medical History: Reports: Depression Denies: Bipolar Disorder, Dementia, Post Traumatic Stress Disorder Hematology: Denies: Anemia, Hemophilia, Sickle Cell Disease Infectious Medical History: Denies: HIV Past Surgical History Past Surgical History: Reports: Section - partial 2009, Hysterectomy, Orthopedic Surgery - back, right knee, left ankle Denies: Amputation, Appendectomy, Cholecystectomy, Colostomy, Coronary Artery Bypass Graft, Gastric Bypass Surgery, Herniorrhaphy, Mastectomy, Pacemaker, Tonsillectomy, Tubal Ligation Social History Information Source: Patient Smoking Status: Current Every Day Smoker Frequency of Alcohol Use: None Hx Recreational Drug Use: No Drugs: None Hx Prescription Drug Abuse: No - Advance Directive Resuscitation Status: Full Code Family History Family History: Reviewed & Not Pertinent Parental Family History Reviewed: Yes Children Family History Reviewed: Yes Sibling(s) Family History Reviewed.: Yes Medication/Allergy Home Medications: Cyclobenzaprine HCl [Flexeril 10 mg Tablet] 10 mg PO Q8 03/06/18 Gabapentin [Neurontin 300 mg Capsule] 600 mg PO Q8 03/06/18 Azelastine HCl 205.5 mcg NS BID 03/09/18 Benzonatate 100 mg PO TID PRN 03/09/18 Dicyclomine HCl 20 mg PO QID PRN 03/09/18 Emollient [Cream Base] 454 gm TP Q3 PRN 03/09/18 Fluticasone Propionate [24 Hour Allergy] 50 mcg NS DAILY 03/09/18 Hyoscyamine 0.125 mg PO Q4HP PRN 03/09/18 Ondansetron [Ondansetron Odt] 4 mg PO Q12 PRN 03/09/18 Paroxetine HCl 20 mg PO DAILY 03/09/18 Sodium Chloride [Saline Nasal [place]] 44 ml NS ASDIR PRN 03/09/18 Doxycycline Hyclate [Vibramycin 100 mg Tablet] 100 mg PO Q12 #10 tablet 03/11/18 Hum Insulin NPH/Reg Insulin Hm [Novolin 70-30 100 Unit/ml Vial] 23 unit SQ DAILY #1 vial 03/11/18 Insulin Lispro [Humalog Insulin (Lispro) 100 unit/mL] 0 - 12 unit SUBCUT ACHSP PRN #1 vial 03/11/18 Lisinopril [Prinivil 30 mg Tablet] 30 mg PO DAILY #30 tablet 03/11/18 Quetiapine Fumarate 50 mg PO QHS #0 03/11/18 Simvastatin [Zocor 10 mg Tablet] 20 mg PO QHS #30 tablet 03/11/18 Doxycycline Hyclate 100 mg PO BID #14 capsule 09/16/18 Potassium Chloride 20 meq PO DAILY #7 packet 06/07/20 Allergies/Adverse Reactions: aspirin [Aspirin] Allergy (Severe, Verified 09/15/18 20:14) Hives Influenza A (H1N1)Vaccine 2009 * [Influenza A (H1N1)Vaccine 2009] Allergy (Severe, Verified 09/15/18 20:14) Anaphylaxis Influenza Virus Vaccines [Influenza Virus Vaccine] Allergy (Severe, Verified 09/15/18 20:14) Anaphylaxis Tetanus Vaccines and Toxoid [Tetanus] Allergy (Severe, Verified 09/15/18 20:14) Anaphylaxis latex [Latex] Allergy (Intermediate, Verified 09/15/18 20:14) Hives levofloxacin [From Levaquin] Allergy (Intermediate, Verified 09/15/18 20:14) Hives Penicillins Allergy (Intermediate, Verified 09/15/18 20:14) Hives miconazole [Miconazole] Allergy (Mild, Verified 09/15/18 20:14) Edema levothyroxine sodium [Levothyroxine Sodium] Allergy (Verified 09/15/18 20:14) swelling lidocaine Allergy (Verified 09/15/18 20:14) Review of Systems Constitutional: PRESENT: as per HPI Eyes: ABSENT: visual disturbances Ears: ABSENT: hearing changes Nose, Mouth, and Throat: ABSENT: headache(s), mouth pain, sore throat Cardiovascular: ABSENT: chest pain, dyspnea on exertion, edema, orthropnea, palpitations Respiratory: ABSENT: cough, hemoptysis Gastrointestinal: PRESENT: as per HPI Genitourinary: ABSENT: dysuria, hematuria Musculoskeletal: ABSENT: joint swelling Integumentary: PRESENT: as per HPI Neurological: ABSENT: abnormal speech, confusion, dizziness, focal weakness, syncope Psychiatric: ABSENT: anxiety, depression, homidical ideation, suicidal ideation Endocrine: PRESENT: as per HPI, polydipsia, polyuria Hematologic/Lymphatic: ABSENT: easy bleeding, easy bruising Physical Exam Vital Signs: Temp Pulse Resp BP Pulse Ox 97.5 F 76 16 110/75 93 08/27/20 21:02 08/27/20 21:02 08/27/20 21:02 08/27/20 21:02 08/27/20 22:01 Intake & Output 08/26/20 08/27/20 08/28/20 06:59 06:59 06:59 Weight 49.8 kg Additional comments: GENERAL APPEARANCE: Lethargic but oriented x3, in no acute distress HEENT: Normocephalic and atraumatic. No scleral icterus. Dry oral mucosa NECK: Supple. No lymphadenopathy or tenderness. No carotid bruit. No JVD CHEST: Symmetric. Nontender to palpation. LUNGS: Clear with good air entry bilaterally. No wheezing or crackles HEART: Regular rate and rhythm with normal S1 and S2. No murmurs, gallops, or rubs. ABDOMEN: Flat, soft, active bowel sounds, no direct or rebound tenderness. No organomegaly detected. EXTREMITIES: No cyanosis, clubbing, or edema. MUSCULOSKELETAL: No deformity, atrophy or swelling noted PSYCHIATRIC: Recent and remote memory is intact. Appropriate mood and affect. SKIN: Warm, dry, and well perfused. Has a 2 x 2 centimeter open wound on the lateral aspect of the left leg around mid arango area with minimal surrounding erythema and tenderness. No discharge noted. NEUROLOGIC: No focal sensory or motor deficits are noted. Results Laboratory Results: 08/27/20 21:00 08/27/20 21:00 08/27/20 08/27/20 08/27/20 21:00 21:00 23:19 WBC 18.7 H RBC 4.95 Hgb 15.1 Hct 44.1 MCV 89 MCH 30.5 MCHC 34.2 RDW 13.3 Plt Count 257 Seg Neutrophils % 81.8 H Sodium 131.5 L Potassium 4.7 Chloride 91 L Carbon Dioxide 30 Anion Gap 11 BUN 41 H Creatinine 0.91 Est GFR ( Amer) > 60 Glucose 454 H* Lactic Acid 1.3 Calcium 11.4 H Total Bilirubin 0.6 AST 18 Alkaline Phosphatase 111 Total Protein 7.7 Albumin 4.5 08/27/20 21:00 Troponin I < 0.012 Impressions: Chest X-Ray 08/27/20 22:35 IMPRESSION: No active disease. Abdomen/Pelvis CT 08/27/20 23:01 IMPRESSION: 1. No acute abdominal or pelvic findings. 2. Findings which may represent constipation but without bowel obstruction or inflammation. Assessment and Plan - Diagnosis (1) Intractable nausea and vomiting Is this a current diagnosis for this admission?: Yes Plan: Likely due to viral gastroenteritis vs gastroparesis from diabetes Abdomen was soft and nontender on physical exam CT abdomen showed no acute intra-abdominal finding Patient received 1 L of bolus normal saline at the ER Lactic acid level was within normal limit Will obtain lipase level Keep her n.p.o. for bowel rest Continue IV hydration Promethazine as needed for nausea and vomiting (2) Volume depletion Is this a current diagnosis for this admission?: Yes Plan: Secondary to GI loss from intractable nausea and vomiting Unable to do orthostatic vitals due to patient being symptomatic while lying High BUN/creatinine ratio of 41/0.91 Hold antihypertensive medications for now Continue IV hydration Closely monitor vital signs and renal indices (3) Hyperglycemia Is this a current diagnosis for this admission?: Yes Plan: Blood sugar on presentation was 454 Likely contributing to volume depletion due to osmotic diuresis Anion gap was normal and bicarb 30 Placed her on Lantus 20 units nightly Sliding scale insulin, Accu-Chek and hypoglycemia protocol (4) Spider bite wound Qualifiers: Encounter type: initial encounter Injury intent: accidental or unintentional Qualified Code(s): T63.301A - Toxic effect of unspecified spider venom, accidental (unintentional), initial encounter Is this a current diagnosis for this admission?: Yes Plan: Has nonhealing wound on the left leg for the past month and half No visible discharge on physical examination Has leukocytosis of 18.7k and a history of fever Hemoconcentration may be contributing to leukocytosis SIRS criteria: 1/4, qSOFA: 0/3 indicating low probability for sepsis Lactic acid level was within the normal limit Will obtain ESR and C-reactive protein Patient was given vancomycin first dose at the ED Wound care and wound consult has been placed Continue vancomycin for now and de-escalate to oral when patient tolerates p.o. Follow-up with blood culture Will consider imaging if ESR and CRP are elevated to rule out bone involvement (5) HLD (hyperlipidemia) Qualifiers: Hyperlipidemia type: pure hypercholesterolemia Qualified Code(s): E78.00 - Pure hypercholesterolemia, unspecified; E78.0 - Pure hypercholesterolemia Is this a current diagnosis for this admission?: Yes Plan: Continue simvastatin (6) HTN (hypertension) Qualifiers: Hypertension type: essential hypertension Qualified Code(s): I10 - Essential (primary) hypertension Is this a current diagnosis for this admission?: Yes Plan: Hold antihypertensive medication for now due to volume depletion (7) Type 1 diabetes mellitus Is this a current diagnosis for this admission?: Yes Plan: Now presented with hyperglycemia of 454 Encouraged compliance with medication Continue management as outlined above under hyperglycemia (8) Suspected COVID-19 virus infection Is this a current diagnosis for this admission?: Yes Plan: Patient presents with GI symptoms, fever and body aches Multiple members of her family have similar symptoms Could likely be due to viral gastroenteritis Will get COVID-19 test - Time Time Spent with patient: 35 or more minutes Total Critical Time (Minutes): 45 Smoking Cessation Education: 3 to 10 minutes Medications reviewed and adjusted accordingly: Yes Anticipated Discharge Disposition: Home, Self Care Anticipated Discharge Timeframe: within 48 hours - Inpatient Certification Based on my medical assessment, after consideration of the patient's comorbidities, presenting symptoms, or acuity I expect that the services needed warrant INPATIENT care.: Yes I certify that my determination is in accordance with my understanding of Medicare's requirements for reasonable and necessary INPATIENT services [42 CFR 412.3e].: Yes Medical Necessity: Need Close Monitoring Due to Risk of Patient Decompensation, Need For IV Fluids, Risk of Complication if Not Cared For in Hospital Post Hospital Care: D/C or Transfer Summary
[2020-08-28 05:49] LABS: ABSOLUTE BASOPHILS # (AUTO) 0.1 10^3/uL (0.0-0.2); ABSOLUTE EOSINOPHILS # (AUTO) 0.2 10^3/uL (0.0-0.6); ABSOLUTE LYMPHOCYTES (AUTO) 3.1 10^3/uL (0.5-4.7); ABSOLUTE MONOCYTES (AUTO) 0.6 10^3/uL (0.1-1.4); ABSOLUTE NEUT (AUTO) 5.9 10^3/uL (1.7-8.2); BASOPHILS % (AUTO) 0.6 % (0-2); EOSINOPHILS % (AUTO) 2.2 % (0-6); HEMOGLOBIN 14.3 g/dL (12.0-15.5); LYMPHOCYTES % (AUTO) 31.3 % (13-45); MEAN CORPUSCULAR HEMOGLOBIN 31.1 pg (27.0-33.4); MEAN CORPUSCULAR HGB CONC 34.8 g/dL (32.0-36.0); MEAN CORPUSCULAR VOLUME 89 fl (80-97); MONOCYTES % (AUTO) 6.4 % (3-13); PLATELET COUNT 208 10^3/uL (150-450); RED CELL DISTRIBUTION WIDTH 13.2 % (11.5-14.0); SEGMENTED NEUTROPHILS % (AUTO) 59.5 % (42-78); TOTAL CELLS COUNTED % (AUTO) 100 %; WHITE BLOOD COUNT 9.9 10^3/uL (4.0-10.5)
[2020-08-28] MEDS ORDERED: VANCOMYCIN HCL 0 MG in DEXTROSE 5%-WATER 250 ML IV NR (06:00)
[2020-08-28] MEDS: INSULIN REG, HUMAN 100 UNIT/ML 3 ML VIAL (PYX) SUBCUT SCH ×3 (06:27→18:45)
[2020-08-28] MEDS: INSULIN GLARGINE,HUM.REC.ANLOG 1,000 UNIT/10 ML VIAL SUBCUT SCH (06:28)
[2020-08-28 07:25] LABS: ANION GAP 5 (5-19); BLOOD UREA NITROGEN 32 mg/dL (7-20); CALCIUM 9.4 mg/dL (8.4-10.2); CARBON DIOXIDE 27 mmol/L (22-30); CHLORIDE 102 mmol/L (98-107); POTASSIUM 4.4 mmol/L (3.6-5.0)
[2020-08-28 07:52] LABS: GLUCOSE 457 mg/dL (75-110)
[2020-08-28 08:03] LABS: APPEARANCE,URINE SLIGHTLY-CLOUDY; BILIRUBIN,URINE NEGATIVE (NEGATIVE); COLOR,URINE YELLOW; GLUCOSE, URINE >=500 mg/dL (NEGATIVE); KETONES,URINE NEGATIVE (NEGATIVE); LEUKOCYTE ESTERASE,URINE MODERATE (NEGATIVE); NITRITE,URINE POSITIVE (NEGATIVE); PROTEIN,URINE NEGATIVE (NEGATIVE); URINE SPECIFIC GRAVITY 1.036; UROBILINOGEN,URINE NEGATIVE mg/dL (<2.0)
[2020-08-28] MEDS: ENOXAPARIN SODIUM INJ 40 MG/0.4 ML DISP.SYRIN SUBCUT SCH (10:01)
--- NOTE | 2020-08-28 15:12 | EKG REPORT ---
SEVERITY:- ABNORMAL ECG - SINUS RHYTHM PROBABLE LEFT ATRIAL ABNORMALITY PROBABLE LVH WITH SECONDARY REPOL ABNRM : Confirmed by: Fernanda Edwards MD 28-Aug-2020 15:12:05
[2020-08-28] MEDS ORDERED: TIZANIDINE HCL 4 MG TABLET PO PRN (19:12)
--- NOTE | 2020-08-28 19:19 | Progress Note ---
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 Overnight events, vital signs, nurse notes, Laboratory results, imaging, H&P, and orders reviewed. Patient was briefly seen this morning. She was found resting in bed, comfortably, on room air. She reports continued nausea but without emesis. Would like to try clear liquids. Otherwise, no significant changes to her cli nical status or assessment as was described in the H&P. Agree with plan of care as established by the previous provider. In addition, patient's home medications have been reconciled and resumed were appropriate. We will continue gentle IV fluids. Will check orthostatic vital signs every shift. We will cautiously advance to clear liquid diet. Patient is cautioned to/drink small volumes at a slow pace. Urinalysis is somewhat suggestive of UTI, will request urine culture. As the patient has reported fevers at home with family members with similar illnesses, will rule out COVID-19. Discussed plan of care with nursing. If patient tolerates clear liquids with continued clinical improvement, will be able to rapidly discharged home. Anticipate possible discharge tomorrow morning.
[2020-08-28] MEDS ORDERED: MONTELUKAST SODIUM 10 MG TABLET PO SCH (22:00)
[2020-08-28] MEDS ORDERED: FAMOTIDINE 20 MG TABLET PO SCH (22:00)
[2020-08-28] MEDS ORDERED: QUETIAPINE FUMARATE 100 MG TABLET PO SCH (22:00)
[2020-08-28] MEDS: GABAPENTIN 400 MG CAPSULE PO SCH (22:26)
[2020-08-28] MEDS: RANOLAZINE 500 MG TAB.SR.12H PO SCH (22:26)
[2020-08-29] MEDS: INSULIN REG, HUMAN 100 UNIT/ML 3 ML VIAL (PYX) SUBCUT SCH ×4 (01:49→11:10)
[2020-08-29] MEDS: NORMAL SALINE 1000 ML 1,000 ML IV PRN (04:23)
[2020-08-29] MEDS: GABAPENTIN 400 MG CAPSULE PO SCH (06:12)
[2020-08-29 06:54] LABS: HEMATOCRIT 39.6 % (36.0-47.0); HEMOGLOBIN 13.8 g/dL (12.0-15.5); MEAN CORPUSCULAR HEMOGLOBIN 30.7 pg (27.0-33.4); MEAN CORPUSCULAR HGB CONC 34.8 g/dL (32.0-36.0); MEAN CORPUSCULAR VOLUME 88 fl (80-97); PLATELET COUNT 190 10^3/uL (150-450); RED BLOOD COUNT 4.49 10^6/uL (3.72-5.28); RED CELL DISTRIBUTION WIDTH 13.7 % (11.5-14.0); WHITE BLOOD COUNT 7.1 10^3/uL (4.0-10.5)
[2020-08-29 07:15] LABS: BLOOD UREA NITROGEN 22 mg/dL (7-20); CALCIUM 9.3 mg/dL (8.4-10.2); CARBON DIOXIDE 26 mmol/L (22-30); CHLORIDE 109 mmol/L (98-107); GLUCOSE 75 mg/dL (75-110); POTASSIUM 3.6 mmol/L (3.6-5.0)
[2020-08-29 07:19] LABS: ANION GAP 4 (5-19)
[2020-08-29] MEDS ORDERED: (PENDING PHARMACY ID) (Omeprazole [Omeprazole] 40 MG Capsule.Dr) PO SCH (08:00)
[2020-08-29] MEDS ORDERED: PANTOPRAZOLE SODIUM 40 MG TABLET.DR PO SCH (08:00)
[2020-08-29] MEDS ORDERED: INSULIN GLARGINE,HUM.REC.ANLOG 1,000 UNIT/10 ML VIAL (PYX) SUBCUT SCH (09:15)
[2020-08-29] MEDS: RANOLAZINE 500 MG TAB.SR.12H PO SCH (09:31)
[2020-08-29] MEDS: INSULIN GLARGINE,HUM.REC.ANLOG 1,000 UNIT/10 ML VIAL SUBCUT SCH (09:32)
[2020-08-29] MEDS: ENOXAPARIN SODIUM INJ 40 MG/0.4 ML DISP.SYRIN SUBCUT SCH (09:32)
[2020-08-29] MEDS ORDERED: PAROXETINE HCL 40 MG PO SCH (10:00)
[2020-08-29] MEDS ORDERED: LISINOPRIL 10 MG TABLET PO SCH (10:00)
[2020-08-29] MEDS ORDERED: CLOPIDOGREL BISULFATE 75 MG TABLET PO SCH (10:00)
[2020-08-29] MEDS ORDERED: PAROXETINE HCL 20 MG TABLET PO SCH (10:00)
[2020-08-29] MEDS ORDERED: METOPROLOL SUCCINATE 50 MG TAB.SR.24H PO SCH (10:00)
[2020-08-29 12:51] VITALS: BP 139/44
--- NOTE | 2020-09-01 16:24 | PDOC DISCHARGE SUMMARY ---
Impression - Admit/DC Date/PCP Admission Date/Primary Care Provider: 08/28/20 01:17 SHARI LAMAS PA-C Discharge Date: 09/01/20 - Additional Information Resuscitation Status: Full Code Discharge Diet: Diabetic Discharge Activity: Activity As Tolerated, Balance Activity w/Rest, Slowly Increase Activity Referrals: SHARI LAMAS PA-C [Primary Care Provider] - (Follow up within 1 week.) Prescriptions: Ondansetron [Zofran Odt 4 mg Tablet] 1 - 2 tab PO Q4HP PRN #10 tab.rapdis PRN Reason: Home Medications: Clopidogrel Bisulfate [Plavix 75 mg Tablet] 75 mg PO DAILY 08/28/20 Famotidine [Pepcid 20 mg Tablet] 20 mg PO QHS 08/28/20 Gabapentin [Neurontin 400 mg Capsule] 400 mg PO Q8 08/28/20 Ibuprofen [Motrin 800 mg Tablet] 800 mg PO Q8HP PRN 08/28/20 Insulin Aspart [Novolog Insulin (Aspart) 100 unit/mL] 1 unit SUBCUT .PER 50 BG OVER 200 08/28/20 Insulin Aspart [Novolog Insulin (Aspart) 100 unit/mL] 5 unit SUBCUT MEALS 08/28/20 Insulin Glargine,Hum.rec.anlog [Lantus Insulin 100 Unit/1 ml 10 ml] 15 unit SUBCUT DAILY 08/28/20 Lisinopril [Prinivil 10 mg Tablet] 10 mg PO DAILY 08/28/20 Metoprolol Succinate [Toprol Xl 50 mg Tab.sr] 50 mg PO DAILY 08/28/20 Montelukast Sodium [Singulair 10 mg Tablet] 10 mg PO QHS 08/28/20 Omeprazole 40 mg PO ACBRKFST 08/28/20 Paroxetine HCl [Paxil] 40 mg PO DAILY 08/28/20 Quetiapine Fumarate [Seroquel 100 mg Tablet] 150 mg PO QHS 08/28/20 Ranolazine [Ranolazine ER] 500 mg PO Q12 08/28/20 Tizanidine HCl [Zanaflex 4 mg Tablet] 4 mg PO Q8HP PRN 08/28/20 Acetaminophen [Tylenol 325 mg Tablet] 650 mg PO Q4HP PRN tablet 08/29/20 Ondansetron [Zofran Odt 4 mg Tablet] 1 - 2 tab PO Q4HP PRN #10 tab.rapdis 08/29/20 History of Present Illiness History of Present Illness: DEMETRICE MOORE is a 55 year old female with a history of type 1 diabetes, hypertension and hyperlipidemia who presents to the ER with a 1 day duration of intractable nausea and vomiting of ingested matter. She states that she had 10 episodes of nonbloody, nonbilious vomiting since this morning and she has not been able to keep anything down. Associated with this she also reports cramping intermittent epigastric pain of the same duration. Patient states that pain is 9-10/10 intensity at its worst, has no radiation and she has not noticed any clear provoking or relieving factor. She states that she feels lightheaded especially when she tries to move. She also reports that she had a fever of one 1.2 before presenting to the ER which subsided after she took ibuprofen. Patient also states that she recently had a spider bite a month and half ago on the left lower extremity and the wound has been getting worse. She states that her daughter and her daughter's boyfriend have been having similar symptoms the past 2 days. She denies any cough, shortness of breath, chest pain, palpitation, diarrhea, leg swelling. She states that she has been compliant with her insulin. Hospital Course Hospital Course: The patient was admitted to the medical floor for management of dehydration secondary to intractable nausea and vomiting. She was supported with IV fluids, antiemetics as needed, and initially n.p.o. status. As her symptoms improved, she was cautiously advanced to a clear liquid diet which she tolerated well. On day of discharge, she was placed on a soft, low residue diet, without recurrence of her abdominal discomfort, nausea or vomiting. Orthostatic vital signs are normal. She is ambulatory without dizziness, weakness, or palpitations. The patient's urinalysis was somewhat suggestive of UTI. However, she was asymptomatic and urine culture grew coag neg staph (not clinically significant). She did not receive antibiotic therapy. Patient is discharged home in stable condition. She is advised follow-up with her primary care provider within 1 week. Continue drink plenty of fluids, eat as tolerated. Follow consistent carb diet. Take medications as prescribed. She was prescribed Zofran for symptom management should her nausea return. She is encouraged to return to emergency department, as needed, for concerning symptoms. Physical Exam Vital Signs: Temp Pulse Resp BP Pulse Ox 98.4 F 59 L 16 139/44 H 100 08/29/20 12:40 08/29/20 12:40 08/29/20 12:40 08/29/20 12:40 08/29/20 12:40 General appearance: PRESENT: no acute distress, cooperative, thin, well-develope d, well-nourished Head exam: PRESENT: atraumatic, normocephalic Eye exam: PRESENT: conjunctiva pink, EOMI, PERRLA. ABSENT: scleral icterus Mouth exam: PRESENT: moist, tongue midline Teeth exam: PRESENT: poor dentation Respiratory exam: PRESENT: clear to auscultation tobi, symmetrical, unlabored. ABSENT: rales, rhonchi, wheezes Cardiovascular exam: PRESENT: RRR, +S1, +S2. ABSENT: diastolic murmur, rubs, systolic murmur Pulses: PRESENT: normal dorsalis pedis pul Vascular exam: PRESENT: normal capillary refill GI/Abdominal exam: PRESENT: normal bowel sounds, soft. ABSENT: distended, guarding, mass, organolmegaly, rebound, tenderness Rectal exam: PRESENT: deferred Extremities exam: PRESENT: full ROM. ABSENT: calf tenderness, clubbing, pedal edema Musculoskeletal exam: PRESENT: ambulatory - On room air Neurological exam: PRESENT: alert, awake, oriented to person, oriented to place, oriented to time, oriented to situation, CN II-XII grossly intact. ABSENT: motor sensory deficit Psychiatric exam: PRESENT: appropriate affect, normal mood. ABSENT: homicidal ideation, suicidal ideation Skin exam: PRESENT: dry, intact, warm. ABSENT: cyanosis, rash Results Laboratory Results: WBC 7.1 10^3/uL (4.0-10.5) 08/29/20 05:42 RBC 4.49 10^6/uL (3.72-5.28) 08/29/20 05:42 Hgb 13.8 g/dL (12.0-15.5) 08/29/20 05:42 Hct 39.6 % (36.0-47.0) 08/29/20 05:42 MCV 88 fl (80-97) 08/29/20 05:42 MCH 30.7 pg (27.0-33.4) 08/29/20 05:42 MCHC 34.8 g/dL (32.0-36.0) 08/29/20 05:42 RDW 13.7 % (11.5-14.0) 08/29/20 05:42 Plt Count 190 10^3/uL (150-450) 08/29/20 05:42 Lymph % (Auto) 31.3 % (13-45) 08/28/20 05:19 [place] % (Auto) 6.4 % (3-13) 08/28/20 05:19 Eos % (Auto) 2.2 % (0-6) 08/28/20 05:19 Baso % (Auto) 0.6 % (0-2) 08/28/20 05:19 Absolute Neuts (auto) 5.9 10^3/uL (1.7-8.2) 08/28/20 05:19 Absolute Lymphs (auto) 3.1 10^3/uL (0.5-4.7) 08/28/20 05:19 Absolute Monos (auto) 0.6 10^3/uL (0.1-1.4) 08/28/20 05:19 Absolute Eos (auto) 0.2 10^3/uL (0.0-0.6) 08/28/20 05:19 Absolute Basos (auto) 0.1 10^3/uL (0.0-0.2) 08/28/20 05:19 Seg Neutrophils % 59.5 % (42-78) 08/28/20 05:19 ESR 20 mm/hr (0-30) 08/28/20 05:19 Sodium 139.4 mmol/L (137-145) 08/29/20 05:42 Potassium 3.6 mmol/L (3.6-5.0) 08/29/20 05:42 Chloride 109 mmol/L (98-107) H 08/29/20 05:42 Carbon Dioxide 26 mmol/L (22-30) 08/29/20 05:42 Anion Gap 4 (5-19) L 08/29/20 05:42 BUN 22 mg/dL (7-20) H 08/29/20 05:42 Creatinine 0.37 mg/dL (0.52-1.25) L 08/29/20 05:42 Est GFR ( Amer) > 60 (>60) 08/29/20 05:42 Est GFR (Non-Af Amer) Cancelled 08/28/20 05:19 Est GFR (MDRD) Non-Af > 60 (>60) 08/29/20 05:42 Glucose 75 mg/dL (75-110) 08/29/20 05:42 POC Glucose 149 mg/dL (70-110) H 08/29/20 11:03 Lactic Acid 1.3 mmol/L (0.7-2.1) 08/27/20 23:19 Calcium 9.3 mg/dL (8.4-10.2) 08/29/20 05:42 Total Bilirubin 0.6 mg/dL (0.2-1.3) 08/27/20 21:00 Direct Bilirubin 0.2 mg/dL (0.0-0.4) 08/27/20 21:00 Neonat Total Bilirubin Not Reportable 08/27/20 21:00 Neonat Direct Bilirubin Not Reportable 08/27/20 21:00 Neonat Indirect Bili Not Reportable 08/27/20 21:00 AST 18 U/L (14-36) 08/27/20 21:00 ALT 12 U/L (<35) 08/27/20 21:00 Alkaline Phosphatase 111 U/L (38-126) 08/27/20 21:00 Troponin I < 0.012 ng/mL 08/27/20 21:00 C-Reactive Protein < 5.0 mg/L (<10.0) 08/28/20 06:41 Total Protein 7.7 g/dL (6.3-8.2) 08/27/20 21:00 Albumin 4.5 g/dL (3.5-5.0) 08/27/20 21:00 Lipase 34.3 U/L (23-300) 08/28/20 06:41 EGFR Cancelled 08/28/20 05:19 Urine Color YELLOW 08/28/20 06:54 Urine Appearance SLIGHTLY-CLOUDY 08/28/20 06:54 Urine pH 6.0 (5.0-9.0) 08/28/20 06:54 Ur Specific [place] 1.036 08/28/20 06:54 Urine Protein NEGATIVE mg/dL (NEGATIVE) 08/28/20 06:54 Urine Glucose (UA) >=500 mg/dL (NEGATIVE) H 08/28/20 06:54 Urine Ketones NEGATIVE mg/dL (NEGATIVE) 08/28/20 06:54 Urine Blood NEGATIVE (NEGATIVE) 08/28/20 06:54 Urine Nitrite POSITIVE (NEGATIVE) H 08/28/20 06:54 Urine Bilirubin NEGATIVE (NEGATIVE) 08/28/20 06:54 Urine Urobilinogen NEGATIVE mg/dL (<2.0) 08/28/20 06:54 Ur Leukocyte Esterase MODERATE (NEGATIVE) H 08/28/20 06:54 Urine WBC (Auto) 22 /HPF 08/28/20 06:54 Urine RBC (Auto) 7 /HPF 08/28/20 06:54 U Hyaline Cast (Auto) 2 /LPF 08/28/20 06:54 Squamous Epi Cells Auto 5 /HPF 08/28/20 06:54 Urine Mucus (Auto) RARE /LPF 08/28/20 06:54 Urine Ascorbic Acid 40 (NEGATIVE) H 08/28/20 06:54 COVID-19 Source See comment 08/28/20 10:26 COVID-19 (SANTI) Not Detected (Not Detect) 08/28/20 10:26 08/27/20 21:00 Troponin I < 0.012 Impressions: Chest X-Ray 08/27/20 22:35 IMPRESSION: No active disease. Abdomen/Pelvis CT 08/27/20 23:01 IMPRESSION: 1. No acute abdominal or pelvic findings. 2. Findings which may represent constipation but without bowel obstruction or inflammation. Plan Plan of Treatment: Patient is discharged home in stable condition. She is advised to follow-up with her primary care doctor within 1 week. Continue consistent carb diet. Drink plenty of fluids and eat as tolerated. Take medications as prescribed. Return to the emergency department, as needed, for concerning symptoms. Time Spent: Greater than 30 Minutes Stroke Is this a Stroke Patient?: No Acute Heart Failure Is this a Heart Failure Patient?: No
== END 2020-08-29 13:23 | disposition home or self-care (01) ==
LOC: ER 20:51 → INTOOBSV 08-28 01:17 → EH 08-28 01:17 → 3W 08-29 00:32
PROVIDERS: ADMIT Student in an Organized Health Care Education/Training Program; ATTEND Registered Nurse
DX: T63.301A Toxic effect of unspecified spider venom, accidental (unintentional), initial encounter (principal); Z20.828 Contact with and (suspected) exposure to other viral communicable diseases; E10.65 Type 1 diabetes mellitus with hyperglycemia; R11.2 Nausea with vomiting, unspecified; E78.00 Pure hypercholesterolemia, unspecified; I10 Essential (primary) hypertension; E86.9 Volume depletion, unspecified; I25.10 Atherosclerotic heart disease of native coronary artery without angina pectoris; R82.90 Unspecified abnormal findings in urine; Z87.442 Personal history of urinary calculi; Z87.19 Personal history of other diseases of the digestive system; Z88.0 Allergy status to penicillin; Z87.892 Personal history of anaphylaxis; I25.2 Old myocardial infarction; Z88.8 Allergy status to other drugs, medicaments and biological substances; Z88.6 Allergy status to analgesic agent; Z91.040 Latex allergy status; Z79.899 Other long term (current) drug therapy; Z90.710 Acquired absence of both cervix and uterus; F17.210 Nicotine dependence, cigarettes, uncomplicated; D72.829 Elevated white blood cell count, unspecified; M19.90 Unspecified osteoarthritis, unspecified site; Z86.711 Personal history of pulmonary embolism; Z86.19 Personal history of other infectious and parasitic diseases; Z95.5 Presence of coronary angioplasty implant and graft
CPT/HCPCS: 93005; 99285; 96361 ×2; 96374; 96375; 36415 ×3; 87040 ×2; 87086; 82962 ×2; 83605; 83690; 85025 ×2; 85027; 85652; 87635; 86140; 87088; 80048 ×2; 80053; 81001; 84484; 71045; 74177; 93010; G0378 ×3; J3490 ×13; J1815 ×3; J1650 ×2; J2550; J7030 ×3; J3370; S0028; C9803

== ENCOUNTER 2020-10-21 21:38 | Emergency (ER) | payer MEDICAID ==
[2020-10-21] MEDS ORDERED: NORMAL SALINE 1000 ML 1,000 ML IV ONE (22:40)
--- NOTE | 2020-10-21 22:44 | ER Document Report ---
ED General - General TRAVEL OUTSIDE OF THE [place] IN LAST 30 DAYS: No <RJMARINA - Last Filed: 10/22/20 02:24> <PUJA SELBY IV - Last Filed: 10/22/20 04:33> - General Chief Complaint: High Blood Sugar Stated Complaint: HIGH BLOOD SUGAR,HALLLUCINATIONS, WEAKNESS Time Seen by Provider: 10/21/20 22:18 Primary Care Provider: SHARI LAMAS PA-C [Primary Care Provider] - Follow up as needed Notes: This 55-year-old woman presents to the emergency department with history of dropped off by her ex-. Patient has been confused and poorly responsive for the large part of the day. The patient is unable to give a history and she is altered and has decreased responsiveness. A phone call was made to the , he states that he had picked up Ms Gonzalez to go to the grocery store, she was not her normal self. He notes she took some insulin. She was not acting right so he brought her to the emergency department. (MARINA BARRAGAN) - Related Data Allergies/Adverse Reactions: aspirin [Aspirin] Allergy (Severe, Verified 09/15/18 20:14) Hives Influenza A (H1N1)Vaccine 2009 * [Influenza A (H1N1)Vaccine 2008] Allergy (Severe, Verified 09/15/18 20:14) Anaphylaxis Influenza Virus Vaccines [Influenza Virus Vaccine] Allergy (Severe, Verified 09/15/18 20:14) Anaphylaxis Tetanus Vaccines and Toxoid [Tetanus] Allergy (Severe, Verified 09/15/18 20:14) Anaphylaxis latex [Latex] Allergy (Intermediate, Verified 09/15/18 20:14) Hives levofloxacin [From Levaquin] Allergy (Intermediate, Verified 09/15/18 20:14) Hives Penicillins Allergy (Intermediate, Verified 09/15/18 20:14) Hives miconazole [Miconazole] Allergy (Mild, Verified 09/15/18 20:14) Edema levothyroxine sodium [Levothyroxine Sodium] Allergy (Verified 09/15/18 20:14) swelling lidocaine Allergy (Verified 09/15/18 20:14) Past Medical History - Social History Smoking Status: Current Every Day Smoker Family History: Reviewed & Not Pertinent - Past Medical History Cardiac Medical History: Reports: Hx Coronary Artery Disease, Hx Heart Attack, Hx Hypercholesterolemia, Hx Hypertension, Hx Pulmonary Embolism - 2006 Denies: Hx Atrial Fibrillation, Hx Congestive Heart Failure, Hx Peripheral Vascular Disease, Hx Heart Murmur Pulmonary Medical History: Reports: Hx Asthma, Hx Bronchitis, Hx Pneumonia, Hx Respiratory Failure Denies: Hx COPD, Hx Sleep Apnea, Hx Tuberculosis Neurological Medical History: Reports: Hx Cerebrovascular Accident - Memory loss, Hx Migraine. Denies: Hx Seizures, Hx Parkinson's Disease Endocrine Medical History: Reports: Hx Diabetes Mellitus Type 2, Hx Hypothyroidism. Denies: Hx Graves' Disease, Hx Hyperthyroidism Renal/ Medical History: Reports: Hx Kidney Stones, Hx Pelvic Inflammatory Disease. Denies: Hx End Stage Renal Disease, Hx Ovarian Cysts, Hx Peritoneal Dialysis Malignancy Medical History: Denies: Hx Breast Cancer, Hx Cervical Cancer, Hx Leukemia, Hx Lung Cancer, Hx Ovarian Cancer GI Medical History: Reports: Hx Irritable Bowel, Hx Liver Failure - 2010, Hx Ulcer. Denies: Hx Crohn's Disease, Hx Gastroesophageal Reflux Disease, Hx Hiatal Hernia, Hx Pancreatitis Musculoskeletal Medical History: Reports Hx Arthritis, Denies Hx Fibromyalgia, Denies Hx Multiple Sclerosis, Denies Hx Muscular Dystrophy, Denies Hx Systemic Lupus Erythematosus Psychiatric Medical History: Reports: Hx Depression Denies: Hx Bipolar Disorder, Hx Dementia, Hx Post Traumatic Stress Disorder, Hx Schizophrenia Traumatic Medical History: Reports: Hx Fractures Infectious Medical History: Denies: Hx HIV Past Surgical History: Reports: Hx Cardiac Surgery - stent placed 2019, Hx Section - partial 2008, Hx Gynecologic Surgery - partial hysterectomy, Hx Hysterectomy, Hx Orthopedic Surgery - back, right knee, left ankle. Denies: Hx Appendectomy, Hx Bowel Surgery, Hx Cholecystectomy, Hx Colostomy, Hx Coronary Artery Bypass Graft, Hx Gastric Bypass Surgery, Hx Herniorrhaphy, Hx Mastectomy, Hx Pacemaker, Hx Tonsillectomy, Hx Tubal Ligation - Immunizations Hx Diphtheria, Pertussis, Tetanus Vaccination: No - allergic <MARINA BARRAGAN - Last Filed: 10/22/20 02:24> Review of Systems - Review of Systems -: Yes ROS unobtainable due to patient's medical condition - Has altered mental status <MARINA BARRAGAN - Last Filed: 10/22/20 02:24> Physical Exam <MARINA BARRAGAN - Last Filed: 10/22/20 02:24> - Vital signs Vitals: Temp 98.1 F 10/21/20 21:39 - Notes Notes: PHYSICAL EXAMINATION: Physical Exam: General: Ill appearing 55-year-old poorly responsive. HEENT: NC/AT, pupils equal round and reactive to light, MM dry,nares clear, oropharynx clear, airway patent Neck: supple, no adenopathy, no masses. Good range of motion Lungs: clear, no wheezing, no rales no rhonchi CVS: Regular rate and rhythm no murmur gallop or rub Abdomen: Soft, active, nontender, no masses, no hepatosplenomegaly Ext: No edema, clubbing or cyanosis. Neuro: Drowsy, arousable, moving all 4 extremities on command, cranial nerves intact, no focal findings Skin: Tenting (MARINA BARRAGAN) Course - Laboratory Results Result Diagrams: 10/21/20 22:25 10/21/20 22:25 - EKG Interpretation by Me Rate: Normal - EKG interpreted by Dr. Barragan: Normal sinus rhythm, rate 76, ME interval 156 ms QT interval 400 ms, normal axis, probable biatrial abnorma lities, LVH with repol abn., compared to EKG dated 08/27/20, there is no significant interval changes. Interpretation: abnormal EKG <MARINA BARRAGAN - Last Filed: 10/22/20 02:24> - Laboratory Results Result Diagrams: 10/21/20 22:25 10/21/20 22:25 Critical Laboratory Results Reviewed: Yes Attending or Supervising Physician who Reviewed Labs: MARINA BARRAGAN - Radiology Results Critical Radiology Results Reviewed: No Critical Results <PUJA SELBY IV - Last Filed: 10/22/20 04:33> - Re-evaluation Re-evalutation: 10/22/20 02:14 Patient initially poorly responsive and arousable but unable to give history. After the urine was collected she was given 0.4 mg of Narcan, patient became more alert more easily aroused and directable. She was able to tell us her name and also that she uses gabapentin and tramadol for pain. Also notes that she smokes a pack and half cigarettes per day and presently less comfortable with the exception of the chronic neck pain. She is presently waiting the results of the urinalysis and urine drug screen. I discussed the patient with my colleague Dr. Selby, I believe that the patient be hydrated to monitor closely and possibly discharge from the emergency department if she continues to have progressive improvement in her status. (MARINA BARRAGAN) 10/22/20 04:29 Patient has become notably more awake and alert after receiving Narcan. This MD went into check on the patient. Patient states that she feels fine at this point. Patient denies headache, visual changes, chest pain, shortness of aisha th, abdominal pain, nausea, vomiting. Results of ED MSE discussed with patient. Emergency signs and symptoms, reasons to return to the emergency department discussed with patient. (PUJA SELBY IV) - Vital Signs Vital signs: Temp Pulse Resp BP Pulse Ox 98.1 F 15 119/71 99 10/21/20 21:39 10/22/20 04:01 10/22/20 04:01 10/22/20 04:01 - Laboratory Results Laboratory Results Interpreted: 10/21/20 10/21/20 10/21/20 21:58 22:25 22:25 WBC 17.8 H Absolute Neuts (auto) 10.4 H Absolute Lymphs (auto) 5.6 H ABG pO2 ABG HCO3 ABG Total CO2 ABG O2 Saturation Sodium 133.5 L Chloride 94 L BUN 22 H POC Glucose 188 H Calcium 11.1 H Ammonia Urine Glucose (UA) Leukocyte Esterase Rfl Salicylates Acetaminophen 10/21/20 10/21/20 10/21/20 22:25 22:25 23:48 WBC Absolute Neuts (auto) Absolute Lymphs (auto) ABG pO2 67.4 L ABG HCO3 25.0 H ABG Total CO2 26.3 H ABG O2 Saturation 93.3 L Sodium Chloride BUN POC Glucose Calcium Ammonia Urine Glucose (UA) Leukocyte Esterase Rfl Salicylates < 1.0 L Acetaminophen < 10 L 10/22/20 10/22/20 00:18 01:43 WBC Absolute Neuts (auto) Absolute Lymphs (auto) ABG pO2 ABG HCO3 ABG Total CO2 ABG O2 Saturation Sodium Chloride BUN POC Glucose Calcium Ammonia < 8.7 L Urine Glucose (UA) >=500 H Leukocyte Esterase Rfl TRACE H Salicylates Acetaminophen Critical Care Note - Critical Care Note Total time excluding time spent on procedures (mins): 60 - Critical care time spent obtaining history from patient or surrogate, discussions with consultants, development of treatment plan with patient or surrogate, evaluation of patient's response to treatment, examination of patient, ordering and performing treatme nts and interventions, ordering and review of laboratory studies, re-evaluation of patient's condition, ordering and review of radiographic studies and review of old charts <MARINA BARRAGAN - Last Filed: 10/22/20 02:24> Discharge <MARINA BARRAGAN - Last Filed: 10/22/20 02:24> <PUJA SELBY MAYDA - Last Filed: 10/22/20 04:33> - Discharge Clinical Impression: Altered mental status Qualifiers: Altered mental status type: unspecified Qualified Code(s): R41.82 - Altered mental status, unspecified Condition: Stable Disposition: HOME, SELF-CARE Additional Instructions: Return to the Emergency Department without delay if any worse. HOME CARE INSTRUCTIONS & INFORMATION: Thank you for choosing us for your medical needs. We hope you're satisfied with the care you received. After you leave, you must properly care for your problem and, at the same time, observe its progress. Any condition can change. Some illnesses can change rapidly over hours or days. If your condition worsens, return to the Emergency Department or see your physician promptly. ABOUT YOUR X-RAYS AND EKG'S: If you had an EKG or X-rays taken, they have been read by the Emergency Physician. The X-rays and EKG's will also be read by a Radiologist or Furniture Rental Consultant within 24 hours. If discrepancies are noted, you will be notified by telephone. Please be certain the ED has a correct telephone number & address where you can be reached. Also, realize that some fractures or abnormalities do not show up on initial X-rays. If your symptoms continue, see your physician. ABOUT YOUR LABORATORY TEST: If you had laboratory tests, the results have been reviewed by the Emergency Physician. Some test results (for example cultures) may not be available for several days. You will be contacted if any test result shows you need additional treatment. Please be certain the ED has a correct telephone number and address where you can be reached. ABOUT YOUR MEDICATIONS: You will receive instructions on how to take your medicine on the prescription label you receive. Additional information may be provided by the Pharmacy. If you have questions afterwards, call the ED for clarification or further instructions. Some prescribed medications may cause drowsiness. Do not perform tasks such as driving a car or operating machinery without consulting your Pharmacist. If you feel you need a refill of pain medication, your condition will need re-evaluation. Please do not call for a refill of any medication. ABOUT YOUR SIGNATURE: Signature of this document acknowledges to followin. Understanding that you received emergency treatment and that you may be released before al medical problems are known or treated. Please be certain the ED has a correct phone number & address where you can be reached. 2. Acknowledgement that you will arrange for follow-up care as recommended. 3. Authorization for the Emergency Physician to provide information to your follow-up Physician in order to maximize your care. AT ANY TIME, IF YOUR SYMPTOMS CHANGE SIGNIFICANTLY OR WORSEN OR YOU DEVELOP NEW SYMPTOMS, RETURN TO THE EMERGENCY DEPARTMENT IMMEDIATELY FOR RE-EVALUATION. OUR GOAL IS TO PROVIDE EXCELLENT MEDICAL CARE! WE HOPE THAT WE HAVE MET YOUR EXPECTATIONS DURING YOUR EMERGENCY DEPARTMENT VISIT AND THAT YOU FEEL YOU HAVE RECEIVED EXCELLENT CARE! Referrals: SHARI LAMAS PA-C [Primary Care Provider] - Follow up as needed
[2020-10-21 23:00] LABS: ABSOLUTE BASOPHILS # (AUTO) 0.1 10^3/uL (0.0-0.2); ABSOLUTE EOSINOPHILS # (AUTO) 0.4 10^3/uL (0.0-0.6); ABSOLUTE LYMPHOCYTES (AUTO) 5.6 10^3/uL (0.5-4.7); ABSOLUTE MONOCYTES (AUTO) 1.4 10^3/uL (0.1-1.4); ABSOLUTE NEUT (AUTO) 10.4 10^3/uL (1.7-8.2); BASOPHILS % (AUTO) 0.4 % (0-2); EOSINOPHILS % (AUTO) 2.1 % (0-6); HEMATOCRIT 44.3 % (36.0-47.0); HEMOGLOBIN 15.4 g/dL (12.0-15.5); LYMPHOCYTES % (AUTO) 31.5 % (13-45); MEAN CORPUSCULAR HGB CONC 34.7 g/dL (32.0-36.0); MEAN CORPUSCULAR VOLUME 87 fl (80-97); MONOCYTES % (AUTO) 7.7 % (3-13); PLATELET COUNT 253 10^3/uL (150-450); RED BLOOD COUNT 5.12 10^6/uL (3.72-5.28); RED CELL DISTRIBUTION WIDTH 12.2 % (11.5-14.0); SEGMENTED NEUTROPHILS % (AUTO) 58.3 % (42-78); TOTAL CELLS COUNTED % (AUTO) 100 %; WHITE BLOOD COUNT 17.8 10^3/uL (4.0-10.5)
[2020-10-21 23:08] LABS: INTERNATIONAL RATION (INR) 0.92; PROTHROMBIN TIME 12.6 SEC (11.4-15.4)
[2020-10-21 23:09] LABS: ALBUMIN 4.7 g/dL (3.5-5.0); ALKALINE PHOSPHATASE 120 U/L (38-126); ANION GAP 10 (5-19); ASPARTATE AMINO TRANSFERASE 22 U/L (14-36); BILIRUBIN,DIRECT 0.2 mg/dL (0.0-0.4); BILIRUBIN,TOTAL 0.6 mg/dL (0.2-1.3); BLOOD UREA NITROGEN 22 mg/dL (7-20); CALCIUM 11.1 mg/dL (8.4-10.2); CARBON DIOXIDE 30 mmol/L (22-30); CHLORIDE 94 mmol/L (98-107); GLUCOSE 106 mg/dL (75-110); POTASSIUM 3.7 mmol/L (3.6-5.0); TOTAL PROTEIN 8.1 g/dL (6.3-8.2)
[2020-10-21 23:10] LABS: ALCOHOL < 10 mg/dL (NONE DETECTED)
--- NOTE | 2020-10-21 23:53 | RADIOLOGY REPORT (SQ) ---
CLINICAL HISTORY: Altered mental status COMPARISON: 08/27/2020. TECHNIQUE: XR CHEST 1 VIEW 10/21/2020 10:38 PM [employer]PLIANCE [employer]CTS FINDINGS: The heart is borderline in size. Lungs are clear without consolidation, atelectasis, mass or edema. There is no pleural effusion. There is no pneumothorax. There are no acute osseous findings. IMPRESSION: Clear lungs.
[2020-10-22 00:07] LABS: ARTERIAL BLOOD BASE EXCESS -0.1 mmol/L; ARTERIAL BLOOD H2CO3 1.27 mmol/L (1.05-1.35); ARTERIAL BLOOD O2 SATURATION 93.3 % (94-98); ARTERIAL BLOOD PCO2 42.2 mmHg (35-45); ARTERIAL BLOOD PH 7.39 (7.35-7.45); ARTERIAL BLOOD PO2 67.4 mmHg (80-100); ARTERIAL BLOOD TOTAL CO2 26.3 mmol/L (21-25)
[2020-10-22 00:11] LABS: ARTERIAL BLOOD FIO2 ROOM AIR
--- NOTE | 2020-10-22 00:52 | RADIOLOGY REPORT (SQ) ---
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 COMPARISON: CT the head from 06/06/2020 TECHNIQUE: Multiple axial contiguous images were obtained through the head without intravenous contrast administered. This exam was performed according to our departmental dose-optimization program, which includes automated exposure control, adjustment of the mA and/or KV according to the patient's size and/or use of iterative reconstruction technique. FINDINGS: The ventricles are within normal limits for size. Both globes appear symmetric. The mastoid air cells appear clear. The visualized paranasal sinuses appear clear. The calvarium is intact. No extra-axial fluid collection is seen. The garcia-white matter differentiation is within normal limits. No midline shift or mass effect is apparent. There are no findings to suggest acute intracranial hemorrhage. IMPRESSION: No acute intracranial hemorrhage is seen.
[2020-10-22] MEDS ORDERED: NALOXONE HCL INJ/PF 0.4 MG/1 ML SDV IV ONE (01:51)
[2020-10-22] MEDS ORDERED: NORMAL SALINE 1000 ML 1,000 ML IV ONE (01:57)
[2020-10-22 02:00] LABS: APPEARANCE,URINE CLEAR; BILIRUBIN,URINE NEGATIVE (NEGATIVE); COLOR,URINE STRAW; GLUCOSE, URINE >=500 mg/dL (NEGATIVE); KETONES,URINE NEGATIVE (NEGATIVE); PROTEIN,URINE NEGATIVE (NEGATIVE); URINE SPECIFIC GRAVITY 1.005; UROBILINOGEN,URINE NEGATIVE mg/dL (<2.0)
[2020-10-22 02:18] LABS: URINE AMPHETAMINES SCREEN NEGATIVE; URINE BARBITURATES SCREEN NEGATIVE; URINE BENZODIAZEPINES SCREEN NEGATIVE; URINE COCAINE SCREEN NEGATIVE; URINE MARIJUANA (THC) SCREEN NEGATIVE; URINE METHADONE SCREEN NEGATIVE; URINE PHENCYCLIDINE SCREEN NEGATIVE
[2020-10-22 05:06] VITALS: BP 141/78
--- NOTE | 2020-10-22 18:00 | EKG REPORT ---
SEVERITY:- ABNORMAL ECG - SINUS RHYTHM BIATRIAL ABNORMALITIES PROBABLE LVH WITH SECONDARY REPOL ABNRM : Confirmed by: Fernanda Edwards MD 22-Oct-2020 17:59:24
== END 2020-10-22 05:06 | disposition home or self-care (01) ==
LOC: ER 21:38
DX: R41.0 Disorientation, unspecified (principal); R40.0 Somnolence; I11.9 Hypertensive heart disease without heart failure; I25.10 Atherosclerotic heart disease of native coronary artery without angina pectoris; I25.2 Old myocardial infarction; J45.909 Unspecified asthma, uncomplicated; E11.9 Type 2 diabetes mellitus without complications; M54.2 Cervicalgia; G89.29 Other chronic pain; Z79.899 Other long term (current) drug therapy; Z86.73 Personal history of transient ischemic attack (TIA), and cerebral infarction without residual deficits; Z88.8 Allergy status to other drugs, medicaments and biological substances; Z88.7 Allergy status to serum and vaccine; Z91.040 Latex allergy status; Z88.1 Allergy status to other antibiotic agents; Z88.0 Allergy status to penicillin; Z88.4 Allergy status to anesthetic agent; Z95.5 Presence of coronary angioplasty implant and graft; F17.210 Nicotine dependence, cigarettes, uncomplicated
CPT/HCPCS: 99285; 96361; 96374; 36415; 87040; 87086; 82962; 80307 ×4; 82140; 82803; 83605; 83735; 85025; 85610; 80053; 81001; 71045; 70450; 93005; 93010; J2310; J7030 ×2